=== PATIENT | male | born 1950 | race Caucasian/White ===

== ENCOUNTER 2021-08-04 07:24 | Day surgery (SDC) | payer OTHER ==
[2021-07-31 10:50] LABS: Basophils % 1.1 % (0-1.3); Lymphocytes % 22.2 % (15.3-44.8); MPV 8.9 fL (7.6-11.3); RBC Red Blood Cell Count 4.91 M/uL (4.33-5.43)
[2021-07-31 10:55] LABS: Protime INR 2.15
--- NOTE | 2021-07-31 11:26 | RAD REPORT ---
EXAM DESCRIPTION: RAD - Chest Pa And Lat (2 Views) - 07/31/2021 11:06 am CLINICAL HISTORY: Pre Op Carotid Angiogram COMPARISON: Chest Single View dated 05/17/2017 FINDINGS: Lines: None. Lungs: No evidence of edema or pneumonia. Pleural: No significant pleural effusions or pneumothorax. Cardiac: The heart size is within normal limits. Bones: No acute fractures. Other: IMPRESSION: No acute cardiopulmonary disease.
[~2021-08-04 07:24] MED LIST: HEPA 1000U/500MLS 1,000 UNIT/500 ML BAG IV ONE; LIDOCAINE 1% 20 ML MDV ONE
[2021-08-04] MEDS ORDERED: NA CHLORIDE 0.9% 500 ML ONE (08:02)
[2021-08-04] MEDS ORDERED: MIDAZOLAM HCL 2 MG/2 ML INJ ONE (09:59)
[2021-08-04] MEDS ORDERED: ATROPINE SULF 1 MG/10 ML SYR IV ONE (09:59)
[2021-08-04] MEDS ORDERED: FENTANYL CITR 100 MCG/2 ML ONE (09:59)
[2021-08-04] MEDS ORDERED: LIDOCAINE 1% 20 ML MDV ONE (10:25)
[2021-08-04 17:20] VITALS: BP 166/84; TEMP 97.2; O2SAT 94
--- NOTE | 2021-08-05 21:08 | OP ---
Date of Procedure: 08/04/2021 Surgeon: Deon Valentine MD Echocardiologist: Daksha Galeana. Procedure: Selective bilateral carotid angiograms. Indication: Cerebrovascular disease, abnormal carotid Doppler. Procedure In Detail: The patient was brought to the laborer as an outpatient on 08/04/2021. He was prepped and draped in the routine sterile fashion. He was given Versed and fentanyl for sedation. A 6-Turkish sheath was introduced in the right common femoral artery. Angiography there was very abno rmal with severe peripheral arterial disease in the common femoral, common iliac, external iliac. We were able to get through with a Wholey wire. We had to hold pressure manually for hemostasis. Yennifer o-Seal or StarClose were not possible, had his femoral access sheath in the right common femoral eric ry using the Seldinger technique and 10 mL of Xylocaine. The carotid angiogram was done using a JR4 catheter. We selected the right common carotid artery that showed a complete occlusion of the right ICA. Has some diffuse disease in the ECA. The right common carotid was normal. The catheter was th en moved to the left common carotid, which showed normal left common carotid, fairly normal external carotid, but he had severe stenosis 80% to 90% in the left internal carotid artery. There were no co mplications. Blood loss was 5 mL. The patient tolerated the procedure well. Anesthesia: Total conscious sedation was 45 minutes. Final Diagnosis: Severe cerebrovascular disease. Plan: For endarterectomy on the left side. The patient will remain in the hospital for 4 hours at [facility], then go home. I will make an arrangement for him to see Dr. Sixto Aguilar as an outpatient at [facility] for the surgery on his le ft neck. FABI/KAREN Voice ID: [id number] Report ID: [id number]
== END 2021-08-04 16:50 | disposition home or self-care (01) ==
LOC: CCL 07:24
DX: I65.23 Occlusion and stenosis of bilateral carotid arteries (principal); I70.201 Unspecified atherosclerosis of native arteries of extremities, right leg; I48.21 Permanent atrial fibrillation; I10 Essential (primary) hypertension; I35.1 Nonrheumatic aortic (valve) insufficiency; I34.0 Nonrheumatic mitral (valve) insufficiency; I42.9 Cardiomyopathy, unspecified; I51.7 Cardiomegaly; R73.03 Prediabetes; Z20.822 Contact with and (suspected) exposure to COVID-19
CPT/HCPCS: 85025; 80048; 36415; 85610; 85730; 71046; 36222; U0003; C1893; J2250; J3010; J7040; J1644

== ENCOUNTER 2023-06-16 07:00 | Day surgery (SDC) | payer OTHER ==
[2023-06-14 11:38] LABS: Absolute Lymphocytes (CBC) 2.3 K/uL (0.7-4.9); Hematocrit 43.5 % (39.6-49.0); Lymphocytes % 23.2 % (15.3-44.8); MCV 93.5 fL (80-100); MPV 10.3 fL (7.6-11.3); Platelets 360 thou/uL (152-406); RBC Red Blood Cell Count 4.65 M/uL (4.33-5.43)
[2023-06-14 11:44] LABS: Protime INR 2.04
--- NOTE | 2023-06-14 11:55 | RAD REPORT ---
EXAM DESCRIPTION: RAD - Chest Pa And Lat (2 Views) - 06/14/2023 11:09 am CLINICAL HISTORY: Pre op pending abdominal angiogram. Hypertension COMPARISON: Chest Pa And Lat (2 Views) dated 07/31/2021; Chest Single View dated 05/17/2017 TECHNIQUE: PA and lateral views of the chest were obtained. FINDINGS: The lungs are clear. Heart size is normal and central vasculature is within normal limits. No pleural effusion or pneumothorax seen. No acute bony finding noted. IMPRESSION: No acute cardiopulmonary process.
--- NOTE | 2023-06-14 13:07 | EKG ---
Test Date: 2023-06-14 Test Time: 10:44:22 Radiological Technologist: IZABEL MEASUREMENT RESULTS: Intervals: Rate: 62 VA: QRSD: 84 QT: 428 QTc: 434 [place]: P: VA: QRS: 71 T: 257 INTERPRETIVE STATEMENTS: Atrial fibrillation Moderate voltage criteria for LVH, may be normal variant Cannot rule out Septal infarct, age undetermined ST & T wave abnormality, consider inferolateral ischemia or digitalis effect Abnormal ECG Compared to ECG 06/17/2017 07:47:10 Left ventricular hypertrophy now present Sinus bradycardia no longer present Atrial abnormality no longer present Myocardial infarct finding still present ST (T wave) deviation still present Possible ischemia still present Electronically Signed On 06-14-23 13:07:27 CDT by Alfred Graves
[2023-06-16] MEDS ORDERED: LIDOCAINE 1% 20 ML MDV ONE (07:23)
[2023-06-16] MEDS ORDERED: HEPA 1000U/500MLS 2,000 UNIT/1,000 ML BAG IV ONE (07:23)
[2023-06-16] MEDS ORDERED: MIDAZOLAM HCL 2 MG/2 ML INJ ONE (07:24)
[2023-06-16] MEDS ORDERED: HEPARIN 10,000 UNIT/10 ML VIAL IV ONE (07:24)
[2023-06-16] MEDS ORDERED: HEPARIN 5000 UNIT/ML 1 ML VIAL ONE (07:24)
[2023-06-16] MEDS ORDERED: FENTANYL CITR 100 MCG/2 ML ONE (07:24)
[2023-06-16] MEDS ORDERED: VERAPAMIL HCL 10 MG/4 ML VIAL IV ONE (07:24)
[2023-06-16] MEDS ORDERED: NITROGLYCERIN/D5W 25 MG/250 ML BTL IV ONE (07:25)
[2023-06-16] MEDS ORDERED: ATROPINE SULF 1 MG/10 ML SYR IV ONE (07:25)
[2023-06-16] MEDS ORDERED: NITROGLYCERIN 100 MCG/ML SYR (for cath lab use only) IV ONE (07:25)
[2023-06-16] MEDS ORDERED: NA CHLORIDE 0.9% 500 ML ONE (07:27)
[2023-06-16 10:55] VITALS: BP 148/59; O2SAT 97
--- NOTE | 2023-06-16 18:20 | OP ---
Date of Procedure: 06/16/2023 Surgeon: DAXA MERCHANT Procedure Performed: Peripheral angiogram with runoff. Indication: Severe peripheral vascular disease. Access: Right radial artery 6-St Helenian closed with TR band. Complications: None. Bleeding: Less than 5 mL. Anesthesia: Total sedation time was 30 minutes, used fentanyl and Versed incremental doses. Description Of Procedure: After risks, benefits, alternatives were explained, the patient agreed to procedure and signed informed consent. The patient was brought into cardiac catheterization laborato , prepped and draped in the usual sterile fashion. Then, I accessed right radial artery using pedi atric micropuncture kit, placed 6-St Helenian Slender sheath, took 5-St Helenian [place] 4.0 catheter into the ao rtic root and then sent a wire into the descending aorta and then exchanged for a long 4-St Helenian pigta il catheter, placed it in the distal aorta and performed a distal aortogram and runoff. Then, I jennifer pooja the catheter and the sheath, placed TR band with good hemostasis. Findings: 1.Distal aorta is widely patent. 2.Right lower extremity; there is diffuse disease, starts with the right common iliac. There is 20% to 30% stenosis and right external iliac has focal 50%. Then, the right femoral artery has about a focal 50%. The profunda is patent and the SFA has multiple areas of stenosis, heavily calcified, ran ging between 60%and 90%, and there was a 3-vessel runoff below the knee. 3.The left lower extremity; the common iliac has 20% to 30% and the external iliac has 50% stenosis, and the common femoral artery has about 20% to 30% stenosis and the profunda is patent. Then, the S FA on the left has proximal 50% and then becomes [employer] and there were small collaterals feeding the leg besides the profunda. Conclusion: Severe bilateral peripheral vascular disease. Plan: To intervene on the right lower extremity with CSI atherectomy or shock wave and possible sten ting to be done at [place]. As far as the left side has chronic total occlusion, it is going to b e very difficult to open this artery, but we will do a close look once we do the intervention on the right leg by trying to send the catheter into the femoral artery and have a better understanding of t he left lower extremities. SR/MODL Voice ID: [id number] Report ID: [id number]
== END 2023-06-16 10:05 | disposition home or self-care (01) ==
LOC: CCL 07:00
PROVIDERS: ATTEND Internal Medicine
DX: I70.203 Unspecified atherosclerosis of native arteries of extremities, bilateral legs (principal); I70.92 Chronic total occlusion of artery of the extremities; I65.23 Occlusion and stenosis of bilateral carotid arteries; I11.0 Hypertensive heart disease with heart failure; I50.32 Chronic diastolic (congestive) heart failure; I35.0 Nonrheumatic aortic (valve) stenosis; I48.19 Other persistent atrial fibrillation; I42.9 Cardiomyopathy, unspecified; R73.03 Prediabetes; Z87.891 Personal history of nicotine dependence; Z79.01 Long term (current) use of anticoagulants; Z79.899 Other long term (current) drug therapy
CPT/HCPCS: 36200; 36415; 71046; 75630; 76937; 80048; 82947; 85025; 85610; 85730; 93005; C1893; J0461; J1644; J2001; J2250; J3010; J7040

== ENCOUNTER 2023-06-21 08:22 | Observation (INO) | payer OTHER ==
--- OUTSIDE RECORDS SUMMARY | 2023-06-21 08:28 | XMS REPORT | Continuity of Care Document ---
:1950 Author Organization [facility] t Address [address] [place] [address] [place] [id number] Care Team Providers Name Role Phone Ellen Baugh Primary Care Physician PAUL HUTCHINS Attending Clinician Unavailable ALMA GONZALEZ Attending Clinician Unavailable Leo Dial MD Attending Clinician LEO DIAL Attending Clinician Unavailable Doctor Unassigned, [place] Attending Clinician Unavailable Kanika Mancini Attending Clinician Pob, [facility] Attending Clinician Unavailable KANIKA LOOMIS Attending Clinician Unavailable PAUL HUTCHINS Admitting Clinician Unavailable ALMA GONZALEZ Admitting Clinician Unavailable Payers Payer Name Policy Type Policy Number Effective Date Expiration Date [employer] MEDICARE A B [id number] 2015 00:00:00 GENERIC MEDICARE [id number] 2015 SUPPLEMENT 00:00:00 Problems Condition Condition Condition Status Onset Resolution Last Treating Co mments Source Name Details Category Date Date Treatment Clinician Date [place] of [place] of Disease Active [facility] lower lobe lower lobe 1-07 Indira kes of left of left 00:00: Medical lung lung 00 Center Sebaceous Sebaceous Disease Active [facility] cyst cyst [facility]04 [facility] 00:[facility]: Medical 00 [place] Pleural Pleural Disease Active [facility] effusion effusion 1-03 [facility] on left on left 00:00: Medical 00 [place] Peripheral Peripheral Disease Active [facility] edema edema 1-03 [facility] bilateral bilateral 00:00: [facility] amie 00 Center Encounter Encounter Disease Active 2020-[address] [facility] for for 1-09 [facility] long-term long-term 00:00: Medi amie (current) (current) 00 Cent er use of use of antiplatel antiplatel ets/antith ets/antith rombotics rombotics Bilateral Bilateral Disease Active 2020-[address] [facility] carotid carotid 11-09 [facility] artery artery 00:00: Medical stenosis stenosis 00 Center Atheroscle Atheroscle Disease Recurre 2020-[address] [facility] [address] rosis of rosis of nce 11-09 [facility] sokaogon sokaogon 00:00: Medical arteries arteries 00 Center of of [facility] s with s with intermitte intermitte nt nt claudicati claudicati on, on, bilateral bilateral legs legs Carotid Carotid Disease Active 2020-[address] [facility] [address] artery artery 11-06 [facility] occlusion occlusion 00:00: Medi amie without without 00 Center infarction infarction , right , right Carotid Carotid Disease Active 2020-[address] [facility] artery artery 11-06 [facility] stenosis stenosis 00:00: Medica l without without 00 Center cerebral cerebral infarction infarction , , left-stent left-stent 09/09/21 09/09/21 Chronic Chronic Disease Active 2020-[address] [facility] [address] anticoagul anticoagul 11-06 Indira kes ation ation 00:00: Medical 00 Center Primary Primary Disease Active 2020-[address] [facility] [address] hypertensi hypertensi 06 Indira kes on on 00:00: Medical 00 Center HLD HLD Disease Active 2020-[address] [facility] [address] (hyperlipi (hyperlipi 11-06 Indira kes demia) demia) 00:00: Medical 00 Center PVD PVD Disease Recurre 2020-[address] [facility] (periphera (periphera nce 11-06 Indira kes l vascular l vascular 00:00: Me dical disease) disease) 00 Center with with claudicati claudicati on on Atrial Atrial Disease Recurre 2020-[address] [facility] [address] fibrillati fibrillati nce 11-06 Indira kes on (HCC) on (HCC) 00:00: Medica l with RVR with RVR 00 Center No known No known Disease Unive rs active active ity of problems problems [facility] Allergies, Adverse Reactions, Alerts Allergy Allergy Status Severity Reaction(s) Onset Inactive Treating Comm ents Source Name Type Date Date Clinician NO KNOWN [facility]ergy [facility] Drug Active Univers ALLERGIE Class ity of S [facility] Social History Social Habit Start Date Stop Date Quantity Comments Source Exposure to Not sure University of SARS-CoV-2 [facility] (event) Branch History of Smokes tobacco [facility] Tobacco use and 2021-11-11 2021-11-11 Smokeless tobacco [facility] exposure 00:[facility]:00 00:00:00 non-user Medical Center Alcohol intake 2021-11-11 2021-11-11 Ex-drinker [facility] 00:00:00 00:00:00 (finding) Medical Center Sex Assigned At [birth year] [facility] Indira enriques 00:00:00 00:00:00 Medical Center Smoking Status Start Date Stop Date Source Smokes tobacco daily 2021-11-11 00:00:00 [facility] Current some day smoker 2021-02-14 00:00:00 [facility] Medications Ordered Filled Start Stop Current Ordering Indication Dosage Frequency Signature Comments Components Source Medication Medication Date Date Medication? Clinician (SIG) Name Name digoxin 2022- No 125ug QD Take [address] [facility] (LANOXIN) 11-12 tablet [facility] 0.125 MG 00:00: 23:59 (125 mcg Medi amie tablet 00 :00 total) by Center mouth daily. rosuvastati 2022- No 20mg QD Take [address] [facility] n (CRESTOR) 11-12 tablet (20 L ukes 20 MG 00:00: 23:59 mg total) Medica l tablet 00 :00 by mouth Center daily. digoxin 2022- No 125ug QD Take [address] [facility] (LANOXIN) 11-12 tablet [facility] 0.125 MG 00:00: 23:59 (125 mcg Medi amie tablet 00 :00 total) by Center mouth daily. rosuvastati 2022- No 20mg QD Take [address] [facility] n (CRESTOR) 11-12 tablet (20 L ukes 20 MG 00:00: 23:59 mg total) Medica l tablet 00 :00 by mouth Center daily. rivaroxaban Yes Take by [facility] (XARELTO) 11-11 mouth [facility] 20 mg Tab 20:30: daily with Me dical tablet 48 dinner. Center furosemide 2022-0 Yes 40mg Q.5D Take [address] (Lasix) 40 1-11 by mouth 2 Jul[place] es MG tablet 20:30: (two) Medical 48 times Center daily. rivaroxaban 2021-0 Yes Take by [facility] (XARELTO) 1-11 mouth [facility] 20 mg Tab 20:30: daily with Me dical tablet 48 dinner. Center furosemide 2021-0 Yes 40mg Q.5D Take [address] (Lasix) 40 1-11 by mouth 2 [place] es MG tablet 20:30: (two) Medical 48 times Center daily. sacubitriL- 2021-0 Yes 1{tbl} Q.5D Take [address] valsartan 1-11 tablet by [facility] (ENTRESTO) 00:00: mouth 2 Medi amie 97-103 mg 00 (two) Center Tab times daily. sacubitriL- 2021-0 Yes 1{tbl} Q.5D Take [address] valsartan 1-11 tablet by [facility] (ENTRESTO) 00:00: mouth 2 Medi amie 97-103 mg 00 (two) Center Tab times daily. methylPREDN 2020-0 Yes [id number] 84mg Take 21 Univers ISolone 4-08 9100 tablets by ity of (MEDROL, 00:00: mouth [place] GARY,) 4 mg 00 SEE-INSTRU Med ical tablets CTIONS. Branch follow package directions methylPREDN 2021-0 Yes [id number] 84mg Take 21 Univers ISolone 4-08 9100 tablets by ity of (MEDROL, 00:00: mouth [place] GARY,) 4 mg 00 SEE-INSTRU Med ical tablets CTIONS. Branch follow package directions methylPREDN 202-0 Yes [id number] 84mg Take 21 Univers ISolone 4-08 9100 tablets by ity of (MEDROL, 00:00: mouth [place] GARY,) 4 mg 00 SEE-INSTRU Med ical tablets CTIONS. Branch follow package directions methylPREDN 2021-0 Yes [id number] 84mg Take 21 Univers ISolone 4-08 9100 tablets by ity of (MEDROL, 00:00: mouth [place] GARY,) 4 mg 00 SEE-INSTRU Med ical tablets CTIONS. Branch follow package directions methylPREDN 2021-0 Yes [id number] 84mg Take 21 Univers ISolone 4-08 9100 tablets by ity of (MEDROL, 00:00: mouth [place] GARY,) 4 mg 00 SEE-INSTRU Med ical tablets CTIONS. Branch follow package directions methylPREDN 2020-0 Yes [id number] 84mg Take 21 Univers ISolone 4-08 9100 tablets by ity of (MEDROL, 00:00: mouth [place] GARY,) 4 mg 00 SEE-INSTRU Med ical tablets CTIONS. Branch follow package directions methylPREDN 2020-0 Yes [id number] 84mg Take 21 Univers ISolone 4-08 9100 tablets by ity of (MEDROL, 00:00: mouth [place] GARY,) 4 mg 00 SEE-INSTRU Med ical tablets CTIONS. Branch follow package directions methylPREDN 2020-0 Yes [id number] 84mg Take 21 Univers ISolone 4-08 9100 tablets by ity of (MEDROL, 00:00: mouth [place] GARY,) 4 mg 00 SEE-INSTRU Med ical tablets CTIONS. Branch follow package directions methylPREDN 2020-0 Yes [id number] 84mg Take 21 Univers ISolone 4-08 9100 tablets by ity of (MEDROL, 00:00: mouth [place] GARY,) 4 mg 00 SEE-INSTRU Med ical tablets CTIONS. Branch follow package directions methylPREDN 2020-0 Yes [id number] 84mg Take 21 Univers ISolone 4-08 9100 tablets by ity of (MEDROL, 00:00: mouth [place] GARY,) 4 mg 00 SEE-INSTRU Med ical tablets CTIONS. Branch follow package directions methylPREDN 2020-0 Yes [id number] 84mg Take 21 Univers ISolone 4-08 9100 tablets by ity of (MEDROL, 00:00: mouth [place] GARY,) 4 mg 00 SEE-INSTRU Med ical tablets CTIONS. Branch follow package directions methylPREDN 1-0 Yes [id number] 84mg Take 21 Univers ISolone 4-08 9100 tablets by ity of (MEDROL, 00:00: mouth [place] GARY,) 4 mg 00 SEE-INSTRU Med ical tablets CTIONS. Branch follow package directions methylPREDN 2021-0 Yes [id number] 84mg Take 21 Univers ISolone 4-08 9100 tablets by ity of (MEDROL, 00:00: mouth [place] GARY,) 4 mg 00 SEE-INSTRU Med ical tablets CTIONS. Branch follow package directions methylPREDN 1-0 Yes [id number] 84mg Take 21 Univers ISolone 4-08 9100 tablets by ity of (MEDROL, 00:00: mouth [place] GARY,) 4 mg 00 SEE-INSTRU Med ical tablets CTIONS. Branch follow package directions methylPREDN 1-0 Yes [id number] 84mg Take 21 Univers ISolone 4-08 9100 tablets by ity of (MEDROL, 00:00: mouth [place] GARY,) 4 mg 00 SEE-INSTRU Med ical tablets CTIONS. Branch follow package directions methylPREDN 2020-0 Yes [id number] 84mg Take 21 Univers ISolone 4-08 9100 tablets by ity of (MEDROL, 00:00: mouth [place] GARY,) 4 mg 00 SEE-INSTRU Med ical tablets CTIONS. Branch follow package directions methylPREDN 2020-0 Yes [id number] 84mg Take 21 Univers ISolone 4-08 9100 tablets by ity of (MEDROL, 00:00: mouth [place] GARY,) 4 mg 00 SEE-INSTRU Med ical tablets CTIONS. Branch follow package directions ENTRESTO 2020- Yes 1{tbl} Take 1 Unive rs 49-51 mg 0-02 tablet by ity of tablet 00:00: mouth 2 (two) Medical times Branch daily. ENTRESTO 2020- Yes 1{tbl} Take 1 Unive rs 49-51 mg 0-02 tablet by ity of tablet 00:00: mouth 2 (two) Medical times Branch daily. ENTRESTO 2020- Yes 1{tbl} Take 1 Unive rs 49-51 mg 0-02 tablet by ity of tablet 00:00: mouth 2 (two) Medical times Branch daily. ENTRESTO 2020-1 Yes 1{tbl} Take 1 Unive rs 49-51 mg 0-02 tablet by ity of tablet 00:00: mouth 2 (two) Medical times Branch daily. ENTRESTO 2020- Yes 1{tbl} Take 1 Unive rs 49-51 mg 0-02 tablet by ity of tablet 00:00: mouth 2 (two) Medical times Branch daily. ENTRESTO 2020- Yes 1{tbl} Take 1 Unive rs 49-51 mg 0-02 tablet by ity of tablet 00:00: mouth 2 00 (two) Medical times Branch daily. ENTRESTO 2020- Yes 1{tbl} Take 1 Unive rs 49-51 mg 0-02 tablet by ity of tablet 00:00: mouth 2 00 (two) Medical times Branch daily. ENTRESTO 2020- Yes 1{tbl} Take 1 Unive rs 49-51 mg 0-02 tablet by ity of tablet 00:00: mouth 2 00 (two) Medical times Branch daily. ENTRESTO 2020- Yes 1{tbl} Take 1 Unive rs 49-51 mg 0-02 tablet by ity of tablet 00:00: mouth 2 (two) Medical times Branch daily. ENTRESTO 2019- Yes 1{tbl} Take 1 Unive rs 49-51 mg 0-02 tablet by ity of tablet 00:00: mouth 2 (two) Medical times Branch daily. ENTRESTO 2020- Yes 1{tbl} Take 1 Unive rs 49-51 mg 0-02 tablet by ity of tablet 00:00: mouth 2 (two) Medical times Branch daily. ENTRESTO 2020- Yes 1{tbl} Take 1 Unive rs 49-51 mg 0-02 tablet by ity of tablet 00:00: mouth 2 (two) Medical times Branch daily. ENTRESTO 2019- Yes 1{tbl} Take 1 Unive rs 49-51 mg 0-02 tablet by ity of tablet 00:00: mouth 2 00 (two) Medical times Branch daily. ENTRESTO 2020- Yes 1{tbl} Take 1 Unive rs 49-51 mg 0-02 tablet by ity of tablet 00:00: mouth 2 00 (two) Medical times Branch daily. ENTRESTO 2020- Yes 1{tbl} Take 1 Unive rs 49-51 mg 0-02 tablet by ity of tablet 00:00: mouth 2 00 (two) Medical times Branch daily. ENTRESTO 2020- Yes 1{tbl} Take 1 Unive rs 49-51 mg 0-02 tablet by ity of tablet 00:00: mouth 2 [place] 00 (two) Medical times Branch daily. ENTRESTO 2020-1 Yes 1{tbl} Take 1 Unive rs 49-51 mg 0-02 tablet by ity of tablet 00:00: mouth 2 (two) Medical times Branch daily. ENTRESTO 2020-1 Yes 1{tbl} Take 1 Unive rs 49-51 mg 0-02 tablet by ity of tablet 00:00: mouth 2 (two) Medical times Branch daily. ENTRESTO 2020-1 Yes 1{tbl} Take 1 Unive rs 49-51 mg 0-02 tablet by ity of tablet 00:00: mouth 2 (two) Medical times Branch daily. ENTRESTO 2020-1 Yes 1{tbl} Take 1 Unive rs 49-51 mg 0-02 tablet by ity of tablet 00:00: mouth 2 (two) Medical times Branch daily. ENTRESTO 2020-1 Yes 1{tbl} Take 1 Unive rs 49-51 mg 0-02 tablet by ity of tablet 00:00: mouth 2 [place] (two) Medical times Branch daily. furosemide 2020-0 Yes 40mg Take 40 mg U nivers 40 mg 9-16 by mouth ity of tablet 00:00: daily. [address] furosemide 2020-0 Yes 40mg Take 40 mg U nivers 40 mg 9-16 by mouth ity of tablet 00:00: daily. [address] furosemide 2020-0 Yes 40mg Take 40 mg U nivers 40 mg 9-16 by mouth ity of tablet 00:00: daily. [address] furosemide 2020-0 Yes 40mg Take 40 mg U nivers 40 mg 9-16 by mouth ity of tablet 00:00: daily. [address] furosemide 2020-0 Yes 40mg Take 40 mg U nivers 40 mg 9-16 by mouth ity of tablet 00:00: daily. [address] furosemide 2020-0 Yes 40mg Take 40 mg U nivers 40 mg 9-16 by mouth ity of tablet 00:00: daily. [address] furosemide 2020-0 Yes 40mg Take 40 mg U nivers 40 mg 9-16 by mouth ity of tablet 00:00: daily. [address] furosemide 2020-0 Yes 40mg Take 40 mg U nivers 40 mg 9-16 by mouth ity of tablet 00:00: daily. [address] furosemide 2020-0 Yes 40mg Take 40 mg U nivers 40 mg 9-16 by mouth ity of tablet 00:00: daily. [place] [facility] furosemide 2020-0 Yes 40mg Take 40 mg U nivers 40 mg 9-16 by mouth ity of tablet 00:00: daily. [address] furosemide 2020-0 Yes 40mg Take 40 mg U nivers 40 mg 9-16 by mouth ity of tablet 00:00: daily. [place] [facility] furosemide 2020-0 Yes 40mg Take 40 mg U nivers 40 mg 9-16 by mouth ity of tablet 00:00: daily. [address] furosemide 2020-0 Yes 40mg Take 40 mg U nivers 40 mg 9-16 by mouth ity of tablet 00:00: daily. [address] furosemide 2020-0 Yes 40mg Take 40 mg U nivers 40 mg 9-16 by mouth ity of tablet 00:00: daily. [address] furosemide 2020-0 Yes 40mg Take 40 mg U nivers 40 mg 9-16 by mouth ity of tablet 00:00: daily. [address] furosemide 2020-0 Yes 40mg Take 40 mg U nivers 40 mg 9-16 by mouth ity of tablet 00:00: daily. [address] furosemide 2020-0 Yes 40mg Take 40 mg U nivers 40 mg 9-16 by mouth ity of tablet 00:00: daily. [address] furosemide 2020-0 Yes 40mg Take 40 mg U nivers 40 mg 9-16 by mouth ity of tablet 00:00: daily. [address] furosemide 2020-0 Yes 40mg Take 40 mg U nivers 40 mg 9-16 by mouth ity of tablet 00:00: daily. [address] furosemide 2020-0 Yes 40mg Take 40 mg U nivers 40 mg 9-16 by mouth ity of tablet 00:00: daily. [address] furosemide 2020-0 Yes 40mg Take 40 mg U nivers 40 mg 9-16 by mouth ity of tablet 00:00: daily. [address] Branch FREESTYLE 2020-0 Yes USE TO [employer] LANCETS 28 9-10 CHECK ity of gauge Misc 00:00: BLOOD [place] [id number] SUGAR Medical TWICE A Branch DAY FREESTYLE 2020-0 Yes USE TO Univer s LANCETS 28 9-10 CHECK ity of gauge Misc 00:00: BLOOD [place] 00 SUGAR Medical TWICE A Branch DAY FREESTYLE 2020-0 Yes USE TO Univer s LANCETS 28 9-10 CHECK ity of gauge Misc 00:00: BLOOD [place] 00 SUGAR Medical TWICE A Branch DAY FREESTYLE 2020-0 Yes USE TO Univer s LANCETS 28 9-10 CHECK ity of gauge Misc 00:00: BLOOD [place] 00 SUGAR Medical TWICE A Branch DAY FREESTYLE 2020-0 Yes USE TO Univer s LANCETS 28 9-10 CHECK ity of gauge Misc 00:00: BLOOD [place] 00 SUGAR Medical TWICE A Branch DAY FREESTYLE 2020-0 Yes USE TO Univer s LANCETS 28 9-10 CHECK ity of gauge Misc 00:00: BLOOD [place] 00 SUGAR Medical TWICE A Branch DAY FREESTYLE 2020-0 Yes USE TO Univer s LANCETS 28 9-10 CHECK ity of gauge Misc 00:00: BLOOD [place] 00 SUGAR Medical TWICE A Branch DAY FREESTYLE 2020-0 Yes USE TO Univer s LANCETS 28 9-10 CHECK ity of gauge Misc 00:00: BLOOD [place] 00 SUGAR Medical TWICE A Branch DAY FREESTYLE 2020-0 Yes USE TO Univer s LANCETS 28 9-10 CHECK ity of gauge Misc 00:00: BLOOD [place] 00 SUGAR Medical TWICE A Branch DAY FREESTYLE 2020-0 Yes USE TO Univer s LANCETS 28 9-10 CHECK ity of gauge Misc 00:00: BLOOD [place] 00 SUGAR Medical TWICE A Branch DAY FREESTYLE 2020-0 Yes USE TO Univer s LANCETS 28 9-10 CHECK ity of gauge Misc 00:00: BLOOD [place] 00 SUGAR Medical TWICE A Branch DAY FREESTYLE 2020-0 Yes USE TO Univer s LANCETS 28 9-10 CHECK ity of gauge Misc 00:00: BLOOD [place] 00 SUGAR Medical TWICE A Branch DAY FREESTYLE 2020-0 Yes USE TO Univer s LANCETS 28 9-10 CHECK ity of gauge Misc 00:00: BLOOD [place] 00 SUGAR Medical TWICE A Branch DAY FREESTYLE 2020-0 Yes USE TO Univer s LANCETS 28 9-10 CHECK ity of gauge Misc 00:00: BLOOD [place] 00 SUGAR Medical TWICE A Branch DAY FREESTYLE 2020-0 Yes USE TO Univer s LANCETS 28 9-10 CHECK ity of gauge Misc 00:00: BLOOD [place] 00 SUGAR Medical TWICE A Branch DAY FREESTYLE 2020-0 Yes USE TO Univer s LANCETS 28 9-10 CHECK ity of gauge Misc 00:00: BLOOD [place] 00 SUGAR Medical TWICE A Branch DAY FREESTYLE 2020-0 Yes USE TO Univer s LANCETS 28 9-10 CHECK ity of gauge Misc 00:00: BLOOD [place] 00 SUGAR Medical TWICE A Branch DAY FREESTYLE 2020-0 Yes USE TO Univer s LANCETS 28 9-10 CHECK ity of gauge Misc 00:00: BLOOD [place] 00 SUGAR Medical TWICE A Branch DAY FREESTYLE 2020-0 Yes USE TO Univer s LANCETS 28 9-10 CHECK ity of gauge Misc 00:00: BLOOD [place] 00 SUGAR Medical TWICE A Branch DAY FREESTYLE 2020-0 Yes USE TO Univer s LANCETS 28 9-10 CHECK ity of gauge Misc 00:00: BLOOD [place] 00 SUGAR Medical TWICE A Branch DAY FREESTYLE 2020-0 Yes USE TO Univer s LANCETS 28 9-10 CHECK ity of gauge Misc 00:00: BLOOD [place] 00 SUGAR Medical TWICE A Branch DAY FREESTYLE 2020-0 Yes USE TO Univer s LITE STRIPS 9-06 CHECK ity of strip 00:00: BLOOD [place] 00 SUGAR Medical TWICE A Branch DAY FREESTYLE 2020-0 Yes USE TO Univer s LITE STRIPS 9- CHECK ity of strip 00:00: BLOOD [place] 00 SUGAR Medical TWICE A Branch DAY FREESTYLE 2020-0 Yes USE TO Univer s LITE STRIPS 9-06 CHECK ity of strip 00:00: BLOOD [place] 00 SUGAR Medical TWICE A Branch DAY FREESTYLE 2020-0 Yes USE TO Univer s LITE STRIPS 9-06 CHECK ity of strip 00:00: BLOOD [place] 00 SUGAR Medical TWICE A Branch DAY FREESTYLE 2020-0 Yes USE TO Univer s LITE STRIPS 9- CHECK ity of strip 00:00: BLOOD [place] 00 SUGAR Medical TWICE A Branch DAY FREESTYLE 2020-0 Yes USE TO Univer s LITE STRIPS 9- CHECK ity of strip 00:00: BLOOD [place] 00 SUGAR Medical TWICE A Branch DAY FREESTYLE 2020-0 Yes USE TO Univer s LITE STRIPS 9- CHECK ity of strip 00:00: BLOOD [place] 00 SUGAR Medical TWICE A Branch DAY FREESTYLE 2020-0 Yes USE TO Univer s LITE STRIPS 9-06 CHECK ity of strip 00:00: BLOOD [place] 00 SUGAR Medical TWICE A Branch DAY FREESTYLE 2020-0 Yes USE TO Univer s LITE STRIPS 9-06 CHECK ity of strip 00:00: BLOOD [place] 00 SUGAR Medical TWICE A Branch DAY FREESTYLE 2020-0 Yes USE TO Univer s LITE STRIPS 9- CHECK ity of strip 00:00: BLOOD [place] 00 SUGAR Medical TWICE A Branch DAY FREESTYLE 2020-0 Yes USE TO Univer s LITE STRIPS 9- CHECK ity of strip 00:00: BLOOD [place] 00 SUGAR Medical TWICE A Branch DAY FREESTYLE 2020-0 Yes USE TO Univer s LITE STRIPS 9- CHECK ity of strip 00:00: BLOOD [place] 00 SUGAR Medical TWICE A Branch DAY FREESTYLE 2020-0 Yes USE TO Univer s LITE STRIPS 9- CHECK ity of strip 00:00: BLOOD [place] 00 SUGAR Medical TWICE A Branch DAY FREESTYLE 2020-0 Yes USE TO Univer s LITE STRIPS 9- CHECK ity of strip 00:00: BLOOD [place] 00 SUGAR Medical TWICE A Branch DAY FREESTYLE 2020-0 Yes USE TO Univer s LITE STRIPS 9- CHECK ity of strip 00:00: BLOOD [place] 00 SUGAR Medical TWICE A Branch DAY FREESTYLE 2020-0 Yes USE TO Univer s LITE STRIPS 9- CHECK ity of strip 00:00: BLOOD [place] 00 SUGAR Medical TWICE A Branch DAY FREESTYLE 2020-0 Yes USE TO Univer s LITE STRIPS 9-06 CHECK ity of strip 00:00: BLOOD [place] 00 SUGAR Medical TWICE A Branch DAY FREESTYLE 2020-0 Yes USE TO Univer s LITE STRIPS 9- CHECK ity of strip 00:00: BLOOD [place] 00 SUGAR Medical TWICE A Branch DAY FREESTYLE 2020-0 Yes USE TO Univer s LITE STRIPS 9- CHECK ity of strip 00:00: BLOOD [place] 00 SUGAR Medical TWICE A Branch DAY FREESTYLE 2020-0 Yes USE TO Univer s LITE STRIPS 9- CHECK ity of strip 00:00: BLOOD [place] 00 SUGAR Medical TWICE A Branch DAY FREESTYLE 2020-0 Yes USE TO Univer s LITE STRIPS 9- CHECK ity of strip 00:00: BLOOD [place] 00 SUGAR Medical TWICE A Branch DAY metformin 2020-0 Yes TAKE 1 Univer s ER 500 mg 8-30 TABLET BY ity o f 24 hr 00:00: MOUTH 1 [place] tablet 00 (ONE) TIME Medical EACH DAY Branch WITH DINNER DO NOT CRUSH, CHEW, OR SPLIT. metformin 2020-0 Yes TAKE 1 Univer s ER 500 mg 8-30 TABLET BY ity o f 24 hr 00:00: MOUTH 1 [place] tablet 00 (ONE) TIME Medical EACH DAY Branch WITH DINNER DO NOT CRUSH, CHEW, OR SPLIT. metformin 2020-0 Yes TAKE 1 Univer s ER 500 mg 8-30 TABLET BY ity o f 24 hr 00:00: MOUTH 1 [place] tablet 00 (ONE) TIME Medical EACH DAY Branch WITH DINNER DO NOT CRUSH, CHEW, OR SPLIT. metformin 2020-0 Yes TAKE 1 Univer s ER 500 mg 8-30 TABLET BY ity o f 24 hr 00:00: MOUTH 1 [place] tablet 00 (ONE) TIME Medical EACH DAY Branch WITH DINNER DO NOT CRUSH, CHEW, OR SPLIT. metformin 2020-0 Yes TAKE 1 Univer s ER 500 mg 8-30 TABLET BY ity o f 24 hr 00:00: MOUTH 1 [place] tablet 00 (ONE) TIME Medical EACH DAY Branch WITH DINNER DO NOT CRUSH, CHEW, OR SPLIT. metformin 2020-0 Yes TAKE 1 Univer s ER 500 mg 8-30 TABLET BY ity o f 24 hr 00:00: MOUTH 1 [place] tablet 00 (ONE) TIME Medical EACH DAY Branch WITH DINNER DO NOT CRUSH, CHEW, OR SPLIT. metformin 2020-0 Yes TAKE 1 Univer s ER 500 mg 8-30 TABLET BY ity o f 24 hr 00:00: MOUTH 1 [place] tablet 00 (ONE) TIME Medical EACH DAY Branch WITH DINNER DO NOT CRUSH, CHEW, OR SPLIT. metformin 2020-0 Yes TAKE 1 Univer s ER 500 mg 8-30 TABLET BY ity o f 24 hr 00:00: MOUTH 1 [place] tablet 00 (ONE) TIME Medical EACH DAY Branch WITH DINNER DO NOT CRUSH, CHEW, OR SPLIT. metformin 2020-0 Yes TAKE 1 Univer s ER 500 mg 8-30 TABLET BY ity o f 24 hr 00:00: MOUTH 1 [place] tablet 00 (ONE) TIME Medical EACH DAY Branch WITH DINNER DO NOT CRUSH, CHEW, OR SPLIT. metformin 2020-0 Yes TAKE 1 Univer s ER 500 mg 8-30 TABLET BY ity o f 24 hr 00:00: MOUTH 1 [place] tablet 00 (ONE) TIME Medical EACH DAY Branch WITH DINNER DO NOT CRUSH, CHEW, OR SPLIT. metformin 2020-0 Yes TAKE 1 Univer s ER 500 mg 8-30 TABLET BY ity o f 24 hr 00:00: MOUTH 1 [place] tablet 00 (ONE) TIME Medical EACH DAY Branch WITH DINNER DO NOT CRUSH, CHEW, OR SPLIT. metformin 2020-0 Yes TAKE 1 Univer s ER 500 mg 8-30 TABLET BY ity o f 24 hr 00:00: MOUTH 1 [place] tablet 00 (ONE) TIME Medical EACH DAY Branch WITH DINNER DO NOT CRUSH, CHEW, OR SPLIT. metformin 2020-0 Yes TAKE 1 Univer s ER 500 mg 8-30 TABLET BY ity o f 24 hr 00:00: MOUTH 1 [place] tablet 00 (ONE) TIME Medical EACH DAY Branch WITH DINNER DO NOT CRUSH, CHEW, OR SPLIT. metformin 2020-0 Yes TAKE 1 Univer s ER 500 mg 8-30 TABLET BY ity o f 24 hr 00:00: MOUTH 1 [place] tablet 00 (ONE) TIME Medical EACH DAY Branch WITH DINNER DO NOT CRUSH, CHEW, OR SPLIT. metformin 2020-0 Yes TAKE 1 Univer s ER 500 mg 8-30 TABLET BY ity o f 24 hr 00:00: MOUTH 1 [place] tablet 00 (ONE) TIME Medical EACH DAY Branch WITH DINNER DO NOT CRUSH, CHEW, OR SPLIT. metformin 2020-0 Yes TAKE 1 Univer s ER 500 mg 8-30 TABLET BY ity o f 24 hr 00:00: MOUTH 1 [place] tablet 00 (ONE) TIME Medical EACH DAY Branch WITH DINNER DO NOT CRUSH, CHEW, OR SPLIT. metformin 2020-0 Yes TAKE 1 Univer s ER 500 mg 8-30 TABLET BY ity o f 24 hr 00:00: MOUTH 1 [place] tablet 00 (ONE) TIME Medical EACH DAY Branch WITH DINNER DO NOT CRUSH, CHEW, OR SPLIT. metformin 2020-0 Yes TAKE 1 Univer s ER 500 mg 8-30 TABLET BY ity o f 24 hr 00:00: MOUTH 1 [place] tablet 00 (ONE) TIME Medical EACH DAY Branch WITH DINNER DO NOT CRUSH, CHEW, OR SPLIT. metformin 2020-0 Yes TAKE 1 Univer s ER 500 mg 8-30 TABLET BY ity o f 24 hr 00:00: MOUTH 1 [place] tablet 00 (ONE) TIME Medical EACH DAY Branch WITH DINNER DO NOT CRUSH, CHEW, OR SPLIT. metformin 2020-0 Yes TAKE 1 Univer s ER 500 mg 8-30 TABLET BY ity o f 24 hr 00:00: MOUTH 1 [place] tablet 00 (ONE) TIME Medical EACH DAY Branch WITH DINNER DO NOT CRUSH, CHEW, OR SPLIT. metformin 2020-0 Yes TAKE 1 Univer s ER 500 mg 8-30 TABLET BY ity o f 24 hr 00:00: MOUTH 1 [place] tablet 00 (ONE) TIME Medical EACH DAY Branch WITH DINNER DO NOT CRUSH, CHEW, OR SPLIT. metoprolol 2020-0 Yes 25mg Take 25 mg U nivers succinate 8-09 by mouth 2 ity of XL 25 mg 24 00:00: (two) [place] hr tablet 00 times Medical daily. Branch metoprolol 2020-0 Yes 25mg Take 25 mg U nivers succinate 8-09 by mouth 2 ity of XL 25 mg 24 00:00: (two) [place] hr tablet 00 times Medical daily. Branch metoprolol 2020-0 Yes 25mg Take 25 mg U nivers succinate 8-09 by mouth 2 ity of XL 25 mg 24 00:00: (two) [place] hr tablet 00 times Medical daily. Branch metoprolol 2020-0 Yes 25mg Take 25 mg U nivers succinate 8-09 by mouth 2 ity of XL 25 mg 24 00:00: (two) [place] hr tablet 00 times Medical daily. Branch metoprolol 2020-0 Yes 25mg Take 25 mg U nivers succinate 8-09 by mouth 2 ity of XL 25 mg 24 00:00: (two) [place] hr tablet 00 times Medical daily. Branch metoprolol 2020-0 Yes 25mg Take 25 mg U nivers succinate 8-09 by mouth 2 ity of XL 25 mg 24 00:00: (two) [place] hr tablet 00 times Medical daily. Branch metoprolol 2020-0 Yes 25mg Take 25 mg U nivers succinate 8-09 by mouth 2 ity of XL 25 mg 24 00:00: (two) [place] hr tablet 00 times Medical daily. Branch metoprolol 2020-0 Yes 25mg Take 25 mg U nivers succinate 8-09 by mouth 2 ity of XL 25 mg 24 00:00: (two) [place] hr tablet 00 times Medical daily. Branch metoprolol 2020-0 Yes 25mg Take 25 mg U nivers succinate 8-09 by mouth 2 ity of XL 25 mg 24 00:00: (two) [place] hr tablet 00 times Medical daily. Branch metoprolol 2020-0 Yes 25mg Take 25 mg U nivers succinate 8-09 by mouth 2 ity of XL 25 mg 24 00:00: (two) [place] hr tablet 00 times Medical daily. Branch metoprolol 2020-0 Yes 25mg Take 25 mg U nivers succinate 8-09 by mouth 2 ity of XL 25 mg 24 00:00: (two) [place] hr tablet 00 times Medical daily. Branch metoprolol 2020-0 Yes 25mg Take 25 mg U nivers succinate 8-09 by mouth 2 ity of XL 25 mg 24 00:00: (two) [place] hr tablet 00 times Medical daily. Branch metoprolol 2020-0 Yes 25mg Take 25 mg U nivers succinate 8-09 by mouth 2 ity of XL 25 mg 24 00:00: (two) [place] hr tablet 00 times Medical daily. Branch metoprolol 2020-0 Yes 25mg Take 25 mg U nivers succinate 8-09 by mouth 2 ity of XL 25 mg 24 00:00: (two) [place] hr tablet 00 times Medical daily. Branch metoprolol 2020-0 Yes 25mg Take 25 mg U nivers succinate 8-09 by mouth 2 ity of XL 25 mg 24 00:00: (two) [place] hr tablet 00 times Medical daily. Branch metoprolol 2020-0 Yes 25mg Take 25 mg U nivers succinate 8-09 by mouth 2 ity of XL 25 mg 24 00:00: (two) [place] hr tablet 00 times Medical daily. Branch metoprolol 2020-0 Yes 25mg Take 25 mg U nivers succinate 8-09 by mouth 2 ity of XL 25 mg 24 00:00: (two) [place] hr tablet 00 times Medical daily. Branch metoprolol 2020-0 Yes 25mg Take 25 mg U nivers succinate 8-09 by mouth 2 ity of XL 25 mg 24 00:00: (two) [place] hr tablet 00 times Medical daily. Branch metoprolol 2020-0 Yes 25mg Take 25 mg U nivers succinate 8-09 by mouth 2 ity of XL 25 mg 24 00:00: (two) [place] hr tablet 00 times Medical daily. Branch metoprolol 2020-0 Yes 25mg Take 25 mg U nivers succinate 06-09 by mouth 2 ity of XL 25 mg 24 00:00: (two) [place] hr tablet 00 times Medical daily. Branch metoprolol 2020-0 Yes 25mg Take 25 mg U nivers succinate 06-09 by mouth 2 ity of XL 25 mg 24 00:00: (two) [place] hr tablet 00 times Medical daily. Branch XARELTO 20 2019-0 Yes TAKE 1 Unive rs mg tablet 7-27 TABLET BY ity o f 00:00: MOUTH [place] 00 EVERY DAY Medical EVENING Branch MEAL XARELTO 20 2019-0 Yes TAKE 1 Unive rs mg tablet 7-27 TABLET BY ity o f 00:00: MOUTH [place] 00 EVERY DAY Medical EVENING Branch MEAL XARELTO 20 2019-0 Yes TAKE 1 Unive rs mg tablet 7-27 TABLET BY ity o f 00:00: MOUTH [place] 00 EVERY DAY Medical EVENING Branch MEAL XARELTO 20 2019-0 Yes TAKE 1 Unive rs mg tablet 7-27 TABLET BY ity o f 00:00: MOUTH [place] 00 EVERY DAY Medical EVENING Branch MEAL XARELTO 20 2019-0 Yes TAKE 1 Unive rs mg tablet 7-27 TABLET BY ity o f 00:00: MOUTH [place] 00 EVERY DAY Medical EVENING Branch MEAL XARELTO 20 2020-0 Yes TAKE 1 Unive rs mg tablet 7-27 TABLET BY ity o f 00:00: MOUTH [place] 00 EVERY DAY Medical EVENING Branch MEAL XARELTO 20 2020-0 Yes TAKE 1 Unive rs mg tablet 7-27 TABLET BY ity o f 00:00: MOUTH [place] 00 EVERY DAY Medical EVENING Branch MEAL XARELTO 20 2020-0 Yes TAKE 1 Unive rs mg tablet 7-27 TABLET BY ity o f 00:00: MOUTH [place] 00 EVERY DAY Medical EVENING Branch MEAL XARELTO 20 2020-0 Yes TAKE 1 Unive rs mg tablet 7-27 TABLET BY ity o f 00:00: MOUTH [place] 00 EVERY DAY Medical EVENING Branch MEAL XARELTO 20 2020-0 Yes TAKE 1 Unive rs mg tablet 7-27 TABLET BY ity o f 00:00: MOUTH [place] 00 EVERY DAY Medical EVENING Branch MEAL XARELTO 20 2020-0 Yes TAKE 1 Unive rs mg tablet 7-27 TABLET BY ity o f 00:00: MOUTH [place] 00 EVERY DAY Medical EVENING Branch MEAL XARELTO 20 2020-0 Yes TAKE 1 Unive rs mg tablet 7-27 TABLET BY ity o f 00:00: MOUTH [place] 00 EVERY DAY Medical EVENING Branch MEAL XARELTO 20 2019-0 Yes TAKE 1 Unive rs mg tablet 7-27 TABLET BY ity o f 00:00: MOUTH [place] 00 EVERY DAY Medical EVENING Branch MEAL XARELTO 20 2019-0 Yes TAKE 1 Unive rs mg tablet 7-27 TABLET BY ity o f 00:00: MOUTH [place] 00 EVERY DAY Medical EVENING Branch MEAL XARELTO 20 2019-0 Yes TAKE 1 Unive rs mg tablet 7-27 TABLET BY ity o f 00:00: MOUTH [place] 00 EVERY DAY Medical EVENING Branch MEAL XARELTO 20 2019-0 Yes TAKE 1 Unive rs mg tablet 7-27 TABLET BY ity o f 00:00: MOUTH [place] 00 EVERY DAY Medical EVENING Branch MEAL XARELTO 20 2019-0 Yes TAKE 1 Unive rs mg tablet 7-27 TABLET BY ity o f 00:00: MOUTH [place] 00 EVERY DAY Medical EVENING Branch MEAL XARELTO 20 2019-0 Yes TAKE 1 Unive rs mg tablet 7-27 TABLET BY ity o f 00:00: MOUTH [place] 00 EVERY DAY Medical EVENING Branch MEAL XARELTO 20 2019-0 Yes TAKE 1 Unive rs mg tablet 7-27 TABLET BY ity o f 00:00: MOUTH [place] 00 EVERY DAY Medical EVENING Branch MEAL XARELTO 20 2019-0 Yes TAKE 1 Unive rs mg tablet 7-27 TABLET BY ity o f 00:00: MOUTH [place] 00 EVERY DAY Medical EVENING Branch MEAL XARELTO 20 2019-0 Yes TAKE 1 Unive rs mg tablet 7-27 TABLET BY ity o f 00:00: MOUTH [place] 00 EVERY DAY Medical EVENING Branch MEAL Vital Signs Vital Name Observation Time Observation Value Comments Source WEIGHT 2021-11-11 05:03:00 88.633 kg WEIGHT 2021-11-10 05:03:00 89.359 kg WEIGHT 2021-11-09 05:26:00 89.449 kg WEIGHT 2021-11-07 06:01:00 89.268 kg WEIGHT 2021-11-05 04:15:00 89.767 kg WEIGHT 2021-11-04 04:38:00 93.713 kg WEIGHT 2021-11-11 05:03:00 88.633 kg WEIGHT 2021-11-10 05:03:00 89.359 kg WEIGHT 2021-11-09 05:26:00 89.449 kg WEIGHT 2021-11-07 06:01:00 89.268 kg WEIGHT 2021-11-05 04:15:00 89.767 kg WEIGHT 2021-11-04 04:38:00 93.713 kg WEIGHT 2021-09-09 05:59:00 95.709 kg HEIGHT 2021-09-09 05:59:00 182.9 cm WEIGHT 2021-09-09 05:59:00 95.709 kg HEIGHT 2021-09-09 05:59:00 182.9 cm Systolic blood 2021-03-06 13:43:00 116 mm[Hg] [facility] [place] [facility] Diastolic blood 2021-03-06 13:43:00 77 mm[Hg] [facility] [place] [facility] Heart rate 2021-03-06 13:43:00 69 /min [facility] [place] [facility] Body height 2021-03-06 13:43:00 182.9 cm [facility] [place] [facility] Body weight 2021-03-06 13:43:00 99.791 kg [facility] [place] [facility] BMI 2021-03-06 13:43:00 29.84 kg/m2 [facility] [place] [facility] Systolic blood 2021-02-14 15:41:00 111 mm[Hg] [facility] [place] [facility] Diastolic blood 2021-02-14 15:41:00 65 mm[Hg] [facility] [place] [facility] Heart rate 2021-02-14 15:41:00 78 /min [facility] [place] [facility] Body height 2021-02-14 15:41:00 182.9 cm [facility] [place] [facility] Body weight 2021-02-14 15:41:00 99.791 kg [facility] [place] [facility] BMI 2021-02-14 15:41:00 29.84 kg/m2 [facility] [place] [facility] Systolic blood 2021-02-06 15:21:00 120 mm[Hg] [facility] [place] [facility] Diastolic blood 2021-02-06 15:21:00 73 mm[Hg] [facility] [place] [facility] Heart rate 2021-02-06 15:12:00 116 /min [facility] [place] [facility] Body height 2021-02-06 15:12:00 182.9 cm [facility] [place] [facility] Body weight 2021-02-06 15:12:00 99.791 kg [facility] [place] [facility] BMI 2021-02-06 15:12:00 29.84 kg/m2 Univers[facility] ty [facility] Branch Systolic blood 2020-08-08 13:32:00 126 mm[Hg] [facility] pressure Medical Branch Diastolic blood 2020-08-08 13:32:00 79 [facility]Hg[facility] rate 2020-08-08 13:32:00 77 /min [facility] [place] [facility] Body height 2020-08-08 13:32:00 182.9 cm [facility] [place] [facility] Body weight 2020-08-08 13:32:00 102.059 kg [facility]i [facility] Medical Branch BMI 2020-08-08 13:32:00 30.52 kg/m2 Univers[facility] Procedures Procedure Date / Time Performing Clinician Source Performed REFERRAL- 2021-02-20 05:01:00 Doctor Unassigned, No [facility] REQUEST/RESPONSE Name Medical Branch NON [facility] FACILITY 2021-02-19 05:01:00 Doctor Unassigned, No [facility] DOCUMENTATION Name Medical Branch MEDICAL 2021-02-18 05:01:00 Doctor Unassigned, No [facility] RELEASE/CLEARANCE FORMS [facility] Medical Branch XR CHEST 1 VW 2021-02-14 18:05:44 Kanika Loomis [facility] Branch MR KNEE RIGHT WO 2021-02-11 15:07:39 Leo Dial [facility] CONTRAST [facility] Branch ASSIGNMENT OF BENEFITS 2021-02-11 13:51:21 Doctor Unassigned, No [facility] XR KNEE 3 VW RIGHT 2021-02-06 14:57:34 Kanika Loomis [facility] Medical Branch ASSIGNMENT OF BENEFITS 2021-02-06 14:07:15 Doctor Unassigned, No [facility] Plan of Care Planned Activity Planned Date Details Comments Source Future Scheduled 2023-07-[address] [facility] 00:00:00 (Season Ended) [code = [facility] INFLUENZA VACCINE (Season Ended)] Future Scheduled 2023-07-02 Influenza Vaccine (#1) [facility] 00:[facility]:00 [code = Influenza Medical Ce nter Vaccine (#1)] Future Scheduled 2022-11-[address] [facility] 00:00:00 Counseling [facility] Medical Cent[facility] r Screening (12+) [code = Tobacco Cessation Counseling and Screening (12+)] Future Scheduled 2022-11-[address] [facility] 00:00:00 [facility]ing [facility] Medical Cent[facility] r Screening (12+) [code = Tobacco Cessation Counseling and Screening (12+)] Future Scheduled 2022-11-[address] [facility] 00:00:00 (12+) [code = Medical Center DEPRESSION SCREENING (12+)] Future Scheduled 2022-11-01 FALLS RISK SCREENING [facility] 00:00:00 [code = FALLS RISK Medical C enter SCREENING] Future Scheduled 2022-11-[address] [facility] 00:00:00 (12+) [code = Medical Center DEPRESSION SCREENING (12+)] Future Scheduled 2022-11-01 FALLS RISK SCREENING [facility] 00:00:00 [code = FALLS RISK Medical C enter SCREENING] Future Scheduled 2016-08-[address] [facility] 00:00:00 WELLNESS (YEAR 2 or Medical Center FIRST YEAR if no IPPE) [code = MEDICARE ANNUAL WELLNESS (YEAR 2 or FIRST YEAR if no IPPE)] Future Scheduled 2016-08-[address] [facility] 00:00:00 WELLNESS (YEAR 2 or Medical Center FIRST YEAR if no IPPE) [code = MEDICARE ANNUAL WELLNESS (YEAR 2 or FIRST YEAR if no IPPE)] Future Scheduled 2000 SHINGLES VACCINES ([address] [facility] 00:00:00 2) [code = SHINGLES Medical Center VACCINES (1 of 2)] Future Scheduled 2000 SHINGLES VACCINES ([address] [facility] 00:00:00 2) [code = SHINGLES Medical Center VACCINES (1 of 2)] Future Scheduled 1969 DTAP/TDAP/TD VACCINES [facility] 00:00:00 (1 - Tdap) [code = Medical C enter DTAP/TDAP/TD VACCINES (1 - Tdap)] Future Scheduled 1969 DTAP/TDAP/TD VACCINES [facility] 00:00:00 (1 - Tdap) [code = Medical C enter DTAP/TDAP/TD VACCINES (1 - Tdap)] Future Scheduled 1968 HEPATITIS C SCREENING [facility] 00:00:00 [code = HEPATITIS C Medical Center SCREENING] Future Scheduled 1968 HEPATITIS C [facility]CRE[facility]ING [facility] 00:00:00 [code = HEPATITIS C Medical Center SCREENING] Future Scheduled 1956 PNEUMOCOCCAL 65+ YRS ([address] [facility] 00:00:00 - PCV) [code = Medical Cente r PNEUMOCOCCAL 65+ YRS (1 - PCV)] Future Scheduled 1956 PNEUMOCOCCAL 65+ YRS ([address] [facility] 00:00:00 - PCV) [code = Medical Cente r PNEUMOCOCCAL 65+ YRS (1 - PCV)] Future Scheduled 1951-02-25 COVID-19 VACCINE (#1) [facility] 00:[facility]:00 [code = COVID-[address] VACCINE (#1)] Future Scheduled 1951-02-25 COVID-19 VACCINE (#1) [facility] 00:00:00 [code = COVID-[address] VACCINE (#1)] Future Scheduled 1950 CT Colonography (combo) [facility] 00:00:00 [code = CT Colonography [facility] (combo)] Future Scheduled 1950 Screening for malignant [facility] 00:00:00 neoplasm of colon Medical Ce nter (procedure) [code = 157069445] Future Scheduled 1950 Screening for malignant [facility] 00:00:00 neoplasm of colon Medical Ce nter (procedure) [code = 962157400] Future Scheduled 1950 Screening for malignant [facility] 00:00:00 neoplasm of colon Medical Ce nter (procedure) [code = 902288371] Future Scheduled 1950 Screening for malignant [facility] 00:00:00 neoplasm of colon Medical Ce nter (procedure) [code = 704450672] Future Scheduled 1950 Sigmoidoscopy [code = [facility] Sigmoidoscopy] Medical Cente r Future Scheduled 1950 CT Colonography (combo) [facility] 00:00:00 [code = CT Colonography [facility] (combo)] Future Scheduled 1950 Screening for malignant [facility] 00:00:00 neoplasm of colon Medical Ce nter (procedure) [code = 780775170] Future Scheduled 1950 Screening for malignant [facility] Test 00:00:00 neoplasm of colon Medical Ce nter (procedure) [code = 113048338] Future Scheduled 1950 Screening for malignant [facility] Test 00:00:00 neoplasm of colon Medical Ce nter (procedure) [code = 145422276] Future Scheduled 1950 Screening for malignant [facility] Test 00:00:00 neoplasm of colon Medical Ce nter (procedure) [code = 356794837] Future Scheduled 1950 Sigmoidoscopy [code [facility] Sigmoidoscopy] Medical Cente r Encounters Start End Encounter Admission Attending Care Care Encounter Source Date/Time Date/Time Type Type Clinicians Facility Department ID 2021-11-03 [id number] [facility] 14:58:01 PAUL 2021-11-03 2021-11-11 Inpatient [facility] [id number] [facility] 17:12:00 20:30:00 AMER Med 2021-11-03 2021-11-03 Outpatient GARRETT [facility] [id number] [facility] 15:57:58 17:11:00 PAUL 2021-11-03 2021-11-03 Outpatient LAYLAMARISA [facility] [id number] SLE 12:52:27 15:56:00 PAUL 2021-11-03 2021-11-03 Outpatient [facility] [id number] [facility] 00:00:00 00:00:00 2021-10-27 2021-10-27 Outpatient GARRETT [facility] [id number] SLE 12:38:27 23:59:00 PAUL 2021-10-27 2021-10-27 Outpatient CAMERON HESTER [facility] [id number] SLE 10:16:22 11:59:00 PAUL 2021-09-09 2021-09-10 Inpatient MARIE HESTER Surgery [id number] [facility] 05:52:00 12:01:00 PAUL 2021-08-28 2021-08-28 [id number] [facility] 08:05:54 23:59:00 PAUL 2021-08-28 2021-08-28 [id number] [facility] 08:05:41 23:59:00 PAUL 2021-03-06 2021-03-06 Office [facility] [id number] Univers 08:36:40 09:01:32 Visit Leo Brown [id number] it y of Surgical 4.2.7.2.686 [place] as Specialti [id number] Ok dical es 198 [facility] 2021-03-06 2021-03-06 Outpatient [facility] [id number] Univers 08:45:00 08:45:00 LEO leroy [facility] 2021-02-20 2021-02-20 Orders Doctor VALDEZ [id number] Univers 00:00:00 00:00:00 Only Unassigned, [place] 350.1.13.10 [facility] [place] [facility] 4.2.7.2.686 [place] as [id number] [facility] [address] [place] 2021-02-19 2021-02-19 [facility] [id number] Univers 14:53:00 23:59:00 Encounter Leo ORTIZ 350.1.13.10 [place] [id number] [facility] [address] [place] 2021-02-19 2021-02-19 [facility] [id number] Univers 00:00:00 00:00:00 LEO leroy [facility] 2021-02-19 2021-02-19 Orders Doctor JOSÉ MIGUEL [id number] Univers 00:00:00 00:00:00 Only Unassigned, [place] 350.1.13.10 [facility] [place] [facility] 4.2.7.2.686 [place] as [phone] [facility] [address] [place] 2021-02-18 2021-02-18 Orders Doctor JOSÉ MIGUEL [id number] Univers 00:00:00 00:00:00 Only Unassigned, [place] 350.1.13.10 [facility] [place] [facility] 4.2.7.2.686 [place] as [id number] [facility] [address] [place] 2021-02-17 2021-02-[address] [facility] [id number] Univers 00:00:00 00:00:00 Leo Haq Kevin 350.1.13.10 it y of Surgical 4.2.7.2.686 [place] Special[place] [id number] Ok dical es 198 [facility] 2021-02-14 2021-02-14 Hospital [facility] [id number] Univers 12:21:45 23:59:00 Encounter Kanika Walker 350.1.13.10 [place] [id number] [facility] [address] [place] 2021-02-14 2021-02-14 Business Planner Arias, Dahlia Lab Main [facility] [id number] Univers 12:23:26 12:38:26 Visit Leo Dial 350.1.13.10 [place] [facility] [phone] Ok dical nal 353 [facility] 2021-02-14 2021-02-14 Office [facility] [id number] Univers 10:33:26 10:48:26 Visit Kanika Brown 350.1.13.10 it y of Surgical 4.2.7.2.686 [place] Specialti [phone] Me dical es 198 [facility] 2021-02-14 2021-02-14 Outpatient R [facility] [id number] Univers 10:45:00 10:45:00 KANIKA leroy [facility] 2021-02-11 2021-02-11 [facility] [id number] Univers 08:52:47 23:59:00 Encounter Leo Haq Denise 350.1.13.10 ity [place] 4.2.7.2.[address] [facility] [id number] [facility] [address] [place] 2021-02-11 2021-02-11 Outpatient R [facility] [id number] Univers 00:00:00 00:00:00 LEO leroy [facility] 2021-02-11 2021-02-11 Orders Doctor JOSÉ MIGUEL 1.2.840.114 [id number] Univers 00:00:00 00:00:00 Only Unassigned, [place] 350.1.13.10 [facility] [place] [facility] 4.2.7.2.686 [place] as [phone] [facility] [address] [place] 2021-02-06 2021-02-06 [facility] [id number] Univers 09:15:00 23:59:00 Encounter Kanika Shahton 350.1.13.10 ity of [place] 4.2.7.2.[address] [facility] [id number] [facility] [address] [place] 2021-02-06 2021-02-06 Office [facility] [id number] Univers 10:05:58 10:34:29 Visit Leo Haq [facility] 350.1.13.10 it y of Surgical 4.2.7.2.686 [place] Specialti [phone] Ok dical es 198 [facility] 2021-02-06 2021-02-06 Outpatient Nico [facility] [id number] Univers 10:00:00 10:00:00 LEO leroy [facility] 2021-02-06 2021-02-06 Orders Doctor VALDEZ 1.2.840.114 [id number] Univers 00:00:00 00:00:00 Only Unassigned, [place] 350.1.13.10 [facility] [place] [facility] 4.2.7.2.686 [place] as [id number] [address] 2021-02-06 2021-02-[address] [facility] 1.2.840.114 [id number] Univers 00:00:00 00:00:00 Leo Haq [facility] 350.1.13.10 it y of Surgical 4.2.7.2.686 [place] Specialti [id number] Ok dical es 198 [facility] 2020-08-08 2020-08-[address] [facility] [id number] Univers 08:24:04 09:25:48 Visit Leo [facility] 350.1.13.10 it y of Surgical 4.2.7.2.686 [place] Specialti [id number] Ok dicnd es 198 [facility] 2020-08-08 2020-08-08 Outpatient R JAYRO [facility] [id number] Univers 08:45:00 08:45:00 [facility] Results Test Description Test Time Test Comments Results Result [facility] e Comments TISSUE EXAM 2021-11-01 Surgical Pathology 4 Report Case: [id number] 11:03:10 Authorizing Provider: Donis Valdes MD Collected: 11/11/2021 09:10 AM Ordering Location: [address] Received: 11/11/2021 12:51 PM Service Pathologist: Leta Saucedo MD Specimen: Lung, Left A. LUNG, LEFT, NOT FURTHER SPECIFIED, CT GUIDED BIOPSY: - NON-NECROTIZING GRANULOMATOUS INFLAMMATION (SEE COMMENT) - NEGATIVE FOR MALIGNANCY Signing Pathologist Direct Phone Line: [phone] ly signed by Leta Saucedo MD on 11/14/2021 at 11:03 AMSections shows needle cores with fibroinflammatory tissue with occasional small, compact well-formed granulomas.Special stain for GMS and AFB are negative for fungal and acid-fast micro-organisms respectively. Correlation with cultures and serology is recommended.Clinical history of rheumatoid arthritis is noted. In the absence of infection, findings could be compatible with the same.The case was given to Dr. Saucedo on 11/14/[id number] al fibrillation, left pleural effusion, hypertensionLung, leftA. Received in formalin labeled with the patient's name, medical record number and "lung, left" are 2 white soft tissue cores measuring 1.3 cm and 0.6 cm in length submitted in toto in A1.GABRIELLA Mccormick PA ([facility])cm Performed.The interpretation of this case included the use of immunohistochemistry or special stains.Control Slides Examined: In-house known positive controls were evaluated along with the test tissue. These control slides run alongside of the patients sample show appropriate staining. Internal positive and negative controls when available are evaluated Immunohistochemistry technical testing was performed at [facility], Pathology Laboratory where it was developed and its performance characteristics were determined. It has not been cleared or approved by the U.S. Food and Drug Administration. The FDA has determined that such clearance or approval is not necessary. The test is used for clinical purposes. It should not be regarded as investigational or for research. This laboratory is certified under the Clinical Laboratory Improvement Amendments of 1988 (CLIA-88) as qualified to perform high complexity clinical laboratory testing. CT, BIOPSY, LUNG 2021-11-01 Reason for 1 exam:->left lower 14:58:00 [facility] 1950 Sex: M FINAL REPORT CT-guided lung biopsy Indication:left lower lung mass Consent: The risks, benefits, and alternatives to the procedure were discussed with the patient. The patient expressed understanding and informed written consent was obtained. Time out: A pre-procedure time out was performed in order to confirm the appropriate site of the procedure. SEDATION: Moderate sedation was administered 0.5 mg of Versed and 25 of fentanyl IV was used for moderate sedation monitored under my direction. Total intraservice time of sedation was 30 minutes. The patient's vital signs were monitored throughout the procedure and recorded in the patient's medical record by the nurse sedation. Local anesthesia: 5 cc of 2% lidocaine Technique:This exam was performed according to our departmental dose-optimization program which includes automated exposure control, adjustment of the mA and/or kV according to patient size and/or use of iterative reconstruction technique. The patient's CT is reviewed, and the lung abnormality is localized. With the patient prone, the area is scanned, without intravenous contrast administration. After the skin over the area is marked, the skin is prepped and draped in the usual sterile manner. After local anesthesia is achieved, a 18-gauge coaxial needle is advanced into the abnormality under CT guidance.A total of to 20-gauge core biopsies were obtained. Postprocedure CT evaluation of the area reveals no evidence of pneumothorax or hemorrhage. Patient disposition: Stable with follow-up radiographs ordered. Impression: Successful and uncomplicated CT-guided left lower lobe pleural-based mass core biopsy is performed. Signed: Krunal Quevedo MDReport Verified Date/Time: 11/11/2021 14:58:52 Reading Location: [place] [address] Angio Body Reading Room , CHEST, 1 2021-11-01 Reason for VIEW, NON DEPT 1 exam:->3 hours 13:35:00 post LLL lung [facility] biopsyShould this - [facility]: be performed at [facility] the bedside?->Yes : 1950 Sex: M FINAL REPORT Exam: RAD, CHEST, 1 VIEW, NON DEPTDate: 11/11/2021 1:34 PM Indication: Postoperative/Postproced ural Comparison: CXR earlier the same day FINDINGS: Lines/Tubes:EKG leads overlie the chest. Lungs:The lungs are mildly hyperinflated. There is perihilar fullness and indistinctness of the pulmonary vasculature. Pleura:Trace left pleural effusion. No pneumothorax. Heart/Mediastinum:The cardiomediastinal silhouette is unchanged in size and contour. Atherosclerotic calcifications of the thoracic aorta. Bones/Soft Tissues: No acute osseous injury. Abdomen: No free air below the diaphragm. IMPRESSION:No pneumothorax status post left lung biopsy. Unchanged pulmonary interstitial edema and trace left pleural effusion. Signed: Marie Venegas Verified Date/Time: 11/11/2021 13:35:45 , CHEST, 1 2021-11-01 Reason for VIEW, NON DEPT 1 exam:->LLL lung 09:41:00 biopsyShould this [facility] be performed at - [facility] CENTERName: the bedside?->Yes [facility] : 1950 Sex: M FINAL REPORT INDICATION: LLL lung biopsy COMPARISON: 11/09/2021 TECHNIQUE: Single frontal view of the chest. FINDINGS: Lungs and pleura: Mild diffuse interstitial thickening is unchanged. No significant pneumothorax status post biopsy. Trace bilateral effusions persists.Heart and mediastinum: Normal heart size. Unremarkable mediastinal contours.Osseous structures: No acute abnormality.Other: None. IMPRESSION: No significant pneumothorax status post biopsy. Signed: Taylor Zaidi Verified Date/Time: 11/11/2021 09:41:58 Reading Location: [facility] Radiology Reading Room (CELLAVISION MANUAL DIFF) 2021-11-11 07:36:40 Test Item Value Reference Range Interpretation Comme nts NEUTROPHILS - REL (CELLAVISION)(BEAKER) (test code = 2816) 57 % LYMPHOCYTES - REL (CELLAVISION)(BEAKER) (test code = 2817) 15 % MONOCYTES - REL (CELLAVISION)(BEAKER) (test code = 2818) 6 % EOSINOPHILS - REL (CELLAVISION)(BEAKER) (test code = 2819) 19 % ATYPICAL LYMPHOCYTES - REL (CELLAVISION)(BEAKER) (test code = 2 % 0-0 H 2829) NEUTROPHILS - ABS (CELLAVISION)(BEAKER) (test code = 2830) 6.16 K/ul 1.78-5.38 H LYMPHOCYTES - ABS (CELLAVISION)(BEAKER) (test code = 2831) 1.62 K/u l 1.32-3.57 MONOCYTES - ABS (CELLAVISION)(BEAKER) (test code = 2832) 0.65 K/uL 0.30-0.82 EOSINOPHILS - ABS (CELLAVISION)(BEAKER) (test code = 2834) 2.05 K/uL 0.04-0.54 H ATYPICAL LYMPHOCYTES - ABS (CELLAVISION)(BEAKER) (test code = 0.22 K/uL 0.00-0.00 H 2858) TOTAL COUNTED (BEAKER) (test code = 1351) 100 WBC MORPHOLOGY (BEAKER) (test code = 487) Normal GIANT PLATELETS (BEAKER) (test code = 313) Present POLYCHROMATOPHILLIC RBCS(BEAKER) (test code = 478) 1+ few ARTIFACT (CELLAVISION)(BEAKER) (test code = 3432) Present PLATELET CONCENTRATION (CELLAVISION)(BEAKER) (test code = Adequate 3438) Web Publisher ID - Scarlett Garcia comments: Slide comments:CBC W/PLT COUNT & AUTO [id number] 07:36:38 Test Item Value Reference Range Interpretation Comments WHITE BLOOD CELL COUNT (BEAKER) 10.8 K/ L 3.5-10.5 H (test code = 775) RED BLOOD CELL COUNT (BEAKER) 4.23 M/ L 4.63-6.08 L (test code = 761) HEMOGLOBIN (BEAKER) (test code = 12.8 GM/DL 13.7-17.5 L 410) HEMATOCRIT (BEAKER) (test code = 41.5 % 40.1-51.0 411) MEAN CORPUSCULAR VOLUME (BEAKER) 98.1 fL 79.0-92.2 H (test code = 753) MEAN CORPUSCULAR HEMOGLOBIN 30.3 pg 25.7-32.2 (BEAKER) (test code = 751) MEAN CORPUSCULAR HEMOGLOBIN CONC 30.8 GM/DL 32.3-36.5 L (BEAKER) (test code = 752) RED CELL DISTRIBUTION WIDTH 15.3 % 11.6-14.4 H (BEAKER) (test code = 412) PLATELET COUNT (BEAKER) (test 402 K/CU MM 150-450 code = 756) MEAN PLATELET VOLUME (BEAKER) 11.7 fL 9.4-12.4 (test code = 754) NUCLEATED RED BLOOD CELLS 0 /100 WBC 0-0 (BEAKER) (test code = 413) PROTHROMBIN [id number] 06:42:58 Test Item Value Reference Range Interpretation Comments PROTIME (BEAKER) 13.8 seconds 11.9-14.2 (test code = 759) INR (BEAKER) (test 1.08 See_Comment [Automat ed message] code = 370) The system CNS Response generated this result transmitted ref erence range: <=5.90. The reference range was not used to int erpret this result as normal/abnormal . RECOMMENDED COUMADIN/WARFARIN INR THERAPY RANGESSTANDARD DOSE: 2.0 - 3.0 Includes: PROPHYLAXIS for venous thrombosis, systemic embolization; TREATMENT for venous thrombosis and/or pulmonary embolus.HIGH RISK: Target INR is 2.5-3.5 for patients with mechanical heart valves.BASIC METABOLIC [id number] 06:39:41 Test Item Value Reference Range Interpretation Comments SODIUM (BEAKER) 136 meq/L 136-145 (test code = 381) POTASSIUM (BEAKER) 3.8 meq/L 3.5-5.1 (test code = 379) CHLORIDE (BEAKER) 96 meq/L 98-107 L (test code = 382) CO2 (BEAKER) (test 33 meq/L 22-29 H code = 355) BLOOD UREA NITROGEN 14 mg/dL 7-21 (BEAKER) (test code = 354) CREATININE (BEAKER) 0.75 mg/dL 0.57-1.25 (test code = 358) GLUCOSE RANDOM 97 mg/dL 70-105 (BEAKER) (test code = 652) CALCIUM (BEAKER) 9.2 mg/dL 8.4-10.2 (test code = 697) EGFR (BEAKER) (test 103 mL/min/1.73 ESTIM ATED GFR IS code = 1092) sq m NOT ACCURATE CREATININE CLEARANCE IN PREDICTING GLOMERULAR FILTRATION RATE . ESTIMATED GFR I S NOT APPLICABLE FOR DIALYSIS PATIEN TS. Web Publisher ID - YANIRA MSARS-COV2/RT-PCR ([facility])2021-11-11 05:15:17 Test Item Value Reference Range Interpretation Comments SARS-COV2/RT-PCR (test code = Negative Negative [id number]) Negative result for this test determines that SARS-CoV-2 RNA was not present in the specimen above the Limit of Detection (LOD). However, Negative results do not preclude SARS-CoV-2 infection and should not be used as the sole basis for treatment or patient management decisions. Negative results must be combined with clinical observations, patient history, and epidemiological information. A false negative result may occur if a specimen is improperly collected, transported, or handled. A false negative result should be considered if patient's recent exposures or clinical presentation indicate that COVID-19 (SARS-CoV-2) is likely and diagnostic tests for other causes of illness are negative. Re-testing should be considered in cases of suspected false negatives.The limit of detection for this assay is 100 copies/mL.This SARS-CoV-2 test is a real-time RT_PCR test intended for the qualitative detection of nucleic acid from SARS-CoV-2 in a nasopharyngeal swab specimen collected from individuals suspected of COVID-19 by their healthcare provider.This test has not been Food and Drug Administration (FDA) cleared or approved. This is a modified version of an approved Emergency Use Authorization (EUA) and is in the process of review by the FDA. Once authorized by the FDA, the issued EUA will be effective until the declaration that circumstances exist justifying the authorization of the emergency use of in vitro diagnostic tests for detection and/or diagnosis of COVID-19 is terminated under Section 564(b)(2) of the Act or the EUA is revoked under Section 564(g) of the Act.Testing was performed using Planwise SARS-CoV-2 assay.Fact Sheet for Healthcare Providers:https://www.[employer].jiang/tra/RT SARS-CoV-2 HCP Fact Sheet 51- 829091.pdfFact Sheet for Healthcare Patients:https://www.[employer]/tra/RT SARS-CoV-2 Patient Fact Sheet EN 51-498257G0.pdfPOCT-GLUCOSE [id number] 20:53:06 Test Item Value Reference Range Interpretation Comments POC-GLUCOSE METER 145 mg/dL 70-110 H : TESTED A T [facility] 6720 (BEAKER) (test code = [facility]) 53341: Web Publisher/Techni mi ID = [id number] for Re yes, Sairy POCT-GLUCOSE [id number] 18:10:37 Test Item Value Reference Range Interpretation Comments POC-GLUCOSE METER 155 mg/dL 70-110 H : TESTED A T [facility] 6720 (BEAKER) (test code = [facility]) 03546: Web Publisher/Techni mi ID = [id number] for Ma rtinez Smiley, Tanairy POCT-GLUCOSE [id number] 12:38:35 Test Item Value Reference Range Interpretation Comments POC-GLUCOSE METER 141 mg/dL 70-110 H : TESTED A T [facility] 6720 (BEAKER) (test code = [facility], 1538) 92488: Web Publisher/Techni mi ID = [id number] for Ma rtinez Smiley, Tanairy POCT-GLUCOSE [id number] 08:40:57 Test Item Value Reference Range Interpretation Comments POC-GLUCOSE METER 137 mg/dL 70-110 H : TESTED A T [facility] 6720 (BEAKER) (test code = [facility], [facility]8) 72744: Web Publisher/Techni mi ID = [id number] for Mindy ibrahiminez Smiley, Tanairy DIGOXIN [id number] 05:04:31 Test Item Value Reference Range Interpretation Comments DIGOXIN LEVEL (SEDRICK) (test code 0.50 ng/mL 0.80-2.00 L = 669) Web Publisher ID - SHARLA GPOCT-GLUCOSE [id number] 20:40:42 Test Item Value Reference Range Interpretation Comments POC-GLUCOSE METER 182 mg/dL 70-110 H : TESTED A T [facility] 6720 ([facility]) (test code = [facility], 1538) 42485: Web Publisher/Techni mi ID = [id number] for Re yes, Sairy POCT-GLUCOSE [id number] 18:02:29 Test Item Value Reference Range Interpretation Comments POC-GLUCOSE METER 123 mg/dL 70-110 H : TESTED A T [facility] 6720 ([facility]) (test code = [facility], 1538) 27362: Web Publisher/Techni mi ID = [id number] for Ma rtinez Smiley, Tanairy POCT-GLUCOSE [id number] 13:05:05 Test Item Value Reference Range Interpretation Comments POC-GLUCOSE METER 187 mg/dL 70-110 H : TESTED A T [facility] 6720 ([facility]) (test code = [facility], 1538) 49177: Web Publisher/Techni mi ID = [id number] for Ma rtinez Smiley, Tanairy POCT-GLUCOSE [id number] 08:21:20 Test Item Value Reference Range Interpretation Comments POC-GLUCOSE METER 123 mg/dL 70-110 H : TESTED A T [facility] 6720 ([facility]) (test code = [facility], [facility]8) 79298: Web Publisher/Techni mi ID = [id number] for Ma rtinez Smiley, Tanairy RAD, CHEST, 1 VIEW, NON [id number] 03:15:00Reason for exam:->chest tubeShould this be performed at the bedside?->[facility] 1950 Sex: MFINAL REPORT CLINICAL INDICATION: Chest tube Comparison: 11/08/2021 The cardiomediastinal contours are stable. Bilateral parenchymal and left pleural opacities are unchanged. There is no pneumothorax. A left-sided chest tube remains in place. Signed: Lyn Dyereport Verified Date/Time: 11/09/2021 03:15:54 -GLUCOSE [id number] 20:12:15 Test Item Value Reference Range Interpretation Comments POC-GLUCOSE METER 163 mg/dL 70-110 H : TESTED A T [facility] 6720 (BEAKER) (test code = [facility], 1538) 50519: Web Publisher/Techni mi ID = [id number] for PI RIYA, KIRSTIE POCT-GLUCOSE [id number] 16:43:12 Test Item Value Reference Range Interpretation Comments POC-GLUCOSE METER 145 mg/dL 70-110 H : TESTED A T [facility] 6720 (BEAKER) (test code = [facility], 1538) 36042: Web Publisher/Techni mi ID = [id number] for Al jasvir, Ashley BODY FLUID CULTURE + GRAM [id number] 14:36:40 Test Item Value Reference Range Interpretation Comments CULTURE (BEAKER) (test code = 1095) No growth POCT-GLUCOSE [id number] 11:58:07 Test Item Value Reference Range Interpretation Comments POC-GLUCOSE METER 163 mg/dL 70-110 H : TESTED A T [facility] 6720 (BEAKER) (test code = [facility], 1538) 40791: Web Publisher/Techni mi ID = [id number] for YAJAIRA JUSTINA, JEVON POCT-GLUCOSE [id number] 07:45:59 Test Item Value Reference Range Interpretation Comments POC-GLUCOSE METER 148 mg/dL 70-110 H : TESTED A T [facility] 6720 (SEDRICK) (test code = [facility] Nico [facility], 1538) 21715: Web Publisher/Techni mi ID = [id number] for JEVON GUTIERREZ RAD, CHEST, 1 VIEW, NON [id number] 06:27:00Reason for exam:->chest tubeShould this be performed at the bedside?->Yes [facility] 1950 Sex: MFINAL REPORT Chest, one view. HISTORY: chest tube COMPARISON: Radiograph from yesterday IMPRESSION: A left basilar pigtail pleural catheter is unchanged in position. The left basilar streaky lung opacities are slightly decreased. The interstitial opacities of lungs have increased compared the prior examination are concerning for interstitial pulmonary edema. However, infection is also in the differential. No pleural effusion or pneumothorax. The cardiac silhouette is unchanged in size. No acute bone abnormality. Signed: Rae Lara Verified Date/Time: 11/08/2021 06:27:14 POCT-GLUCOSE [id number] 21:47:43 Test Item Value Reference Range Interpretation Comments POC-GLUCOSE METER 133 mg/dL 70-110 H : TESTED A T [facility] 6720 (BEDAIN) (test code = [facility] Nico [facility], 1538) 80065: Web Publisher/Techni mi ID = [id number] for Co rtLuis Antonio coffeyavia POCT-GLUCOSE [id number] 17:35:05 Test Item Value Reference Range Interpretation Comments POC-GLUCOSE METER 169 mg/dL 70-110 H : TESTED A T [facility] 6720 (SEDRICK) (test code = [facility] [place], 1538) 95536: Web Publisher/Techni mi ID = [id number] for JEVON GUTIERREZ [id number] 13:46:31Medical Cytology Report Case: [id number] Authorizing Provider: Paul Hutchins MD Collected: 11/04/2021 03:00 PM Ordering Location: [address] Received: 11/04/2021 04:16 PM Service P athologist: Jes Holley MD Specimen: Pleural, Left PLEURAL, LEFT, FLUID (CYTOSPINS AND CELL BLOCK):-Negative for malignancy-Reactive mesothelial cells in a background of numerous lymphocytes, abundant eosinophils and histiocytes Signing Pathologist Direct Phone Line: [phone] onically signed by Jes Holley MD on 11/07/2021 at 1:46 PMImmunohistochemical stains performed on the cell block show MOC31 and BERBP 4 are negative, while calretinin and WT 1 highlight the scattered mesothelial cells, supporting the above diagnosis.42685, 91577,[id number] pleural effusion; dyspnea PLEURAL, LEFT, FLUIDReceived 1100 ml brown fluid; prepared 4 cytospins and cell block(A2) - cell block fixed in formalin at 11:35 am on 11/05/21Performed. SatisfactoryThe interpretation of this case included the use of immunohistochemistry or special stains.Control Slides Examined: In-house known positive controls were evaluated along with the test tissue. These control slides run alongside of the patients sample show appropriate staining. Internal positive and negative controls when available are evaluated Immunohistochemistry technical testing was performed at [facility], Pathology Laboratory where it was developed and its performance characteristics were d etermined. It has not been cleared or approved by the U.S. Food and Drug Administration. The FDA hasdetermined that such clearance or approval is not necessary. The test is used for clinical purposes.It should not be regarded as investigational or for research. This laboratory is certified under theClinical Laboratory Improvement Amendments of 1988 (CLIA-88) as qualified to perform high complexityclinical laboratory testing.[facility], Department of Pathology, [address] [place] [address], [facility], [facility] of [facility],[address] [place] [address], [facility], Departmentof Pathology, [address] [place] [address], EQF, CHEST, 1 VIEW, NON [id number] 13:28:00Reason for exam:- >Chest tube placed to watersealShould this be performed at the bedside?->[facility] 1950 Sex: MFINAL REPORT INDICATION: Chest tube placed to waterseal COMPARISON: 11/07/2021 TECHNIQUE: Single frontal view of the chest. FINDINGS: Lungs and pleura: Bibasilar airspace disease. No effusion.Heart and mediastinum: Normal heart size. Unremarkable mediastinal contours.Osseous structures: No acute abnormality.Other: Vascular graft overlies the left neck. IMPRESSION: Bibasilar airspace disease Signed: Taylor Zaidi Verified Date/Time: 11/07/2021 13:28:57 Reading Location: [facility] Radiology Reading Room POCT-GLUCOSE METER 2021-11-07 11:39:18 Test Item Value Reference Range Interpretation Comments POC-GLUCOSE METER 155 mg/dL 70-110 H : TESTED A T [facility] 6720 (SEDRICK) (test code = [facility] [place], 1538) 99949: Web Publisher/Techni mi ID = [id number] for YAJAIRA HN, JEVON CT, CHEST, WITHOUT [id number] 08:16:00Unlisted Reason for Exam - Click Yes and Enter Reason Below->Yessuspected malignancyUnlisted Reason for Exam- >suspected malignancy [facility] 1950 Sex: MFINAL REPORT CT, CHEST, WITHOUT CONTRAST INDICATION: Unlisted Reason for Examsuspected malignancy COMPARISON: CT angiography head and neck 08/28/2021 TECHNIQUE: CT, CHEST, WITHOUT CONTRAST. This exam was performed according to our departmental dose optimization program which includes automated exposure control, adjustment of the mA and/or kV according to patient size and/or use of iterative reconstruction technique. FINDINGS: Lungs: Innumerable scattered sub 6 mm solid pulmonary nodules. A 3.3 x 2.4 cm solid subpleural nodule in left lower lobe. Interlobular septal thickening greatest in the left lower lobe. Centrilobular emphysema.Central airways: Patent.Pleura: A left-sided chest tube. A trace left pleural effusion. Trace gas within the left pleural space.Lymph nodes: Suboptimal evaluation of the hilar lymph nodes without IV contrast. A 2.2 cm short axis subcarinal, and a 1.3 cm short axis right upper paratracheal lymph node and additional subcentimeter short axis mediastinal lymph nodes.Cardiovascular: A partially visualized left common carotid stent. Mild atheroscleroticdisease of the coronary arteries and moderate atherosclerotic disease of the thoracic aorta and branch vessels.Thyroid gland: An approximately 3 cm nodule in the right lobe the thyroid gland, no convincing change from 08/20/2021, with a coarse calcification.Esophagus: UnremarkableIncluded upper abdomen: Punctate hepatic calcifications suggesting old granulomatous disease. No normal spleen in the leftupper quadrant. A 2.6 cm lobulated mass or small residual spleen in the left upper quadrant of the abdomen, has small amount of internal calcifications and abuts the left upper pole of the kidney.Chestwall: Unremarkable.Bones: Unremarkable. IMPRESSION: 1.A 3.3 cm mass in the left lower lobe. 2.Innumerable sub-6 mm pulmonary nodules, small left pleural effusion, and interlobular septal thickening concerning for lymphangitic spread of disease. 3.Mediastinal lymph nodes up to 2.2 cm short axis are concerning for metastases. 4.A 3 cm nodule in the right lobe of the thyroid gland. Correlate with ultraso und. 5.A 2.6 cm lobulated mass or small residual spleen in the left upper quadrant of the abdomen, abuts the left kidney. Signed: Jared Roland [facility] Verified Date/Time: 11/07/2021 08:16:41 RAD, CHEST, 1 VIEW, NON [id number] 07:40:00 Reason for exam:->chest tubeShould this be performed at the bedside?->Yes [facility] 1950 Sex: MFINAL REPORT RAD, CHEST, 1 VIEW, NON DEPT INDICATION: chest tube COMPARISON: Priorday's exam FINDINGS: Portable frontal view of the chest. IMPRESSION: Support Lines: Left pleural catheter Lungs and pleura: Small left effusion. Increased basilar airspace disease. No significant pneumothorax. Heart and mediastinum: Stable contours. Stable surgical changes. Additional findings: None. Signed: Taylor Zaidi MDReport Verified Date/Time: 11/07/2021 07:40:18 Reading Location: [facility] Radiology Reading Room POCT-GLUCOSE [id number] 07:27:23 Test Item Value Reference Range Interpretation Comments POC-GLUCOSE METER 134 mg/dL 70-110 H : TESTED A T [facility] 6720 (BEAKER) (test code = [facility], 1538) 87666: Web Publisher/Techni mi ID = [id number] for JEVON GUTIERREZ BASIC METABOLIC [id number] 07:13:07 Test Item Value Reference Range Interpretation Comments SODIUM (BEAKER) 133 meq/L 136-145 L (test code = 381) POTASSIUM (BEAKER) 3.9 meq/L 3.5-5.1 (test code = 379) CHLORIDE (BEAKER) 96 meq/L 98-107 L (test code = 382) CO2 (BEAKER) (test 29 meq/L 22-29 code = 355) BLOOD UREA NITROGEN 19 mg/dL 7-21 (BEAKER) (test code = 354) CREATININE (BEAKER) 0.86 mg/dL 0.57-1.25 (test code = 358) GLUCOSE RANDOM 167 mg/dL 70-105 H (BEAKER) (test code = 652) CALCIUM (BEAKER) 8.7 mg/dL 8.4-10.2 (test code = 697) EGFR (BEAKER) (test 88 mL/min/1.73 ESTIMA REGGIE GFR IS code = 1092) sq m NOT ACCURATE CREATININE CLEARANCE IN PREDICTING GLOMERULAR FILTRATION RATE . ESTIMATED GFR I S NOT APPLICABLE FOR DIALYSIS PATIEN TS. Web Publisher ID - EDUAR Cary ID - YANIRA MCBC W/PLT COUNT & AUTO DIFFERENTIAL 2021-11-07 04:30:43 Test Item Value Reference Range Interpretation Comments WHITE BLOOD CELL COUNT (BEAKER) 11.2 K/ L 3.5-10.5 H (test code = 775) RED BLOOD CELL COUNT (BEAKER) 4.04 M/ L 4.63-6.08 L (test code = 761) HEMOGLOBIN (BEAKER) (test code = 12.4 GM/DL 13.7-17.5 L 410) HEMATOCRIT (BEAKER) (test code = 39.2 % 40.1-51.0 L 411) MEAN CORPUSCULAR VOLUME (BEAKER) 97.0 fL 79.0-92.2 H (test code = 753) MEAN CORPUSCULAR HEMOGLOBIN 30.7 pg 25.7-32.2 (BEAKER) (test code = 751) MEAN CORPUSCULAR HEMOGLOBIN CONC 31.6 GM/DL 32.3-36.5 L (BEAKER) (test code = 752) RED CELL DISTRIBUTION WIDTH 15.4 % 11.6-14.4 H (BEAKER) (test code = 412) PLATELET COUNT (BEAKER) (test 332 K/CU MM 150-450 code = 756) MEAN PLATELET VOLUME (BEAKER) 10.8 fL 9.4-12.4 (test code = 754) NUCLEATED RED BLOOD CELLS 0 /100 WBC 0-0 (BEAKER) (test code = 413) NEUTROPHILS RELATIVE PERCENT 57 % (BEAKER) (test code = 429) LYMPHOCYTES RELATIVE PERCENT 15 % (BEAKER) (test code = 430) MONOCYTES RELATIVE PERCENT 12 % (BEAKER) (test code = 431) EOSINOPHILS RELATIVE PERCENT 14 % (BEAKER) (test code = 432) BASOPHILS RELATIVE PERCENT 1 % (BEAKER) (test code = 437) NEUTROPHILS ABSOLUTE COUNT 6.42 K/ L 1.78-5.38 H (BEAKER) (test code = 670) LYMPHOCYTES ABSOLUTE COUNT 1.69 K/ L 1.32-3.57 (BEAKER) (test code = 414) MONOCYTES ABSOLUTE COUNT (BEAKER) 1.32 K/ L 0.30-0.82 H (test code = 415) EOSINOPHILS ABSOLUTE COUNT 1.59 K/ L 0.04-0.54 H (BEAKER) (test code = 416) BASOPHILS ABSOLUTE COUNT (BEAKER) 0.12 K/ L 0.01-0.08 H (test code = 417) IMMATURE GRANULOCYTES-RELATIVE 0 % 0-1 PERCENT (BEAKER) (test code = 2801) POCT-GLUCOSE [id number] 20:58:32 Test Item Value Reference Range Interpretation Comments POC-GLUCOSE METER 132 mg/dL 70-110 H : TESTED A T [facility] 6720 (BEAKER) (test code = [facility], 1538) 43591: Web Publisher/Techni mi ID = [id number] for Co Ivelisse [place] POCT-GLUCOSE [id number] 17:29:45 Test Item Value Reference Range Interpretation Comments POC-GLUCOSE METER 189 mg/dL 70-110 H : TESTED A T [facility] 6720 (BEAKER) (test code = [facility], 1538) 59381: Web Publisher/Techni mi ID = [id number] for Ba rrera, Isabel POCT-GLUCOSE [id number] 12:37:37 Test Item Value Reference Range Interpretation Comments POC-GLUCOSE METER 142 mg/dL 70-110 H : TESTED A T [facility] 6720 (BEAKER) (test code = [facility], 1538) 47948: Web Publisher/Techni mi ID = [id number] for Ba rrera, Isabel RAD, CHEST, 1 VIEW, NON [id number] 11:35:00Reason for exam:->chest tubeShould this be performed at the bedside?->Yes [facility] 1950 Sex: MFINAL REPORT RAD, CHEST, 1 VIEW, NON DEPT INDICATION: chest tube COMPARISON: Priorday's exam FINDINGS: Portable frontal view of the chest. IMPRESSION: Support Lines: Left pleural catheter Lungs and pleura: Small left effusion. Bibasilar airspace disease persists. No significant pneumothorax. Heart and mediastinum: Stable contours. Stable surgical changes. Additional findings: None.Signed: Taylor Zaidi MDReport Verified Date/Time: 11/06/2021 11:35:53 Reading Location: [facility] Radiology Reading Room U/S, DRAINAGE, W/ CATH [id number] 10:01:00Discussed with Dr. Johnson for exam:- >Left pleural effusion [facility] : 1950 Sex: MFINAL REPORT PROCEDURE: Chest tube placement Procedural PersonnelAttending physician(s): Connie Spangler physician(s): NoneResident physician(s): NoneAdvanced practice provider(s): None Pre-procedure diagnosis: Recurrent left pleural effusionPost-procedure diagnosis: SameIndication: Recurrent pleural effusionAdditional clinical history: None Complications: No immediate complications. IMPRESSION: Left-sided 8 Burmese chest tube placement. Chest tube connected to water seal. PROCEDURE SUMMARY:- Percutaneous pleural drainage with insertion of indwelling catheter under ultrasound guidance- Additional procedure(s): None PROCEDURE DETAILS: Pre- procedureConsent: Informed consent for the procedure including risks, benefits and alternatives was obtained and time-out was performed prior to the procedure.Preparation: The site was prepared and draped using maximal sterile barrier technique including cutaneous antisepsis. Anesthesia/sedationLevel of anesthesia/sedation: No sedationAnesthesia/sedation administered by: Independent trained observer under attending supervision with continuous monitoring of the patient\\X2019\\s level of consciousness and physiologic statusTotal intra-service sedation time (minutes): NAChest tube placementThe patient was positioned upright. Initial imaging was performed. Local anesthesia was administered. The pleural space was accessed using trocar technique and a drainage catheter was placed. Position of the drainage catheter within the pleural space was confirmed.- Initial imagingfindings: Large left pleural effusion- Drainage catheter placed: 8Fr Argon- External catheter securement: Non-absorbable suture- Post-drainage imaging findings: Partial drainage of the pleural fluid- Ad ditional findings: None ContrastContrast agent: NoneContrast volume (mL): 0 Radiation DoseNone. Ultrasound only. Additional DetailsAdditional description of procedure: NoneEquipment details: NoneSpecimens removed: Aspirated fluid was not sent for analysis.Estimated blood loss (mL): Less than 10Standardized report: [email or web address] AttestationSigner name: Marie Templeton attest that I was present for the entire procedure. I reviewed the stored images and agree with the report as written. Signed: Marie Venegas Verified Date/Time: 11/06/2021 10:01:45 Reading Location: [facility] Radiology Reading Room POCT-GLUCOSE [id number] 08:00:19 Test Item Value Reference Range Interpretation Comments POC-GLUCOSE METER 173 mg/dL 70-110 H : TESTED A T [facility] 6720 (BEAKER) (test code = [facility], 1538) [id number]: Web Publisher/Techni mi ID = [id number] for Isabel Sanders BASIC METABOLIC [id number] 06:01:57 Test Item Value Reference Range Interpretation Comments SODIUM (BEAKER) 132 meq/L 136-145 L (test code = 381) POTASSIUM (BEAKER) 3.9 meq/L 3.5-5.1 (test code = 379) CHLORIDE (BEAKER) 97 meq/L 98-107 L (test code = 382) CO2 (BEAKER) (test 29 meq/L 22-29 code = 355) BLOOD UREA NITROGEN 26 mg/dL 7-21 H (BEAKER) (test code = 354) CREATININE (BEAKER) 0.94 mg/dL 0.57-1.25 (test code = 358) GLUCOSE RANDOM 213 mg/dL 70-105 H (BEAKER) (test code = 652) CALCIUM (BEAKER) 8.9 mg/dL 8.4-10.2 (test code = 697) EGFR (BEAKER) (test 79 mL/min/1.73 ESTIMA REGGIE GFR IS code = 1092) sq m NOT ACCURATE CREATININE CLEARANCE IN PREDICTING GLOMERULAR FILTRATION RATE . ESTIMATED GFR I S NOT APPLICABLE FOR DIALYSIS PATIEN TS. Web Publisher ID - RAUL WPOCT-GLUCOSE [id number] 20:47:44 Test Item Value Reference Range Interpretation Comments POC-GLUCOSE METER 133 mg/dL 70-110 H : [facility] T [facility] 6720 [facility] (test code = [facility], 1538) [address]: Web Publisher/Techni mi ID = [id number] for KIRSTIE VEGA POCT-GLUCOSE [id number] 17:25:54 Test Item Value Reference Range Interpretation Comments POC-GLUCOSE METER 216 mg/dL 70-110 H : TESTED A T [facility] 6720 ([facility]) (test code = [facility], 1538) [address]: Web Publisher/Techni mi ID = [id number] for OR PHEY, LUIS RAD, CHEST, 1 VIEW, NON [id number] 14:14:00Reason for exam:->post chest tubeShould this be performed at the bedside?->Yes [facility] MARCELINO : 1950 Sex: MFINAL REPORT INDICATION: post chest tube COMPARISON: 11/04/2021 TECHNIQUE: Single frontal view of the chest. FINDINGS: Lungs and pleura: Diffuse bilateral interstitial thickening. Decreased left effusion. No pneumothorax.Heart and mediastinum: Normal heart size. Unremarkable mediastinal contours.Osseous structures: No acute abnormality.Other: Partial visualization of graft which overlies the left lower neck. Interval placement of left pleural catheter. IMPRESSION:Slight decreased left effusion. Signed: Taylor Zaidi Verified Date/Time: 11/05/2021 14:14:30 POCT-GLUCOSE [id number] 12:13:31 Test Item Value Reference Range Interpretation Comments POC-GLUCOSE METER 109 mg/dL 70-110 : TESTED A T [facility] 6720 ([facility]) (test code = [place], 1538) [address]: Web Publisher/Techni mi ID = [id number] for OR DUNIAEugenieLUIS U/S, [id number] 11:46:00Laterality?->LeftReason for exam:- >pleural effusionShould this be performed at the bedside?->NoLabs to be Ordered:->Body Fluid Culture (w/Gram Stain, C\\T\\S)Labs to be Ordered:->CytologyLabs to be Ordered:->Glucose+LDH+ProteinLabs to be Ordered:->Cell Count [facility] : 1950 Sex: MFINAL REPORT Exam: Ultrasound guided thoracentesis Clinical History: Left-sided Pleural Effusion Validation Consultant: Renetta Roach PA-C Supervising Physician: José Miguel Johnson MD Consent: Benefits and risks were explained to the patient who gave consent to the procedure. Complication: None Immediate Procedure: The patient was placed in sitting upright position. The left posterior chestwas prepped and draped in usual sterile fashion. 2% lidocaine was used as local anesthetic. Under ultrasound guidance, a thoracentesis catheter was inserted into the pleural cavity. Approximately 1200 cc of clear liborio fluid was aspirated. The catheter was removed. The specimen was sent to the laboratory for further analysis. The patient tolerated the procedure well without any adverse reaction. A STAT chest x-ray was ordered. The patient left the department in stable condition. Impression: Ultrasound guided left-sided thoracentesis. Signed: José Miguel Johnson [facility] CENTEReport Verified Date/Time: 11/05/2021 11:46:50 Reading Location: [address] Ultrasound Reading Room LACTATE DEHYDROGENASE (LDH), BODY [id number] 09:29:24 Test Item Value Reference Range Interpretation Comments LACTATE DEHYDROGENASE FLUID (BEAKER) 189 U/L (test code = 634) Absence of reference range indicates that normals have not been defined.Assay performance has not been validated for this type of specimen.Web Publisher ID - ELIZABETH PROTEIN, BODY [id number] 09:26:27 Test Item Value Reference Range Interpretation Comments PROTEIN FLUID (BEAKER) (test code = 4.3 g/dL 579) Absence of reference range indicates that normals have not been defined.Assay performance has not been validated for this type of specimen.Web Publisher ID - ELIZABETH GLUCOSE, BODY [id number] 09:25:48 Test Item Value Reference Range Interpretation Comments GLUCOSE, BODY FLUID (BEAKER) (test 102 mg/dL code = 1528) Absence of reference range indicates that normals have not been defined.Assay performance has not been validated for this type of specimen.Web Publisher ID - ELIZABETH POCT-GLUCOSE [id number] 08:03:31 Test Item Value Reference Range Interpretation Comments POC-GLUCOSE METER 112 mg/dL 70-110 H : TESTED A T [facility] 6720 (BEAKER) (test code = [place], 1538) [id number]: Web Publisher/Techni mi ID = [id number] for OR LUIS GUILLORY BASIC METABOLIC [id number] 05:47:00 Test Item Value Reference Range Interpretation Comments SODIUM (BEAKER) 132 meq/L 136-145 L (test code = 381) POTASSIUM (BEAKER) 4.4 meq/L 3.5-5.1 (test code = 379) CHLORIDE (BEAKER) 97 meq/L 98-107 L (test code = 382) CO2 (BEAKER) (test 29 meq/L 22-29 code = 355) BLOOD UREA NITROGEN 15 mg/dL 7-21 (BEAKER) (test code = 354) CREATININE (BEAKER) 0.94 mg/dL 0.57-1.25 (test code = 358) GLUCOSE RANDOM 116 mg/dL 70-105 H (BEAKER) (test code = 652) CALCIUM (BEAKER) 9.1 mg/dL 8.4-10.2 (test code = 697) EGFR (BEAKER) (test 79 mL/min/1.73 ESTIMA REGGIE GFR IS code = 1092) sq m NOT ACCURATE CREATININE CLEARANCE IN PREDICTING GLOMERULAR FILTRATION RATE . ESTIMATED GFR I S NOT APPLICABLE FOR DIALYSIS PATIEN TS. Web Publisher ID - PIAYA LCBC W/PLT COUNT & AUTO [id number] 05:26:00 Test Item Value Reference Range Interpretation Comments WHITE BLOOD CELL COUNT (BEAKER) 11.7 K/ L 3.5-10.5 H (test code = 775) RED BLOOD CELL COUNT (BEAKER) 4.64 M/ L 4.63-6.08 (test code = 761) HEMOGLOBIN (BEAKER) (test code = 14.3 GM/DL 13.7-17.5 410) HEMATOCRIT (BEAKER) (test code = 45.2 % 40.1-51.0 411) MEAN CORPUSCULAR VOLUME (BEAKER) 97.4 fL 79.0-92.2 H (test code = 753) MEAN CORPUSCULAR HEMOGLOBIN 30.8 pg 25.7-32.2 (BEAKER) (test code = 751) MEAN CORPUSCULAR HEMOGLOBIN CONC 31.6 GM/DL 32.3-36.5 L (BEAKER) (test code = 752) RED CELL DISTRIBUTION WIDTH 15.7 % 11.6-14.4 H (BEAKER) (test code = 412) PLATELET COUNT (BEAKER) (test 366 K/CU MM 150-450 code = 756) MEAN PLATELET VOLUME (BEAKER) 10.9 fL 9.4-12.4 (test code = 754) NUCLEATED RED BLOOD CELLS 0 /100 WBC 0-0 (BEAKER) (test code = 413) NEUTROPHILS RELATIVE PERCENT 64 % (BEAKER) (test code = 429) LYMPHOCYTES RELATIVE PERCENT 16 % (BEAKER) (test code = 430) MONOCYTES RELATIVE PERCENT 10 % (BEAKER) (test code = 431) EOSINOPHILS RELATIVE PERCENT 9 % (BEAKER) (test code = 432) BASOPHILS RELATIVE PERCENT 1 % (BEAKER) (test code = 437) NEUTROPHILS ABSOLUTE COUNT 7.43 K/ L 1.78-5.38 H (BEAKER) (test code = 670) LYMPHOCYTES ABSOLUTE COUNT 1.81 K/ L 1.32-3.57 (BEAKER) (test code = 414) MONOCYTES ABSOLUTE COUNT (BEAKER) 1.13 K/ L 0.30-0.82 H (test code = 415) EOSINOPHILS ABSOLUTE COUNT 1.10 K/ L 0.04-0.54 H (BEAKER) (test code = 416) BASOPHILS ABSOLUTE COUNT (BEAKER) 0.12 K/ L 0.01-0.08 H (test code = 417) IMMATURE GRANULOCYTES-RELATIVE 1 % 0-1 PERCENT (BEAKER) (test code = 2801) [id number] 05:10:12 Test Item Value Reference Range Interpretation Comments PARTIAL THROMBOPLASTIN TIME 56.1 seconds 22.5-36.0 H (BEAKER) (test code = 760) PROTHROMBIN TIME/[id number] 05:09:09 Test Item Value Reference Range Interpretation Comments PROTIME (BEAKER) 15.3 seconds 11.9-14.2 H (test code = 759) INR (BEAKER) (test 1.23 See_Comment [Automat ed message] code = 370) The system CNS Response generated this result transmitted ref erence range: <=5.90. The reference range was not used to int erpret this result as normal/abnormal . RECOMMENDED COUMADIN/WARFARIN INR THERAPY RANGESSTANDARD DOSE: 2.0 - 3.0 Includes: PROPHYLAXIS for venous thrombosis, systemic embolization; TREATMENT for venous thrombosis and/or pulmonary embolus.HIGH RISK: Target INR is 2.5-3.5 for patients with mechanical heart valves.RAD, CHEST, 1 VIEW, NON [id number] 02:38:00Reason for exam:->shortness of breath [facility] : 1950 Sex: MFINAL REPORT CLINICAL INDICATION: Shortness of breath Comparison: Same date at 1506 hours The cardiomediastinal contours are stable. Central pulmonary vascular congestion and left greater than right parenchymal and left pleural opacities are unchanged. There is no pneumothorax. IMPRESSION: No significant interval change. Signed: Lyn Dyer Verified Date/Time: 11/05/2021 0 2:38:18 ATE DEHYDROGENASE (LDH)2021-11-05 00:06:43 Test Item Value Reference Range Interpretation Comments LACTATE DEHYDROGENASE 940 U/L 125-220 H Specim en slightly (Zeebo) (test code = hemoly zed 635) Web Publisher ID - BSPOCT-GLUCOSE [id number] 21:18:10 Test Item Value Reference Range Interpretation Comments POC-GLUCOSE METER 152 mg/dL 70-110 H : TESTED A T [facility] 6720 (Zeebo) (test code = [place], 1538) [address]: Web Publisher/Techni mi ID = [id number] for Eh Thapa chris BODY FLUID CELL COUNT WITH [id number] 18:36:27 Test Item Value Reference Range Interpretation Comments APPEARANCE FLUID Slightly Hazy Clear A (BEAKER) (test code = 510) COLOR FLUID (BEAKER) Yellow Colorless, Straw A (test code = 511) RBC FLUID (BEAKER) 7000 /cu mm See_Comment H [Automat ed (test code = 513) message] T he system which generated this result transmitted reference range : <=1. The refere nce range was not u sed to interpret th is result as normal/abnormal . ADJUSTED WBC FLUID 2546 /cu mm See_Comment H [Automat ed (BEAKER) (test code message] The system = 1691) which generated this result transmitted reference range : <=5. The refere nce range was not u sed to interpret th is result as normal/abnormal . LINING CELLS 0 /cu mm See_Comment [Automated (BEAKER) (test code message] The system = 1590) which generated this result transmitted reference range : <=1. The refere nce range was not u sed to interpret th is result as normal/abnormal . NEUTROPHILS FLUID 2 % (BEAKER) (test code = 1656) LYMPHS FLUID 58 % (BEAKER) (test code = 488) MONO/MACROPHAGE 17 % FLUID (BEAKER) (test code = 489) EOSINOPHILS FLUID 22 % (BEAKER) (test code = 491) BASO FLUID (BEAKER) 1 % (test code = 492) CONTAINER BODY FLUID EDTA Tube (BEAKER) (test code = 2873) HEMOGLOBIN [id number] 15:55:10 Test Item Value Reference Range Interpretation Comments HEMOGLOBIN A1C 7.1 % See_Comment H [Automated m essage] ELECTROPHORESIS (BEAKER) The system which (test code = 4911) generated this result transmitted ref erence range: <=5.6%. The reference range was not used to int erpret this result as normal/abnormal . "The A1c is measured using a NGSP-certified method. HbA1c value equal to or greater than 6.5% as thediagnosis cutoff for diabetes. An HbA1c value of 5.7- 6.4% indicates increased risk for diabetes (prediabetes)."Web Publisher ID - ADMRAD, CHEST, 1 VIEW, NON [id number] 15:13:00Reason for exam:->s/p thoracentesisShould this be performed at the bedside?->Yes [facility] 1950 Sex: MFINAL REPORT INDICATION: s/p thoracentesis COMPARISON: November 03, 2021 TECHNIQUE: Single frontal view of the chest. FINDINGS: Lungs and pleura: Moderate left effusion. Bilateral airspace opacities concerning for multifocal pneumonia versus multifocal edema. Heart and mediastinum: Normal heart size. Unremarkable mediastinal contours.Osseous structures: No acute abnormality.Other: None. IMPRESSION: Moderate left effusion. Bilateral airspace opacities concerning for multifocal pneumonia versus multifocal edema. Signed: Taylor Zaidi Verified Date/Time: 11/04/2021 15:13:40 Reading Location: [facility] Radiology Reading Room POCT-GLUCOSE [id number] 07:34:41 Test Item Value Reference Range Interpretation Comments POC-GLUCOSE METER 98 mg/dL 70-110 : TESTED A T [facility] 6720 (BEAKER) (test code = [facility], 1538) [address]: Web Publisher/Techni mi ID = [id number] for JEVON VALDEZ T4, [id number] 06:19:26 Test Item Value Reference Range Interpretation Comments FREE T4 (BEAKER) (test code = 655) 1.32 ng/dL 0.70-1.48 Web Publisher ID - YANIRA MURIC [id number] 05:30:24 Test Item Value Reference Range Interpretation Comments URIC ACID (BEAKER) (test code = 4.2 mg/dL 2.6-7.2 773) Web Publisher ID - YANIRA MLACTATE DEHYDROGENASE (LDH)2021-11-04 05:30:23 Test Item Value Reference Range Interpretation Comments LACTATE DEHYDROGENASE (BEAKER) (test 245 U/L 125-220 H code = 635) Web Publisher ID - YANIRA [id number] 05:30:23 Test Item Value Reference Range Interpretation Comments MAGNESIUM (BEAKER) (test code = 2.2 mg/dL 1.6-2.6 627) Web Publisher ID - YANIRA MTSH/FREE T4 IF [id number] 05:22:38 Test Item Value Reference Range Interpretation Comments THYROID STIMULATING HORMONE 0.093 uIU/mL 0.350-4.940 L (BEAKER) (test code = 772) Web Publisher ID - YANIRA MPOCT-P2Y12 PLATELET [id number] 05:12:09 Test Item Value Reference Range Interpretation Comments POC-P2Y12 PLATELET AGG (BEAKER) (test 228 PRU code = 2303) RANGE INFORMATION: PRU reference range is 194-418. Post Drug Results: Lower PRU levels are associated with expected antiplatelet effect. Values may be below the stated reference range above. The post-drug PRU values reported in the Ver[employer]Now P2Y12 package insert are [id number].B-TYPE NATRIURETIC FACTOR (BNP)2021-11-04 04:59:52 Test Item Value Reference Range Interpretation Comments B-TYPE NATRIURETIC PEPTIDE (BEAKER) 446 pg/mL 0-100 H (test code = 700) Web Publisher ID - YANIRA [id number] 04:55:23 Test Item Value Reference Range Interpretation Comments PREALBUMIN (BEAKER) (test code = 586) 8 mg/dL 14-45 L Web Publisher ID - YANIRA MCBC W/PLT COUNT & AUTO [id number] 04:49:28 Test Item Value Reference Range Interpretation Comments WHITE BLOOD CELL COUNT (BEAKER) 10.7 K/ L 3.5-10.5 H (test code = 775) RED BLOOD CELL COUNT (BEAKER) 4.23 M/ L 4.63-6.08 L (test code = 761) HEMOGLOBIN (BEAKER) (test code = 12.9 GM/DL 13.7-17.5 L 410) HEMATOCRIT (BEAKER) (test code = 41.2 % 40.1-51.0 411) MEAN CORPUSCULAR VOLUME (BEAKER) 97.4 fL 79.0-92.2 H (test code = 753) MEAN CORPUSCULAR HEMOGLOBIN 30.5 pg 25.7-32.2 (BEAKER) (test code = 751) MEAN CORPUSCULAR HEMOGLOBIN CONC 31.3 GM/DL 32.3-36.5 L (BEAKER) (test code = 752) RED CELL DISTRIBUTION WIDTH 15.7 % 11.6-14.4 H (BEAKER) (test code = 412) PLATELET COUNT (BEAKER) (test 365 K/CU MM 150-450 code = 756) MEAN PLATELET VOLUME (BEAKER) 10.8 fL 9.4-12.4 (test code = 754) NUCLEATED RED BLOOD CELLS 0 /100 WBC 0-0 (BEAKER) (test code = 413) NEUTROPHILS RELATIVE PERCENT 61 % (BEAKER) (test code = 429) LYMPHOCYTES RELATIVE PERCENT 17 % (BEAKER) (test code = 430) MONOCYTES RELATIVE PERCENT 11 % (BEAKER) (test code = 431) EOSINOPHILS RELATIVE PERCENT 11 % (BEAKER) (test code = 432) BASOPHILS RELATIVE PERCENT 1 % (BEAKER) (test code = 437) NEUTROPHILS ABSOLUTE COUNT 6.50 K/ L 1.78-5.38 H (BEAKER) (test code = 670) LYMPHOCYTES ABSOLUTE COUNT 1.77 K/ L 1.32-3.57 (BEAKER) (test code = 414) MONOCYTES ABSOLUTE COUNT (BEAKER) 1.15 K/ L 0.30-0.82 H (test code = 415) EOSINOPHILS ABSOLUTE COUNT 1.16 K/ L 0.04-0.54 H (BEAKER) (test code = 416) BASOPHILS ABSOLUTE COUNT (BEAKER) 0.11 K/ L 0.01-0.08 H (test code = 417) IMMATURE GRANULOCYTES-RELATIVE 0 % 0-1 PERCENT (BEAKER) (test code = 2801) POCT-GLUCOSE [id number] 20:50:19 Test Item Value Reference Range Interpretation Comments POC-GLUCOSE METER 123 mg/dL 70-110 H : TESTED A T [facility] 6720 (BEAKER) (test code = [place], 1538) [address]: Web Publisher/Techni mi ID = [id number] for Re yes, Sairy BASIC METABOLIC [id number] 19:47:48 Test Item Value Reference Range Interpretation Comments SODIUM (BEAKER) 133 meq/L 136-145 L (test code = 381) POTASSIUM (BEAKER) 4.3 meq/L 3.5-5.1 Specimen slightly (test code = 379) hemolyzed CHLORIDE (BEAKER) 103 meq/L 98-107 (test code = 382) CO2 (BEAKER) (test 24 meq/L 22-29 code = 355) BLOOD UREA NITROGEN 10 mg/dL 7-21 (BEAKER) (test code = 354) CREATININE (BEAKER) 0.74 mg/dL 0.57-1.25 Specimen slightly (test code = 358) hemolyzed GLUCOSE RANDOM 106 mg/dL 70-105 H (BEAKER) (test code = 652) CALCIUM (BEAKER) 8.3 mg/dL 8.4-10.2 L (test code = 697) EGFR (BEAKER) (test 104 mL/min/1.73 ESTIM ATED GFR IS code = 1092) sq m NOT ACCURATE CREATININE CLEARANCE IN PREDICTING GLOMERULAR FILTRATION RATE . ESTIMATED GFR I S NOT APPLICABLE FOR DIALYSIS PATIEN TS. Web Publisher ID - ADMINOperator ID - ADMINOperator ID - [id number] 19:01:20 Test Item Value Reference Range Interpretation Comments PHOSPHORUS (BEAKER) (test code = 2.6 mg/dL 2.3-4.7 604) Web Publisher ID - ADMINHEPATIC FUNCTION [id number] 19:01:20 Test Item Value Reference Range Interpretation Comments TOTAL PROTEIN (BEAKER) (test code = 7.7 gm/dL 6.0-8.3 770) ALBUMIN (BEAKER) (test code = 1145) 3.3 g/dL 3.5-5.0 L BILIRUBIN TOTAL (BEAKER) (test code 1.1 mg/dL 0.2-1.2 = 377) BILIRUBIN DIRECT (BEAKER) (test 0.7 mg/dL 0.1-0.5 H code = 706) ALKALINE PHOSPHATASE (BEAKER) (test 187 U/L 40-150 H code = 346) AST (SGOT) (BEAKER) (test code = 16 U/L 5-34 353) ALT (SGPT) (BEAKER) (test code = 11 U/L 6-55 347) Web Publisher ID - ADMINBASIC METABOLIC [id number] 19:01:19 Test Item Value Reference Range Interpretation Comments SODIUM (BEAKER) 133 meq/L 136-145 L (test code = 381) POTASSIUM (BEAKER) 4.6 meq/L 3.5-5.1 (test code = 379) CHLORIDE (BEAKER) 100 meq/L 98-107 (test code = 382) CO2 (BEAKER) (test 26 meq/L 22-29 code = 355) BLOOD UREA NITROGEN 10 mg/dL 7-21 (BEAKER) (test code = 354) CREATININE (BEAKER) 0.83 mg/dL 0.57-1.25 (test code = 358) GLUCOSE RANDOM 112 mg/dL 70-105 H (BEAKER) (test code = 652) CALCIUM (BEAKER) 9.3 mg/dL 8.4-10.2 (test code = 697) EGFR (BEAKER) (test 91 mL/min/1.73 ESTIMA REGGIE GFR IS code = 1092) sq m NOT ACCURATE CREATININE CLEARANCE IN PREDICTING GLOMERULAR FILTRATION RATE . ESTIMATED GFR I S NOT APPLICABLE FOR DIALYSIS PATIEN TS. Web Publisher ID - [id number] 19:01:19 Test Item Value Reference Range Interpretation Comments MAGNESIUM (BEAKER) (test code = 2.1 mg/dL 1.6-2.6 627) Web Publisher ID - ADMINLACTATE DEHYDROGENASE (LDH)2021-11-03 18:57:58 Test Item Value Reference Range Interpretation Comments LACTATE DEHYDROGENASE (BEAKER) (test 191 U/L 125-220 code = 635) Web Publisher ID - ADMINCBC W/PLT COUNT & AUTO [id number] 18:46:24 Test Item Value Reference Range Interpretation Comments WHITE BLOOD CELL COUNT (BEAKER) 10.5 K/ L 3.5-10.5 (test code = 775) RED BLOOD CELL COUNT (BEAKER) 4.20 M/ L 4.63-6.08 L (test code = 761) HEMOGLOBIN (BEAKER) (test code = 13.0 GM/DL 13.7-17.5 L 410) HEMATOCRIT (BEAKER) (test code = 40.1 % 40.1-51.0 411) MEAN CORPUSCULAR VOLUME (BEAKER) 95.5 fL 79.0-92.2 H (test code = 753) MEAN CORPUSCULAR HEMOGLOBIN 31.0 pg 25.7-32.2 (BEAKER) (test code = 751) MEAN CORPUSCULAR HEMOGLOBIN CONC 32.4 GM/DL 32.3-36.5 (BEAKER) (test code = 752) RED CELL DISTRIBUTION WIDTH 15.6 % 11.6-14.4 H (BEAKER) (test code = 412) PLATELET COUNT (BEAKER) (test 425 K/CU MM 150-450 code = 756) MEAN PLATELET VOLUME (BEAKER) 10.7 fL 9.4-12.4 (test code = 754) NUCLEATED RED BLOOD CELLS 0 /100 WBC 0-0 (BEAKER) (test code = 413) NEUTROPHILS RELATIVE PERCENT 56 % (BEAKER) (test code = 429) LYMPHOCYTES RELATIVE PERCENT 21 % (BEAKER) (test code = 430) MONOCYTES RELATIVE PERCENT 11 % (BEAKER) (test code = 431) EOSINOPHILS RELATIVE PERCENT 10 % (BEAKER) (test code = 432) BASOPHILS RELATIVE PERCENT 1 % (BEAKER) (test code = 437) NEUTROPHILS ABSOLUTE COUNT 5.90 K/ L 1.78-5.38 H (BEAKER) (test code = 670) LYMPHOCYTES ABSOLUTE COUNT 2.22 K/ L 1.32-3.57 (BEAKER) (test code = 414) MONOCYTES ABSOLUTE COUNT (BEAKER) 1.18 K/ L 0.30-0.82 H (test code = 415) EOSINOPHILS ABSOLUTE COUNT 1.01 K/ L 0.04-0.54 H (BEAKER) (test code = 416) BASOPHILS ABSOLUTE COUNT (BEAKER) 0.10 K/ L 0.01-0.08 H (test code = 417) IMMATURE GRANULOCYTES-RELATIVE 1 % 0-1 PERCENT (BEAKER) (test code = 2801) PROTHROMBIN [id number]/[id number] 18:36:37 Test Item Value Reference Range Interpretation Comments PROTIME (BEAKER) 15.3 seconds 11.9-14.2 H (test code = 759) INR (BEAKER) (test 1.23 See_Comment [Automat ed message] code = 370) The system CNS Response generated this result transmitted ref erence range: <=5.90. The reference range was not used to int erpret this result as normal/abnormal . RECOMMENDED COUMADIN/WARFARIN INR THERAPY RANGESSTANDARD DOSE: 2.0 - 3.0 Includes: PROPHYLAXIS for venous thrombosis, systemic embolization; TREATMENT for venous thrombosis and/or pulmonary embolus.HIGH RISK: Target INR is 2.5-3.5 for patients with mechanical heart valves.SARS-COV2/RT-PCR ([facility]) 2021-11-03 17:33:38 Test Item Value Reference Range Interpretation Comments SARS-COV2/RT-PCR Negative Negative The SARS-Co V-2 target (test code = nucleic acids a re not 6331103) detected in thi s specimen. Negative result s do not preclude SARS-C oV-2 infection and s hould not be used as the joe e basis for patient managem ent decisions. Nega tive results must be combine d with clinical observ ations, patient history , and epidemiological information. A false negativ e result may occur if a spec imen is improperly carmen ected, transported or handled. This SARS CoV-2 test is a rapid, real-time RT-PC R test intended for th e qualitative detection of nu cleic acid from SARS-CoV-2 in a nasopharyngeal swab specimen collected from individuals suspected of CO VID-19 by their healthcar e provider. This test has been authorized by FDA under an EUA for use by authorized laboratories. This test is only authorized for the duration of the declaration that circumstances exist justifying the authorization of emergency use of in vitro diagnostic tests for detection and/or diagnosis of COVID-19 under Section 564(b)(1) of the Federal Food, Drug and Cosmetic Act, 21 U.S.C. 360bbb-3(b)(1), unless the authorization is terminated or revoked sooner. Fact Sheet for Healthcare Providers: https://www.[employer] m/Documents/Xpert%20Xpress%20SARS%20CoV-2/Fact%20Sheets/302-6916%20WJEG-DNO-6%20 HEALTHCARE%20PROVIDERS%20FACT%20SHEET.pdf Fact Sheet for Healthcare Patients: https://www.[employer]/Documents/Xpert%20Xp ress%20SARS%20CoV-2/Fact%20Sheets/302-3801%50JVUE-IJB-8%20PATIENT%20FACT%20SHEET .pdfRAD, CHEST, 2 [id number] 13:53:00Reason for Exam:->pleural effusion [facility] : 1950 Sex: MFINAL REPORT HISTORY: Pleural effusion COMPARISON: No comparison chest imaging FINDINGS: There is a moderate left pleural effusion, obscuring lower half of the left hemithorax. There are increased interstitial markings in the lungs bilaterally, most likely reflecting interstitial edema. Atypical pneumonitis cannot be excluded. No pneumothorax. The cardiac shadow is partially obscured. The thoracic aorta is calcified. No skeletal abnormalities are visualized. A partially imaged stent is noted in the left neck. IMPRESSION: 1. Moderate left pleural effusion. 2. Interstitial pulmonaryedema. Signed: Carmen Reynoso MDReport Verified Date/Time: 11/03/2021 13:53:54 [id number] 15:01:03 Test Item Value Reference Range Interpretation Comments POC-CREATININE 0.9 mg/dL 0.6-1.3 : TESTED AT [facility] ([facility]) (test 67 [facility] code = 1859) [place], [address]: Web Publisher/Techni mi ID = [id number] for Shaye Darby POC-EGFR ([facility]) 83 mL/min/1.73M2 (test code = 1860) CT, CTA AAA, W/ YUNG.EXT.[id number] 15:00:00Anesthesia:->None [facility] : 1950 Sex: MFINAL REPORT CT ANGIOGRAM ABDOMEN AND PELVIS WITH BILATERAL RUNOFF STUDIES Historyprovided: Claudication Comparison studies: None TECHNIQUE: Noncontrast imaging was initially performed through the abdomen and pelvis. During rapid IV contrast administration, helical CT imaging was performed from the diaphragm through the feet. 3-D reformats and MIPS were provided. FINDINGS: NONVASCULAR FINDINGS: There is a large pleural effusion on the left which opacifies the entirety of the visualized portion of the left hemithorax. Mildly coarsened interstitial markings are visualized throughout the right lung base. No right pleural effusion. Heart size is normal. Normal-appearing liver. Only a tiny piece of the splenic tissue is visualized. Please correlate with any history of prior splenectomy. Normal-appearing pancreas. Gallbladder is small in size. Kidneys are normal in size with no massor hydronephrosis. No dilated bowel loops. No pelvic mass, pelvic fluid collection, or pelvic inflammation. VASCULAR FINDINGS: The abdominal aorta shows no evidence of aneurysm. There is minimal dilatation of the lower abdominal aorta to a maximal diameter of 2.4 cm above the aortic bifurcation. Widely patent celiac, SMA, renal arteries, and EDSON. The right common iliac artery shows atherosclerotic change but no evidence of aneurysm or hemodynamically significant stenosis. The left common iliac artery shows moderate atherosclerotic change as well, without evidence of aneurysm or hemodynamically significant stenosis. Atherosclerotic disease is present in the proximal external iliac arteries bilaterally, with a maximal degree of 50% luminal compromise on each side proximally. Continuous flow to bothcommon femoral arteries. Evaluation of the right lower extremity shows multifocal plaque along the course of the SFA, with significant focal stenosis of the right mid SFA but continuous straight line flow. Right popliteal artery is patent with diameter of 4.3 mm. There is continuous flow through the right anterior tibial and peroneal arteries. The right posterior tibial artery is occluded at the mid calf level and reconstitutes from a collateral branch off the peroneal artery just above the ankle. Only the posterior tibial artery is visualized patent at the level of the foot. Evaluation of the leftlower extremity shows chronic occlusion of the proximal superficial femoral artery, with reconstitution of the SFA at the mid thigh level by profunda collaterals. The left popliteal artery is patent yenny continuous straight line fashion with a diameter of 4.3 mm. Anterior tibial and peroneal arteries are patent in a continuous straight line fashion within the left calf, with the posterior tibial artery occluded at its mid segment and reconstituting just above the ankle from a peroneal collateral. Two- vessel runoff patent to the left foot via anterior tibial and posterior tibial arteries. IMPRESSION: Large left pleural effusion. Only minimal splenic tissue visualized. No evidence of stenosis or aneurysm within the abdominal aorta. Atherosclerotic disease within the common and external iliac arteries without hemodynamically significant stenosis. Multifocal plaque within patent right SFA with satisfactory runoff demonstrated. Occluded left proximal SFA with collateral reconstitution of the mid SFA, and satisfactory runoff flow. COMMENT: This exam was performed according to our departmental dose-optimization program, which includes automated exposure control, adjustment of the mA and/or kV according to patient size and/or use of iterative reconstruction technique. Signed: Eddie Bruno MDReport Verified Date/Time: 10/27/2021 15:00:58 Reading Location: [facility] Radiology Reading Room [facility] [id number] 04:35:18 Test Item Value Reference Range Interpretation Comments SODIUM (BEAKER) 138 meq/L 136-145 (test code = 381) POTASSIUM (BEAKER) 4.6 meq/L 3.5-5.1 (test code = 379) CHLORIDE (BEAKER) 108 meq/L 98-107 H (test code = 382) CO2 (BEAKER) (test 21 meq/L 22-29 L code = 355) BLOOD UREA NITROGEN 13 mg/dL 7-21 (BEAKER) (test code = 354) CREATININE (BEAKER) 0.76 mg/dL 0.57-1.25 (test code = 358) GLUCOSE RANDOM 116 mg/dL 70-105 H (BEAKER) (test code = 652) CALCIUM (BEAKER) 9.3 mg/dL 8.4-10.2 (test code = 697) EGFR (BEAKER) (test 101 mL/min/1.73 ESTIM ATED GFR IS code = 1092) sq m NOT ACCURATE CREATININE CLEARANCE IN PREDICTING GLOMERULAR FILTRATION RATE . ESTIMATED GFR I S NOT APPLICABLE FOR DIALYSIS PATIEN TS. Web Publisher ID - PIAYA LCBC W/PLT COUNT & AUTO [id number] 04:27:29 Test Item Value Reference Range Interpretation Comments WHITE BLOOD CELL COUNT (BEAKER) 12.4 K/ L 3.5-10.5 H (test code = 775) RED BLOOD CELL COUNT (BEAKER) 4.52 M/ L 4.63-6.08 L (test code = 761) HEMOGLOBIN (BEAKER) (test code = 14.1 GM/DL 13.7-17.5 410) HEMATOCRIT (BEAKER) (test code = 43.8 % 40.1-51.0 411) MEAN CORPUSCULAR VOLUME (BEAKER) 96.9 fL 79.0-92.2 H (test code = 753) MEAN CORPUSCULAR HEMOGLOBIN 31.2 pg 25.7-32.2 (BEAKER) (test code = 751) MEAN CORPUSCULAR HEMOGLOBIN CONC 32.2 GM/DL 32.3-36.5 L (BEAKER) (test code = 752) RED CELL DISTRIBUTION WIDTH 15.5 % 11.6-14.4 H (BEAKER) (test code = 412) PLATELET COUNT (BEAKER) (test 337 K/CU MM 150-450 code = 756) MEAN PLATELET VOLUME (BEAKER) 11.0 fL 9.4-12.4 (test code = 754) NUCLEATED RED BLOOD CELLS 0 /100 WBC 0-0 (BEAKER) (test code = 413) NEUTROPHILS RELATIVE PERCENT 67 % (BEAKER) (test code = 429) LYMPHOCYTES RELATIVE PERCENT 14 % (BEAKER) (test code = 430) MONOCYTES RELATIVE PERCENT 10 % (BEAKER) (test code = 431) EOSINOPHILS RELATIVE PERCENT 8 % (BEAKER) (test code = 432) BASOPHILS RELATIVE PERCENT 1 % (BEAKER) (test code = 437) NEUTROPHILS ABSOLUTE COUNT 8.34 K/ L 1.78-5.38 H (BEAKER) (test code = 670) LYMPHOCYTES ABSOLUTE COUNT 1.70 K/ L 1.32-3.57 (BEAKER) (test code = 414) MONOCYTES ABSOLUTE COUNT (BEAKER) 1.27 K/ L 0.30-0.82 H (test code = 415) EOSINOPHILS ABSOLUTE COUNT 0.96 K/ L 0.04-0.54 H (BEAKER) (test code = 416) BASOPHILS ABSOLUTE COUNT (BEAKER) 0.14 K/ L 0.01-0.08 H (test code = 417) IMMATURE GRANULOCYTES-RELATIVE 0 % 0-1 PERCENT (BEAKER) (test code = 2801) [id number] 15:23:47 Test Item Value Reference Range Interpretation Comments ACTIVATED CLOTTING TIME 142 sec : 74 -137 seconds, (BEAKER) (test code = [facility] ne: TESTED AT 441) [address], [address]: Web Publisher/Techni mi ID = [id number] for MINDY SOARES, MINI PLATELET AGGREGATION: FUNCTION [id number] 15:18:06 Test Item Value Reference Range Interpretation Comments [id number] Riddhi Shearer, (BEAKER) (test code = M.D. 2622) PLATELET COUNT AGG 348 K/CU MM 150-450 (BEAKER) (test code = 2656) ADP (BEAKER) (test code 9 % 62-100 L = 4654) PLATELET RICH 264 k/cu mm 200-300 PLASMA(BEAKER) (test code = 2134) PLATELET FUNCTION SCREEN Decreased aggregation INTERPRETATION (BEAKER) with ADP which (test code = 4655) indicates platelet dysfunction that may be due to medication effect, uremia, or other platelet function disorders. Clinical correlation is required. Platelet Function Screen results may be falsely low with platelet counts<75,000/cu mm.Web Publisher ID- [id number] 13:55:15 Test Item Value Reference Range Interpretation Comments ACTIVATED CLOTTING TIME 153 sec : 74 -137 seconds, (BEAKER) (test code = [place] ne: TESTED AT 441) [address], [address]: Web Publisher/Techni mi ID = [id number] for MINDY SOARES, ANAND POCT-GLUCOSE [id number] 11:45:58 Test Item Value Reference Range Interpretation Comments POC-GLUCOSE METER 95 mg/dL 70-110 : TESTED A T [facility] [address] ([place]) (test code = [facility] R [facility], 1538) [address]: Web Publisher/Techni mi ID = [id number] for Go Aloah [id number] 10:08:31 Test Item Value Reference Range Interpretation Comments ACTIVATED CLOTTING TIME 263 sec : 74 -137 seconds, (SEDRICK) (test code = [place] ne: TESTED AT 441) [facility] [address] [facility], [address]: Web Publisher/Techni mi ID = [id number] for KESHA BELL CT, CAROTID, [id number] 10:15:00Intracranial extracranial \\T\\ archUnlisted Reason for Exam - Click Yes and Enter Reason Below->YesUnlisted Reason for Exam->[facility]ilateral [facility] 1950 Sex: MFINAL REPORT CT, CAROTID, ANGIO, CT, CTANGIO BRAINBRAIN CT WITHOUT CONTRAST INDICATION: Unlisted Reason for ExamBilateral carotid stenosis COMPARISON: None TECHNIQUE:Rapid acquisition spiral images were obtained between the aortic arch and the cranial vertex during intravenous contrast infusion to reconstruct axial images and angiographic 3D maximum intensity projections (MIP). 3-D volumetric reformatted images were created at a dedicated workstation, but were nondiagnostic. Precontrast images of the brain were also obtained. Stenosis evaluation reported in compliance with NASCET criteria. DOSE REDUCTION: Dose modulation, iterative reconstruction, and/or weight-based adjustment of the mA/kV was utilized to reduce the radiation dose to as low as reasonably achievable. FINDINGS:Limited by motion artifact. CT BRAIN:Moderate global cerebral volume loss is present. Remote ischemic changesare noted in the right frontal opercular region. No recent infarct or hemorrhage is noted. The midline is normally positioned. There is mild ex vacuo dilation of the ventricular CSF spaces. Osseous structures are intact. Fluid and mucosal thickening are noted in the left maxillary chamber. CTA BRAIN:The right internal carotid artery terminus and middle cerebral artery are perfused via intact communicating vessels. Circumferential calcification affects the left cavernous ICA without flow limitation. Otherwise, no major intracranial branch occlusion. Posterior circulation is intact. Venous structuresopacify normally for bolus timing. CTA NECK:Arch anatomy is conventional. There is outward bowing ofthe lateral aortic arch, nonspecific and without ulceration. Great vessel calibers are within normallimits. There is no origin stenosis. Atherosclerotic disease is present bilaterally the bifurcations, with approximately 50% narrowing on the left and complete occlusion on the right. Vertebral arteries are patent and codominant. Nonvascular findings:Degenerative changes are present throughout the cervical spine. A mixed cystic and solid lesion with calcification centrally is present in the right thyroid lobe, measuring up to 2.7 cm in greatest transverse dimension. No discernible adenopathy within the limits of arterial phase imaging. IMPRESSION:Complete occlusion of the right carotid artery at the origin. Approximately 50% narrowing on the left due to atherosclerotic disease although evaluation is Limited by motion artifact. Right middle cerebral artery is perfused via intact communicating vessels. No major branch occlusion in the intracranial circulation. Paranasal sinus disease. Mixed attenuation lesion in the right thyroid lobe measuring up to 2.7 cm for which sonographic follow-up is advised. Signed: JR Arthur Robert MDReport Verified Date/Time: 08/28/2021 10:15:07 Reading Location: [address] Neuro Reading Room [facility], VIGNESH [id number] 10:15:00Unlisted Reason for Exam - Click Yes and Enter Reason Below->YesUnlisted Reason for Exam->Intracranial extracranial \\T\\ arch[facility]: [facility] : 1950 Sex: MFINAL REPORT CT, CAROTID, ANGIO, CT, CTANGIO BRAINBRAIN CT WITHOUT CONTRAST INDICATION: Unlisted Reason for ExamBilateral carotid stenosis COMPARISON: None TECHNIQUE:Rapid acquisition spiral images were obtained between the aortic arch and the cranial vertex during intravenous contrast infusion to reconstruct axial images and angiographic 3D maximum intensity projections (MIP). 3-D volumetric reformatted images were created at a dedicated workstation, but were nondiagnostic. Precontrast images of the brain were also obtained. Stenosis evaluation reported in compliance with NASCET criteria. DOSE REDUCTION: Dose modulation, iterative reconstruction, and/or weight-based adjustment of the mA/kV was utilized to reduce the radiation dose to as low as reasonably achievable. FINDINGS:Limited by motion artifact. CT BRAIN:Moderate global cerebral volume loss is present. Remote ischemic changesare noted in the right frontal opercular region. No recent infarct or hemorrhage is noted. The midline is normally positioned. There is mild ex vacuo dilation of the ventricular CSF spaces. Osseous structures are intact. Fluid and mucosal thickening are noted in the left maxillary chamber. CTA BRAIN:The right internal carotid artery terminus and middle cerebral artery are perfused via intact communicating vessels. Circumferential calcification affects the left cavernous ICA without flow limitation. Otherwise, no major intracranial branch occlusion. Posterior circulation is intact. Venous structuresopacify normally for bolus timing. CTA NECK:Arch anatomy is conventional. There is outward bowing ofthe lateral aortic arch, nonspecific and without ulceration. Great vessel calibers are within normallimits. There is no origin stenosis. Atherosclerotic disease is present bilaterally the bifurcations, with approximately 50% narrowing on the left and complete occlusion on the right. Vertebral arteries are patent and codominant. Nonvascular findings:Degenerative changes are present throughout the cervical spine. A mixed cystic and solid lesion with calcification centrally is present in the right thyroid lobe, measuring up to 2.7 cm in greatest transverse dimension. No discernible adenopathy within the limits of arterial phase imaging. IMPRESSION:Complete occlusion of the right carotid artery at the origin. Approximately 50% narrowing on the left due to atherosclerotic disease although evaluation is Limited by motion artifact. Right middle cerebral artery is perfused via intact communicating vessels. No major branch occlusion in the intracranial circulation. Paranasal sinus disease. Mixed attenuation lesion in the right thyroid lobe measuring up to 2.7 cm for which sonographic follow-up is advised. Signed: JR Arthur Robert MDReport Verified Date/Time: 08/28/2021 10:15:07 Reading Location: [address] Neuro Reading Room -[id number] 09:33:20 Test Item Value Reference Range Interpretation Comments POC-CREATININE 0.9 mg/dL 0.6-1.3 : TESTED AT [facility] 67[address] ([facility]) ([place], [address]: code = 1859) Web Publisher/Techni mi ID = [id number] for KESHAV OWUSUA ()BARBARA POC-EGFR ([facility]) Insufficie nt clinical data (test code = 1860) to calcul ate estimated GFR XR CHEST 1 [id number] 18:59:54Findings and Impression: ?Streaky opacities and unsharpness of thepulmonary vessels in the right lower lobe and right perihilar region arenonspecific and may represent degree of interstitial edema and a telectasis.Atypical infection can have similar appearance. No pleural effusion orpneumothorax. Heartsize is normal. Mild to moderate aortic archcalcifications. No acute osseous abnormality. PORTABLE CHEST RADIOGRAPH History: Surgery Comparison: None available TECHNIQUE: AP view of the chest. [facility], Radiant Results Inft User - 02/14/2021 2:00 PM CDTPORTABLE CHEST RADIOGRAPHHistory: Surgery Comparison:None availableTECHNIQUE: AP view of the chest.IMPRESSIONFindings and Impression: Streaky opacities and unsharpness of thepulmonary vessels in the right lower lobe and right perihilar region arenonspecific and may represent degree of interstitial edema and atelectasis.Atypical infection can have similar appearance. No pleural effusion orpneumothorax. Heart size is normal. Mild to moderate aortic archca lcifications. No acute osseous abnormality.[facility] TexasMR KNEE RIGHT WO [id number] 15:17:44HISTORY: Chronic right knee pain. TECHNIQUE: MR imaging of the right knee was done in multiple projec tionsusing1.5T MR unit and standard protocol. FINDINGS: BONE AND JOINT: Large knee joint effusion noted withthickened/hypertrophied synovium as well as debris suspected in the jointfluid. Irregular shaped small size Loomis's cyst is visualized. Poplitealbursa is also fluid distended. Some of the fluid from Loomis's cyst as wellas popliteal bursa appears to be leaking onto the surface of medial andlateral gastrocnemius. Deformity in the posterior lateral tibial plateau, approximately 2 x 1 cmin size noted which could be secondary to remote trauma. Mild, up to gradeIII chondromalacia detected in both medial and lateral compartments of theknee joint as well as in the apex of the patella and the lateralpatellarfacet. Small amount of calcium deposition noted in the cartilage lining ofthe dorsal lateraltibial plateau at the site of bone deformity. Stress- induced marrow edema is seen in the peripheral medial tibial condyleas well as the central intercondylar portions of the tibia. Interstitialedema also seen involving small dorsal portion of the distal vastusmedialis muscle. MENISCI: Medial meniscus is partially extruded out of the joint with jointspace narrowing and showed severe diffuse degeneration as well as severalcomplex shaped displaced tears involving large portions of the body andposteriorhorn as well as anterior horn. Lateral meniscus showed intrasubstance degenerative signal with slightlydisplaced irregular shaped tear in the posterior horn as well asnondisplaced degenerative tear in the anterior horn. LIGAMENTS AND TENDONS: High riding patella NAHOMY noted. Patellar tendon,quadriceps complex, cruciate ligaments and collateral ligaments are intact. CONCLUSIONS:1. Mild changes of tricompartment degenerative arthritis of right kneejoint with moderate knee joint effusion, hypertrophied synovial lining ofthe entire joint, stress-induced marrow edema in the intercondylar portionof the tibia and peripheral medial tibial condyle and focal areas ofcalcification in the cartilage lining the l ateral knee joint.2. Multiple complex shaped tears involving entire medial meniscus,posterior horn as well as anterior horn of the lateral meniscus.3. Remote trauma suspected with 2 x 1 cm size deformity in the dorsallateral tibial plateau. [facility], Radiant Results Inft User - 02/11/2021 10:18 AM CDTHISTORY: Chronic right knee pain.TECHNIQUE: MR imaging of the right knee was done in multiple projectionsusing1.5T MR unit and standard protocol.FINDINGS: BONE AND JOINT: Large knee joint effusion noted withthickened/hypertrophied synovium as well as debris suspected in the jointfluid. Irregular shaped small size Loomis's cyst is visualized. Poplitealbursa is also fluid distended. Some of the fluid from Loomis's cyst as wellas popliteal bursa appears to be leaking onto the surface of medial andlateral gastrocnemius.Deformity in the posterior lateral tibial plateau, approximately 2 x 1 cmin size noted which could be secondary to remote trauma. Mild, up to gradeIII chondromalacia detected in both medial and lateral compartments of theknee joint as well as in the apex of the patella and the lateral patellarfacet. Small amount of calcium deposition noted in the cartilage lining ofthe dorsal lateral tibial plateau at the site of bone deformity.Stress-induced marrow edema is seen in the peripheral medial tibial condyleas well as the central intercondylar portions of the tibia. Interstitialedema also seen involving small dorsal portion of the distal vastusmedialis muscle.MENISCI: Medial meniscus is partially extruded out of the joint with jointspace narrowing and showed severe diffuse degeneration as wellas severalcomplex shaped displaced tears involving large portions of the body andposterior horn as well as anterior horn.Lateral meniscus showed intrasubstance degenerative signal with slightlydisplaced irregular shaped tear in the posterior horn as well asnondisplaced degenerative tear in the anterior horn.LIGAMENTS AND TENDONS: High riding patella NAHOMY noted. Patellar tendon,quadriceps complex, cruciate ligaments and collateral ligaments are intact.CONCLUSIONS:1. Mild changes of tricompartment degenerative arthritis of right kneejoint with moderate knee joint effusion, hypertrophied synovial lining ofthe entire joint, stress-induced marrow edema in the intercondylar portionof the tibia and peripheral medial tibial condyle and focal areas ofcalcification in the cartilage lining the lateral knee joint.2. Multiple complex shaped tears involving entire medial meniscus,posterior horn as well as anterior horn of the lateral meniscus.3. Remote trauma suspected with 2 x 1 cm size deformity in the dorsallateral tibial plateau.[facility] [id number] 15:00:17HISTORY: ?Pain. FINDINGS: Weightbearing AP view of both knee joints, oblique and lateralviews of right knee joint are obtained and compared with 08/08/2020 study. No acute fracture or dislocation detected. Moderate right knee jointeffusion noted with calcium deposition disease in the meniscalfibrocartilage of both medial and lateral menisci. Faint calcification alsosuspected in the cartilage lining offemoral/tibial condyles. Nosignificant degenerative changes are seen in the articular edges of thebones. Incidental note made of atherosclerosis with calcification in distalSFA/popliteal/proximal runoff arteries. CONCLUSIONS: CPPD disease with calcification in meniscal cartilage and inthe cartilage lining of the bones of the right knee with moderate rightknee joint effusion. [facility], Radiant Results Inft User - 02/06/2021 10:01 AM CDTHISTORY: Pain.FINDINGS: Weightbearing AP view of both knee joints, oblique and lateralviews of right knee joint are obtained and compared with 08/08/2020 study.No acute fracture or dislocation detected. Moderate right knee jointeffusion noted with calcium deposition disease in the meniscalfibrocartilage of both medial and lateral menisci. Faint calcification alsosuspected in the cartilage lining of femoral/tibial condyles. Nosignificant degenerative changes are seen in the articular edges of thebones. Incidental note made of atherosclerosis with calcification in distalSFA/popliteal/proximal runoff arteries.CONCLUSIONS: CPPD disease with calcification in meniscal cartil age and inthe cartilage lining of the bones of the right knee with moderate rightknee joint effusion.[facility]
[2023-06-21 08:48] LABS: Absolute Lymphocytes (CBC) 1.9 K/uL (0.7-4.9); Hematocrit 51.9 % (39.6-49.0); Lymphocytes % 15.2 % (15.3-44.8); MCV 94.2 fL (80-100); MPV 9.8 fL (7.6-11.3); Platelets 378 thou/uL (152-406); RBC Red Blood Cell Count 5.51 M/uL (4.33-5.43)
[2023-06-21] MEDS ORDERED: ONDANSETRON 4 MG/2 ML VIAL ONE (08:54)
[2023-06-21] MEDS ORDERED: NA CHLORIDE 0.9% 1,000 ML ONE ×3 (08:54→23:54)
[2023-06-21] MEDS ORDERED: FAMOTIDINE 20 MG/2 ML VIAL IV ONE (08:54)
[2023-06-21 09:06] LABS: Albumin 4.3 g/dL (3.4-5.0); Bilirubin Total 1.3 mg/dL (0.2-1.0); Potassium 4.2 mEq/L (3.5-5.1); Protein, Total 9.1 g/dL (6.4-8.2)
--- NOTE | 2023-06-21 09:32 | ER ---
Nurse's Notes [facility] Name: Tyler Jay Age: 72 yrs Sex: Male : 1950 Arrival Date: 06/21/2023 Time: 08:22 Bed 19 Private MD: Mo Coelho Diagnosis: Acute kidney failure, unspecified;Dehydration Presentation: 06/21 08:38 Chief complaint: Patient states: N/V/D for 24 hours. Coronavirus screen: Client denies ll1 travel out of the [place] in the last 14 days. diarrhea, fatigue, nausea, vomiting. Client presents with at least one sign or symptom that may indicate coronavirus-19. Standard/surgical mask placed on the client. Ebola Screen: Patient denies travel to an Ebola-affected area in the 21 days before illness onset. Initial Sepsis Screen: Does the patient meet any 2 criteria? No. Patient's initial sepsis screen is negative. Does the patient have a suspected source of infection? Yes: Other: n/v/d. Risk Assessment: Do you want to hurt yourself or someone else? Patient reports no desire to harm self or others. Onset of symptoms was June 20, 2023. 08:38 Method Of Arrival: Wheelchair ll1 08:38 Acuity: ROBBI 3 ll1 Triage Assessment: 08:39 General: Appears uncomfortable, Behavior is cooperative, appropriate for age. Pain: ll1 Denies pain. GI: Reports cramping, diarrhea, nausea, vomiting. 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 - Social history:: Smoking status: Patient/guardian denies using tobacco. Screenin:39 [facility] ED Fall Risk Assessment (Adult) Impaired Gait Yes (1 pt) Mobility Assist ll1 Device Used Yes (1 pt) Score/Fall Risk Level 0 - 2 = Low Risk Oriented to surroundings, Maintained a safe environment, Educated pt \T\ family on fall prevention, incl call for assistance when getting out of bed, Hourly rounding (assess needs \T\ fall precautionary measures) done. Abuse screen: Denies threats or abuse. Nutritional screening: No deficits noted. Tuberculosis screening: No symptoms or risk factors identified. Assessment: 09:00 General: Appears in no apparent distress. uncomfortable, Behavior is calm, cooperative, ll1 appropriate for age. Pain: Complains of pain in abdomen. Neuro: Level of Consciousness is awake, alert, obeys commands, Oriented to person, place, time, situation. Cardiovascular: Capillary refill < 3 seconds Patient's skin is warm and dry. Respiratory: Airway is patent Respiratory effort is even, unlabored, Respiratory pattern is regular, symmetrical. GI: Abdomen is round non-distended, Reports intolerance of fluids, intolerance of food, nausea, vomiting. Derm: Skin with poor turgor Skin is pink, warm \T\ dry. Musculoskeletal: Circulation, motion, and sensation intact. Range of motion: intact in all extremities. 10:00 Reassessment: Patient appears in no apparent distress at this time. Patient and/or ll1 family updated on plan of care and expected duration. Pain level reassessed. Patient is alert, oriented x 3, equal unlabored respirations, skin warm/dry/pink. Vital Signs: 08:38 BP 92 / 57; Pulse 83; Resp 17; Temp 97.7; Pulse Ox 96% on R/A; Weight 84.82 kg; Pain ll1 0/10; 10:00 BP 102 / 64; Pulse 83; Resp 20; Pulse Ox 96% on R/A; ll1 20:52 BP 123 / 61; Pulse 92; Resp 16; Pulse Ox 93% ; Pain 1/10; sm8 08:38 Pain Scale: Adult ll1 20:52 Pain Scale: Adult sm8 ED Course: 08:24 Patient arrived in ED. rg4 08:24 Mo Coelho MD is Private Physician. rg4 08:28 Ricardo Laird MD is Attending Physician. sunil 08:28 [facility] aj3 08:29 Arm band placed on Patient placed in an exam room, on a stretcher. ll1 08:35 Santana, Lynsay, RN is Primary Nurse. ll1 08:35 Inserted saline lock: 20 gauge in right antecubital area, using aseptic technique. ll1 Blood collected. 08:39 Triage completed. ll1 08:40 Patient has correct armband on for positive identification. Bed in low position. Call ll1 light in reach. Side rails up X 1. Client placed on continuous cardiac and pulse oximetry monitoring. NIBP monitoring applied. machine maintenance on. 09:00 Provided Education on: Use of call nieves. ll1 09:30 Mo Coelho MD is Hospitalizing Provider. aj3 10:00 No provider procedures requiring assistance completed. Patient admitted, IV remains in ll1 place. Administered Medications: 08:50 Drug: NS 0.9% IV 1000 ml Route: IV; Rate: 1 bolus; Site: right antecubital; ll1 12:45 Follow up: IV Status: Infusion continued upon admission; IV Intake: 1000ml ll1 08:50 Drug: Famotidine IVP 20 mg Route: IVP; Site: right antecubital; ll1 10:00 Follow up: Response: No adverse reaction ll1 08:50 Drug: Ondansetron IVP 4 mg Route: IVP; Site: right antecubital; ll1 12:45 Follow up: Response: No adverse reaction ll1 Medication: 08:40 VIS not applicable for this client. ll1 Intake: 12:45 IV: 1000ml; Total: 1000ml. ll1 Outcome: 09:31 Decision to Hospitalize by Provider. aj3 10:00 Admitted to ER Hold. Please see [facility] for further documentation. ll1 10:00 Condition: stable 10:00 Instructed on the need for admit. 06/22 11:27 Patient left the ED. 1 Signatures: Ricardo Laird MD MD cha Garcia, Rubi rg4 Khalif Dillon, RN RN ll1 Christine Spear, [employer]INGLE [employer]OOFER [employer] SHINGLE ROOFER 3 Silvana Rodriguez 8
--- NOTE | 2023-06-21 09:32 | EDPHYS ---
Physician Documentation [facility] Name: Tyler Jay Age: 72 yrs Sex: Male : 1950 Arrival Date: 06/21/2023 Time: 08:22 Bed 19 Private MD: Mo Coelho ED Physician Ricardo Laird HPI: 06/21 08:40 This 72 yrs old Unknown Male presents to ER via Wheelchair with complaints of aj3 Vomiting/Diarrhea. 08:40 Patient reports eating at a restaurant the evening prior to his symptoms starting and aj3 had zamudio wrap prescription. Patient last vomited yesterday but has had 4 episodes of diarrhea since waking up this morning. No reports of any bloody/black stools, hematemesis or severe abdominal pain at this time. He reports some cramping prior to having diarrhea episode.. 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 - Social history:: Smoking status: Patient/guardian denies using tobacco. ROS: 08:40 Constitutional: Negative for fever, chills, and weight loss, Cardiovascular: Negative aj3 for chest pain, palpitations, and edema, Respiratory: Negative for shortness of breath, cough, wheezing, and pleuritic chest pain, : Negative for injury, bleeding, discharge, and swelling, MS/Extremity: Negative for injury and deformity, Skin: Negative for injury, rash, and discoloration, Neuro: Negative for syncope, headache, weakness, numbness, tingling, and seizure. 08:40 Abdomen/GI: Positive for nausea, vomiting, and diarrhea, abdominal cramps, Negative for constipation, hematemesis, black/tarry stool, rectal bleeding. Exam: 08:40 Constitutional: This is a well developed, well nourished patient who is awake, alert, aj3 and in no acute distress. Neck: Supple, full range of motion without nuchal rigidity. Cardiovascular: irregularly irregular rhythm with normal rate and normal S1 and S2. No gallops, murmurs, or rubs. Normal PMI, no JVD. No pulse deficits. Respiratory: Lungs have equal breath sounds bilaterally, clear to auscultation and percussion. No rales, rhonchi or wheezes noted. No increased work of breathing, no retractions or nasal flaring. Skin: Warm, dry with normal turgor. Normal color with no rashes, no lesions, and no evidence of cellulitis. MS/ Extremity: Pulses equal, no cyanosis. Neurovascular intact. Full, normal range of motion. Neuro: Awake and alert, GCS 15, oriented to person, place, time, and situation. Motor strength 5/5 in all extremities. Sensory grossly intact. Normal gait. 08:40 Abdomen/GI: Exam negative for guarding, rebound tenderness, Inspection: abdomen appears normal, Bowel sounds: diminished, Palpation: abdomen is soft and non-tender. 09:18 ECG was reviewed by the Attending Physician. aj3 Vital Signs: 08:38 BP 92 / 57; Pulse 83; Resp 17; Temp 97.7; Pulse Ox 96% on R/A; Weight 84.82 kg; Pain ll1 0/10; 10:00 BP 102 / 64; Pulse 83; Resp 20; Pulse Ox 96% on R/A; ll1 20:52 BP 123 / 61; Pulse 92; Resp 16; Pulse Ox 93% ; Pain 1/10; sm8 08:38 Pain Scale: Adult ll1 20:52 Pain Scale: Adult sm8 MDM: 08:28 Patient medically screened. [facility] 08:40 Differential diagnosis: Nonspecific abd pain, gastritis, pancreatitis, diverticulitis, aj3 viral gastroenteritis, gastroenteritis. 08:47 Historians other than the Patient: Spouse/Significant Other: . Care significantly aj3 affected by the following chronic conditions: Hypertension, Congestive Heart Failure. 08:58 Data reviewed: Mild leukocytosis noted.. aj3 10:08 Consideration of Admission/Observation Patient was admitted/placed on observation. aj3 Management of patient was discussed with the following: Primary Care Provider: Dr. [place]. I considered the following discharge prescriptions or medication management in the emergency department Medications were administered in the Emergency Department. See MAR. Independent interpretation of the following test(s) in the Emergency Department EKG: See my EKG interpretation above child monitor: A-fib rate of 90. Test considered but Not performed: CT: Labs/exam do not indicate emergent CT at this time. Counseling: I had a detailed discussion with the patient and/or guardian regarding the historical points, exam findings, and any diagnostic results supporting the discharge/admit diagnosis, lab results, the need for further work-up and treatment in the hospital. Response to treatment: the patient's symptoms have mildly improved after treatment. 06/21 08:40 Order name: CBC with Diff; Complete Time: 08:57 aj3 06/21 08:40 Order name: CMP; Complete Time: 09:07 aj3 06/21 08:40 Order name: Lipase; Complete Time: 09:07 aj3 06/21 18:47 Order name: Glucose, Ancillary Testing EDMS 06/21 20:53 Order name: Glucose, Ancillary Testing EDMS 06/22 02:53 Order name: CBC with Automated Diff EDMS 06/22 03:40 Order name: Comprehensive Metabolic Panel EDMS 06/22 03:40 Order name: Thyroid Stimulating Hormone EDMS 06/22 05:53 Order name: Fecal Leukocyte Stain EDMS 06/22 07:50 Order name: Glucose, Ancillary Testing EDMS 06/22 10:58 Order name: Basic Metabolic Panel EDMS 06/21 08:40 Order name: EKG; Complete Time: 08:41 aj3 06/21 08:40 Order name: IV Saline Lock; Complete Time: 08:40 aj3 06/21 08:40 Order name: Labs collected and sent; Complete Time: 08:40 aj3 06/21 08:40 Order name: EKG - Nurse/Tech; Complete Time: 09:29 aj3 EC:18 Rate is 90 beats/min. Rhythm is irregularly irregular. QRS [place] is Normal. QT interval aj3 is normal. ST Segment is depressed in leads V4, V5. Clinical impression: Atrial Fibrillation. Interpreted by me. Reviewed by me. Administered Medications: 08:50 Drug: NS 0.9% IV 1000 ml Route: IV; Rate: 1 bolus; Site: right antecubital; ll1 12:45 Follow up: IV Status: Infusion continued upon admission; IV Intake: 1000ml ll1 08:50 Drug: Famotidine IVP 20 mg Route: IVP; Site: right antecubital; ll1 10:00 Follow up: Response: No adverse reaction ll1 08:50 Drug: Ondansetron IVP 4 mg Route: IVP; Site: right antecubital; ll1 12:45 Follow up: Response: No adverse reaction ll1 Disposition Summary: 06/21/23 09:31 Hospitalization Ordered Hospitalization Status: Observation aj3 Provider: Mo Coelho3 Condition: Stable aj3 Problem: new aj3 Symptoms: have improved aj3 Bed/Room Type: Standard aj3 Location: Telemetry/MedSurg (observation)(06/22/23 07:40) bd Room Assignment: 218(06/22/23 09:45) bd Diagnosis - Acute kidney failure, unspecified aj3 - Dehydration aj3 Forms: - Medication Reconciliation Form aj3 - SBAR form aj3 - Leadership Thank You Letter aj3 Signatures: Dispatcher [employer] EDMS Jacqui Magaña Corey, MD MD cha Aguilar, Jose, RN RN paul1 Khalif Dillon, RN RN ll1 Colleen Mac Amanda, PEDIATRIC ONCOLOGY NURSE PEDIATRIC ONCOLOGY NURSE aj3 Corrections: (The following items were deleted from the chart) 09:25 08:40 Constitutional: This is a well developed, well nourished patient who is awake, aj3 alert, and in no acute distress. Neck: Supple, full range of motion without nuchal rigidity. Cardiovascular: Regular rate and rhythm with a normal S1 and S2. No gallops, murmurs, or rubs. Normal PMI, no JVD. No pulse deficits. Respiratory: Lungs have equal breath sounds bilaterally, clear to auscultation and percussion. No rales, rhonchi or wheezes noted. No increased work of breathing, no retractions or nasal flaring. Skin: Warm, dry with normal turgor. Normal color with no rashes, no lesions, and no evidence of cellulitis. MS/ Extremity: Pulses equal, no cyanosis. Neurovascular intact. Full, normal range of motion. Neuro: Awake and alert, GCS 15, oriented to person, place, time, and situation. Motor strength 5/5 in all extremities. Sensory grossly intact. Normal gait. aj3 11:29 09:31 Telemetry/MedSurg (observation) aj3 zm 11:29 09:31 aj3 zm 06/22 07:40 06/21 11:29 [facility] ER HOLD zm bd 06/22 07:40 06/21 11:29 ERHOLD- zm bd 06/22 07:41 07:40 205 bd bd 08:33 07:41 220 bd ja1 08:35 08:33 218 ja1 bd 09:45 08:35 220 bd bd
[2023-06-21] MEDS ORDERED: ACETAMINOPHEN 325 MG TABLET PO PRN (10:51)
[2023-06-21] MEDS ORDERED: ONDANSETRON 4 MG/2 ML VIAL IV PRN (10:51)
[2023-06-21 10:55] VITALS: BMI 25.3
[2023-06-21] MEDS: NA CHLORIDE 0.9% 1,000 ML IV SCH ×4 (11:00→22:00)
[2023-06-21] MEDS ORDERED: LOPERAMIDE HCL 2 MG CAPSULE PO PRN (12:17)
[2023-06-21] MEDS ORDERED: PNEUMOCOCCAL VACCINE 0.5 ML IMVAC ONE (14:00)
--- NOTE | 2023-06-21 14:44 | P.HP ---
Certification for Inpatient Patient admitted to: Observation With expected LOS: <2 Midnights Patient will require the following post-hospital care: None Practitioner: I am a practitioner with admitting privileges, knowledge of patient current condition, hospital course, and medical plan of care. Services: Services provided to patient in accordance with Admission requirements found in Title 42 Section 412.3 of the Code of Federal Regulations Patient History Date of Service: 06/21/23 Primary Care Provider: Laquita Reason for admission: acute renal failure History of Present Illness: Patient is an office patient of [employer] with a history of dm2, atrial fib and chf. The patient had some zamudio wrapped shrimp Wednesday night. The patient started having nausea and vomiting and diarrhe yesterday. was getting worse and the patient came to the ER. The patient was found to have creatine of 3. His baseline is 1.1The patient has no other complaints Allergies No Known Allergies Allergy (Unverified 06/21/23 10:54) Home Medications: Metoprolol Succinate [Toprol Xl*] 50 mg PO BID 6AM 6PM #60 tab 05/21/17 Rivaroxaban [Xarelto] 20 mg PO DAILY #30 tab 05/21/17 Digoxin [Lanoxin] 0.125 mg PO DAILY 06/21/23 Furosemide [Lasix] 40 mg PO BID 06/21/23 Rosuvastatin [Crestor] 20 mg PO 06/21/23 Sacubitril/Valsartan [Entresto 97 mg-103 mg Tablet] 1 tab PO BID 06/21/23 - Past Medical/Surgical History Has patient received pneumonia vaccine in the past: No Diabetic: No - Social History Alcohol use: No CD- Drugs: No Caffeine use: Yes Review of Systems 10-point ROS is otherwise unremarkable Gastrointestinal: Nausea, Vomiting, Abdominal Pain, Diarrhea Physical Examination - Vital Signs Temperature: 98.2 F Blood Pressure: 100/89 Pulse: 91 Respirations: 20 Pulse Ox (%): 96 - Physical Exam General: Alert, In no apparent distress HEENT: Atraumatic, PERRLA, Mucous membr. moist/pink, EOMI, Sclerae nonicteric Neck: Supple, 2+ carotid pulse no bruit, No LAD, Without JVD or thyroid abnormality Respiratory: Clear to auscultation bilaterally, Normal air movement Cardiovascular: Regular rate/rhythm, Normal S1 S2 Gastrointestinal: Normal bowel sounds, No tenderness Musculoskeletal: No tenderness Integumentary: No rashes Neurological: Normal gait, Normal speech, Normal strength at 5/5 x4 extr, Normal tone, Normal affect Lymphatics: No axilla or inguinal lymphadenopathy - Studies Laboratory Data (last 24 hrs) 06/21/23 06/21/23 08:35 08:35 WBC 12.20 H Hgb 17.2 Hct 51.9 H Plt Count 378 Sodium 138 Potassium 4.2 BUN 27 H Creatinine 3.19 H Glucose 164 H Total Bilirubin 1.3 H AST 16 ALT 19 Alkaline Phosphatase 155 H Lipase 23 Assessment and Plan - Problems (Diagnosis) (1) Acute renal failure Current Visit: Yes Status: Acute Plan: Patient will be admitted. Started on gentle iv fluids. Will monitor creatine. If no improvement will consult nephro. Qualifiers: Acute renal failure type: unspecified Qualified Code(s): N17.9 - Acute kidney failure, unspecified (2) Chronic systolic (congestive) heart failure Current Visit: Yes Status: Chronic Plan: Patient is doing well. will be gentle with the fluids. Restart the entresto in the morning. May consider a lower dose of the losartan (3) Type 2 diabetes mellitus without complications Current Visit: Yes Status: Acute Plan: restart his home meds. 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
[2023-06-21] MEDS ORDERED: GLUCAGON 1 MG/VIAL IM PRN (14:50)
[2023-06-21] MEDS ORDERED: D10W 250 ML BAG IV PRN (14:50)
[2023-06-21] MEDS: INSULIN -REGULAR HUMAN 50 UNIT/0.5 ML ML SQ SCH ×2 (16:30→20:44)
[2023-06-21] MEDS ORDERED: RIVAROXABAN 15 MG TABLET PO SCH (17:00)
--- NOTE | 2023-06-21 17:57 | EKG ---
Test Date: 2023-06-21 Test Time: 09:18:00 Education Department Chair: GRIFFIN MEASUREMENT RESULTS: Intervals: Rate: 90 HI: QRSD: 92 QT: 380 QTc: 464 Porter: P: HI: QRS: 61 T: -69 INTERPRETIVE STATEMENTS: Atrial fibrillation ST & T wave abnormality, consider inferolateral ischemia or digitalis effect Abnormal ECG Compared to ECG 06/14/2023 10:44:22 Left ventricular hypertrophy no longer present Myocardial infarct finding no longer present ST (T wave) deviation still present Possible ischemia still present Electronically Signed On 06-21-23 17:55:50 CDT by Alfred Graves
[2023-06-21] MEDS: METOPROLOL XL 50 MG TAB PO SCH (18:00)
[2023-06-21] MEDS ORDERED: METOPROLOL XL 50 MG TAB PO ONE (18:36)
[2023-06-21] MEDS ORDERED: ROSUVASTATIN 10 MG TAB PO SCH (21:00)
[2023-06-21] MEDS ORDERED: ACETAMINOPHEN 325 MG TABLET ONE (21:57)
[2023-06-22 02:47] LABS: Absolute Lymphocytes (CBC) 2.5 K/uL (0.7-4.9); Hematocrit 41.9 % (39.6-49.0); Lymphocytes % 23.3 % (15.3-44.8); MCV 94.2 fL (80-100); MPV 10.4 fL (7.6-11.3); Platelets 318 thou/uL (152-406); RBC Red Blood Cell Count 4.44 M/uL (4.33-5.43)
[2023-06-22 03:14] LABS: Albumin 3.1 g/dL (3.4-5.0); Bilirubin Total 0.8 mg/dL (0.2-1.0); Potassium 3.5 mEq/L (3.5-5.1); Protein, Total 6.8 g/dL (6.4-8.2); Thyroid Stimulating Hormone 0.011 uIU/mL (0.358-3.740)
[2023-06-22] MEDS ORDERED: SACUBITRIL/VALSARTAN 49/51 MG TAB PO SCH ×3 (06:00→21:00)
[2023-06-22] MEDS: METOPROLOL XL 50 MG TAB PO SCH (06:00)
[2023-06-22] MEDS ORDERED: METOPROLOL XL 50 MG TAB PO ONE (06:31)
[2023-06-22] MEDS: NA CHLORIDE 0.9% 1,000 ML IV SCH (07:00)
[2023-06-22] MEDS: INSULIN -REGULAR HUMAN 50 UNIT/0.5 ML ML SQ SCH (07:30)
[2023-06-22] MEDS ORDERED: DIGOXIN 0.25 MG TABLET ONE (08:32)
[2023-06-22] MEDS ORDERED: RIVAROXABAN 10 MG TABLET PO SCH (09:00)
[2023-06-22] MEDS ORDERED: DIGOXIN 0.125 MG TABLET PO SCH (09:00)
[2023-06-22 10:58] LABS: Potassium 3.9 mEq/L (3.5-5.1)
[2023-06-22 11:40] VITALS: TEMP 97.7
[2023-06-22 11:43] VITALS: BP 123/61; O2SAT 93
--- NOTE | 2023-06-22 14:15 | P.DS ---
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 The patient had some zamudio wrapped shrimp Wednesday night. The patient started having nausea and vomiting and diarrhe yesterday. was getting worse and the patient came to the ER. The patient was found to have creatine of 3. His baseline is 1.1The patient has no other complaints Hospital Course: Patient was admitted for nausea and vomiting. With acute renal failure. He was started on fluid. The patients creatine improved from 3 to 1.69 His baseline is 1.1 The patient is eating with no vomitting or diarrhea. Would like to go home Will have him follow up in a week in the office. Thank you for allowing me to take part in the patients care. Vital Signs/Physical Exam: Temp Pulse Resp BP Pulse Ox 97.7 F 92 H 16 123/61 97 06/22/23 11:38 06/22/23 11:42 06/22/23 11:42 06/22/23 11:42 06/22/23 08:00 General: Alert, In no apparent distress HEENT: Atraumatic, PERRLA, EOMI Neck: Supple, JVD not distended Respiratory: Clear to auscultation bilaterally, Normal air movement Cardiovascular: Regular rate/rhythm, Normal S1 S2 Gastrointestinal: Normal bowel sounds, No tenderness Musculoskeletal: No tenderness Integumentary: No rashes Neurological: Normal speech, Normal tone, Normal affect Lymphatics: No axilla or inguinal lymphadenopathy Laboratory Data at Discharge: WBC 10.70 thou/uL (4.3-10.9) 06/22/23 02:00 Hgb 13.7 g/dL (13.6-17.9) D 06/22/23 02:00 Hct 41.9 % (39.6-49.0) 06/22/23 02:00 Plt Count 318 thou/uL (152-406) 06/22/23 02:00 Sodium 136 mEq/L (136-145) 06/22/23 09:38 Potassium 3.9 mEq/L (3.5-5.1) 06/22/23 09:38 BUN 29 mg/dL (7-18) H 06/22/23 09:38 Creatinine 1.69 mg/dL (0.70-1.30) H 06/22/23 09:38 Glucose 184 mg/dL (74-106) H 06/22/23 09:38 Total Bilirubin 0.8 mg/dL (0.2-1.0) 06/22/23 02:00 AST 11 U/L (15-37) L 06/22/23 02:00 ALT 14 U/L (16-61) L 06/22/23 02:00 Alkaline Phosphatase 115 U/L (45-117) D 06/22/23 02:00 Lipase 23 U/L (13-75) 06/21/23 08:35 Home Medications: Metoprolol Succinate [Toprol Xl*] 50 mg PO BID 6AM 6PM #60 tab 05/21/17 Rivaroxaban [Xarelto] 20 mg PO DAILY #30 tab 05/21/17 Digoxin [Lanoxin] 0.125 mg PO DAILY 06/21/23 Furosemide [Lasix] 40 mg PO BID 06/21/23 Rosuvastatin [Crestor] 20 mg PO 06/21/23 Sacubitril/Valsartan [Entresto 97 mg-103 mg Tablet] 1 tab PO BID 06/21/23 Diet: ADA Activity: Ad josh Followup: Mo Coelho MD [Primary Care Provider] - 1 Week (Call for appointment.) Physician Review: Patient Assessed, Agree with Above Assessment and Plan Time spent managing pt's care (in minutes): 30
== END 2023-06-22 11:27 | disposition home health service (06) ==
LOC: ER 08:22 → ERHOLD 10:01
PROVIDERS: ADMIT Internal Medicine; ATTEND Internal Medicine
DX: E11.9 Type 2 diabetes mellitus without complications (principal); I50.22 Chronic systolic (congestive) heart failure; I48.11 Longstanding persistent atrial fibrillation; R11.2 Nausea with vomiting, unspecified
CPT/HCPCS: 93005; 87040 ×2; 87045; 85025 ×2; 80048; 36415; 89055; 87177; 82947 ×3; 87046; 87209; 84443; 83690; 80053 ×2; J2405; J7030 ×3; G0378

== ENCOUNTER 2024-10-09 09:05 | Inpatient (IN) | payer OTHER ==
[2024-10-09 09:46] LABS: Absolute Basophils 0.1 K/uL (0-0.5); Absolute Eosinophils 0.2 K/uL (0-0.5); Absolute Lymphocytes (CBC) 1.2 K/uL (0.7-4.9); Absolute Monocytes 1.1 K/uL (0.1-1.3); Absolute Neutrophil 9.6 K/uL (1.8-8.0); Basophils % 1.1 % (0-1.3); Eosinophils % 1.9 % (0-4.4); Hematocrit 29.2 % (39.6-49.0); Hemoglobin 9.2 g/dL (13.6-17.9); Lymphocytes % 9.8 % (15.3-44.8); MCH 31.1 pg (27.0-35.0); MCHC 31.5 g/dL (32.0-36.0); MCV 98.6 fL (80-100); MPV 8.2 fL (7.6-11.3); Neutrophils % 78.2 % (41.7-73.7); Nucleated Red Blood Cells % 0.2 % (0-0); Platelets 559 thou/uL (152-406); RBC Red Blood Cell Count 2.96 M/uL (4.33-5.43); Red Cell Distribution Width 17.1 % (12.1-15.2)
[2024-10-09 09:50] LABS: PT Prothrombin Time 25.4 SECONDS (9.4-12.5); PTT, Activated Partial Thromb 50.3 SECONDS (24.3-36.9); Protime INR 2.32
[2024-10-09 10:03] LABS: Albumin/Globulin Ratio 0.8 (1.1-1.8); Alkaline Phosphatase 157 U/L (45-117); Anion Gap 8.6 mEq/L (5.0-15.0); BUN Blood Urea Nitrogen 21 mg/dL (7-18); Bicarbonate 28 mEq/L (21-32); Bilirubin Direct 0.6 mg/dL (0-0.2); Bilirubin Indirect, Calculated 0.4 mg/dL (0.2-0.8); Glomerular Filtration Rate 71 ml/min (=/>90); Glucose Level 141 mg/dL (74-106); Magnesium 2.3 mg/dL (1.6-2.4); NT PRO-BNP 535 pg/mL (<125); Potassium 3.6 mEq/L (3.5-5.1); Sodium Level 142 mEq/L (136-145); Troponin High Sensitivity 14.9 pg/mL (<58.9)
[2024-10-09 10:04] LABS: ALT/SGPT < 14 U/L (16-61); AST/SGOT < 10 U/L (15-37)
[2024-10-09] MEDS ORDERED: IPRATROPIUM BROM 0.5MG/2.5ML ONE (10:15)
[2024-10-09] MEDS ORDERED: ALBUTEROL 2.5 MG/3 ML NEB SOL ONE (10:15)
[2024-10-09] MEDS ORDERED: FUROSEMIDE 20 MG/ 2ML VIAL ONE ×2 (10:16→12:49)
--- NOTE | 2024-10-09 10:27 | RAD REPORT ---
EXAMINATION: US bilateral LOWER EXTREMITY VENOUS DOPPLER CLINICAL INDICATION: Leg swelling TECHNIQUE: Sonographic evaluation of the veins of the lower extremity bilaterally formed.Grayscale, c olor and spectral analysis performed on all vessels COMPARISON: No prior exam. FINDINGS: The common femoral, superficial femoral, greater saphenous, popliteal and posterior tibial veins bila terally are compressible and demonstrate augmentation. Doppler demonstrates good flow. IMPRESSION: No evidence of deep venous thrombosis involving either lower extremity
--- NOTE | 2024-10-09 11:43 | RAD REPORT ---
Procedure: Chest Single View HISTORY: Shortness of breath COMPARISON: 2022 FINDINGS: Moderate to large right pleural effusion suspected with right basilar atelectasis Mild bilateral interstitial lung opacities Cardiomegaly IMPRESSION: Mild bilateral interstitial lung opacities probably interstitial pulmonary edema Moderate to large right pleural effusion
[2024-10-09 11:57] LABS: Specific Gravity 1.016 (1.005-1.030); Urine Bilirubin NEGATIVE (Negative); Urine Blood Negative (Negative); Urine Clarity Clear (Clear); Urine Color Light-Yellow (Yellow); Urine Glucose TRACE (Negative); Urine Ketones NEGATIVE (Negative); Urine Microscopic Reflex YN NO UMIC; Urine Nitrite NEGATIVE (Negative); Urine Protein NEGATIVE (Negative); Urine Urobilinogen 1+ (Normal); Urine pH 5.5 (5.0-7.0)
--- NOTE | 2024-10-09 12:05 | RAD REPORT ---
EXAMINATION: CTA CHEST PE CLINICAL INDICATION: Chest pain TECHNIQUE: 100 cc 370 Isovue administered intravenously. This examination was performed according to an angiographic protocol with 3D post-processing. This involves 3D reconstructions, MIPs, volume rendered images and/or shaded surface rendering. One or more of the following dose reduction techniqu es were used: Automated exposure control, adjustment of the mA and/or kV according to patient size, and/or iterative reconstruction. Unless otherwise specified, incidental findings do not require dedic ated imaging follow-up. [id number]. COMPARISON: No prior exam. FINDINGS: A pulmonary embolus is not seen. An aortic aneurysm not noted. Large right pleural effusion. Small left pleural effusion No pericardial effusion. Right basilar atelectasis. Mild bilateral interstitial lung opacities. 1.3 cm left lower lobe nodule IMPRESSION: No evidence of a pulmonary embolism Large right pleural effusion Mild bilateral interstitial lung opacities may represent interstitial pulmonary edema 1.3 cm left lower lobe nodule may be neoplastic, infectious or inflammatory. PET/CT scan could be obt ained for further evaluation
--- NOTE | 2024-10-09 12:31 | ER ---
Nurse's Notes [facility] Name: Tyler Jay Age: 74 yrs Sex: Male : 1950 Arrival Date: 10/09/2024 Time: 09:05 Bed 4 Private MD: Diagnosis: Hypoxemia;Unspecified combined systolic (congestive) and diastolic (congestive) heart failure;Unspecified atrial fibrillation Presentation: 10/09 09:29 Chief complaint: Patient states: SOB and pedal edema that began 3 days ago. Coronavirus ss screen: Client denies travel out of the [place] in the last 14 days. Ebola Screen: Patient denies exposure to infectious person. Patient denies travel to an Ebola-affected area in the 21 days before illness onset. Initial Sepsis Screen: Does the patient meet any 2 criteria? No. Patient's initial sepsis screen is negative. Does the patient have a suspected source of infection? No. Patient's initial sepsis screen is negative. Risk Assessment: Do you want to hurt yourself or someone else? Patient reports no desire to harm self or others. Onset of symptoms was October 06, 2024. 09:29 Method Of Arrival: Wheelchair ss 09:29 Acuity: ROBBI 2 ss Triage Assessment: 16:10 General: Appears in no apparent distress. Respiratory: Onset: The symptoms/episode ll1 began/occurred 3 days, the patient has moderate shortness of breath. 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 - Infectious Disease History:: Denies. - Social history:: Smoking status: Patient/guardian denies using tobacco, the patient reports quitting approximately 3 years ago. Screenin:02 [facility] ED Fall Risk Assessment (Adult) History of falling in the last 3 months, ll1 including since admission No falls in past 3 months (0 pts) Confusion or Disorientation No (0 pts) Intoxicated or Sedated No (0 pts) Impaired Gait Yes (1 pt) Mobility Assist Device Used No (0 pt) Altered Elimination No (0 pt) Score/Fall Risk Level 0 - 2 = Low Risk Maintained a safe environment, Hourly rounding (assess needs \T\ fall precautionary measures) done. Abuse screen: Denies threats or abuse. Nutritional screening: No deficits noted. Tuberculosis screening: No symptoms or risk factors identified. Assessment: 09:35 General: Appears distressed, Behavior is calm, cooperative, appropriate for age. Pain: ll1 Denies pain. Cardiovascular: Reports shortness of breath, Rhythm is regular. Respiratory: Reports shortness of breath on exertion Airway is patent Trachea midline Respiratory effort is labored, Respiratory pattern is tachypnea. Musculoskeletal: Reports BLE swelling. 10:29 Reassessment: No changes from previously documented assessment. Patient and/or family ll1 updated on plan of care and expected duration. Pain level reassessed. Patient is alert, oriented x 3, equal unlabored respirations, skin warm/dry/pink. 10:52 Reassessment: No changes from previously documented assessment. Patient and/or family ll1 updated on plan of care and expected duration. Pain level reassessed. Patient is alert, oriented x 3, equal unlabored respirations, skin warm/dry/pink. Patient states feeling better. Patient states symptoms have improved. 11:53 Reassessment: No changes from previously documented assessment. Patient and/or family ll1 updated on plan of care and expected duration. Pain level reassessed. Patient is alert, oriented x 3, equal unlabored respirations, skin warm/dry/pink. 16:09 Respiratory: Breath sounds are clear bilaterally. ll1 Vital Signs: 09:30 BP 122 / 67; Pulse 87; Resp 20; Pulse Ox 92% ; Pain 0/10; ll1 09:40 Resp 19; Pulse Ox 96% on 3 lpm NC; ll1 10:51 BP 138 / 63; Pulse 79; Resp 19; Temp 98; Pulse Ox 94% on 3 lpm NC; Pain 0/10; ll1 12:05 BP 139 / 68; Pulse 67; Resp 19; Pulse Ox 96% on 3 lpm NC; ll1 13:48 BP 137 / 76; Pulse 64; Resp 18; Pulse Ox 94% on 3 lpm NC; ll1 15:45 BP 108 / 76; Pulse 90; Resp 19; Pulse Ox 97% on 3 lpm NC; ll1 09:30 Pain Scale: Adult ll1 10:51 Pain Scale: Adult ll1 ED Course: 09:08 Patient arrived in ED. al6 09:15 Ricardo Nichole PA is PHCP. cp 09:15 Estuardo Gao MD is Attending Physician. cp 09:22 Khalif Dillon, JAN is Primary Nurse. ll1 09:22 Arm band placed on Patient placed in an exam room, on a stretcher. ll1 09:30 Triage completed. ss 09:30 Inserted saline lock: 22 gauge in right forearm, using aseptic technique. Blood ll1 collected. Flushed with 10 mL NS. 09:35 Initial lab(s) drawn, by me, sent to lab. ll1 10:02 Patient has correct armband on for positive identification. Bed in low position. Call ll1 light in reach. Provided Education on: ER procedures and process. laboratory monitor on. 10:24 US Extremity Venous W Compression Omar In Process Unspecified. EDMS 10:28 EKG done, by ED staff, reviewed by Ricardo MCCRAY. ll1 10:35 XRAY Chest (1 view) In Process Unspecified. EDMS 11:16 CT Chest For PE Angio In Process Unspecified. EDMS 11:46 Urinalysis w/ reflexes Sent. ll1 11:46 Urine collected: clean catch specimen, clear, Amount Voided: 600mL. ll1 12:29 Mo Coelho MD is Hospitalizing Provider. cp 12:30 Lactate w/ 2H reflex if indic. Sent. ll1 12:30 Blood Culture Adult (2) Sent. ll1 16:09 No provider procedures requiring assistance completed. Patient admitted, IV remains in ll1 place. Administered Medications: 10:28 Drug: DuoNeb Nebulize (2.5 mg - 0.5 mg) 3 ml Nebulizer once Route: Nebulizer; ll1 11:46 Follow up: Response: No adverse reaction; Wheezing diminished; RASS: Alert and Calm (0) ll1 10:28 Drug: Furosemide IVP 20 mg IVP once; give over 2 minutes Route: IVP; Site: right ll1 forearm; 11:46 Follow up: Response: No adverse reaction ll1 12:45 Drug: AZITHromycin PO 500 mg PO once Route: PO; bp 16:13 Follow up: Response: No adverse reaction ll1 12:45 Drug: Furosemide IVP 20 mg IVP once; give over 2 minutes Route: IVP; Site: left forearm;bp 16:13 Follow up: Response: No adverse reaction ll1 Medication: 16:10 VIS not applicable for this client. ll1 Outcome: 12:30 Decision to Hospitalize by Provider. cp 16:09 Admitted to Med/surg accompanied by tech, via wheelchair, room 204, with oxygen, with ll1 chart, Report called to faxed to [facility] at 1603 16:09 Condition: stable 16:09 Instructed on the need for admit, 16:42 Patient left the ED. ll1 Signatures: Dispatcher [employer] EDMS So Mclaughlin, RN RN ss Ricardo Nichole, SHAZIA PA cp Terry Ross RN RN Khalif Esquivel RN RN ll1 Suyl Lin
--- NOTE | 2024-10-09 12:31 | EDPHYS ---
Physician Documentation [facility] Name: Tyler Jay Age: 74 yrs Sex: Male : 1950 Arrival Date: 10/09/2024 Time: 09:05 Bed 4 Private MD: ED Physician Estuardo Gao HPI: 10/09 09:28 This 74 yrs old Male presents to ER via Unassigned with complaints of Shortness Of cp Breath, Leg Swelling. 09:28 The patient has shortness of breath at rest. Onset: The symptoms/episode began/occurred cp 3 day(s) ago. Duration: The symptoms are continuous, and are steadily getting worse. Associated signs and symptoms: Pertinent positives: chest pain, Pertinent negatives: diaphoresis, fever, vomiting, swelling of lower extremities. Severity of symptoms: in the emergency department the symptoms are worse moderately. Historical: - Allergies: 09:30 No Known Allergies; ss - PMHx: 09:30 arrhythmia; CHF; Hypertension; ss - PSHx: :30 Splenectomy; ss - Immunization history:: Adult Immunizations up to date. - Infectious Disease History:: Denies. - Social history:: Smoking status: Patient/guardian denies using tobacco, the patient reports quitting approximately 3 years ago. ROS: 09:31 Eyes: Negative for injury, pain, redness, and discharge, cp 09:31 Constitutional: Negative for body aches, chills, fever, poor PO intake, 09:31 ENT: Negative for drainage from ear(s), ear pain, sore throat, difficulty swallowing, difficulty handling secretions, 09:31 Cardiovascular: Positive for chest pain, edema, orthopnea, 09:31 Respiratory: Positive for shortness of breath, at rest. Negative for wheezing, 09:31 Abdomen/GI: Negative for abdominal pain, vomiting, diarrhea, constipation, 09:31 Neuro: Negative for altered mental status, dizziness, headache, weakness, 09:31 All other systems are negative, cp Exam: 09:35 Constitutional: The patient appears alert, awake, non-diaphoretic, non-toxic, well cp developed, well nourished, in obvious distress, mildly distressed, uncomfortable, 09:35 Head/Face: Normocephalic, atraumatic. cp 09:35 Eyes: Periorbital structures: appear normal, Conjunctiva: normal, no exudate, no injection, Sclera: no appreciated abnormality, Lids and lashes: appear normal, bilaterally, 09:35 ENT: External ear(s): are unremarkable, Nose: is normal, Mouth: Lips: moist, Oral mucosa: pink and intact, moist, Posterior pharynx: Airway: no evidence of obstruction, patent, 09:35 Neck: ROM/movement: is normal, is supple, without pain, no range of motions limitations, 09:35 Chest/axilla: Inspection: normal, 09:35 Cardiovascular: Rate: normal, Rhythm: irregular, Edema: ankle edema, that is moderate, JVD: is not appreciated, 09:35 Respiratory: mild respiratory distress is noted, Respirations: labored breathing, that is moderate, accessory muscle usage, is absent, intercostal retractions, are absent, Breath sounds: decreased breath sounds, that are moderate, throughout, stridor, is not appreciated, 09:35 Abdomen/GI: Inspection: abdomen appears normal, Palpation: abdomen is soft and non-tender, in all quadrants, 09:35 Back: pain, is absent, ROM is normal, 09:35 Neuro: Orientation: to person, place \T\ time. Mentation: is normal, Motor: moves all fours, strength is normal, 10:28 ECG was reviewed by the Attending Physician. cp Vital Signs: 09:30 BP 122 / 67; Pulse 87; Resp 20; Pulse Ox 92% ; Pain 0/10; ll1 09:40 Resp 19; Pulse Ox 96% on 3 lpm NC; ll1 10:51 BP 138 / 63; Pulse 79; Resp 19; Temp 98; Pulse Ox 94% on 3 lpm NC; Pain 0/10; ll1 12:05 BP 139 / 68; Pulse 67; Resp 19; Pulse Ox 96% on 3 lpm NC; ll1 13:48 BP 137 / 76; Pulse 64; Resp 18; Pulse Ox 94% on 3 lpm NC; ll1 15:45 BP 108 / 76; Pulse 90; Resp 19; Pulse Ox 97% on 3 lpm NC; ll1 09:30 Pain Scale: Adult ll1 10:51 Pain Scale: Adult ll1 MDM: 09:21 Medical Screening Exam initiated cp 10:00 Differential diagnosis: Bronchitis CHF exacerbation, Chronic Obstructive Pulmonary cp Disease pneumonia, Pneumothorax pulmonary edema, Pulmonary Embolism Sepsis. 12:15 Data reviewed: vital signs, nurses notes, lab test result(s), EKG, radiologic studies, cp CT scan, plain films, and as a result, I will admit patient. 12:15 Antibiotic administration: Zithromax. I considered the following discharge cp prescriptions or medication management in the emergency department Medications were administered in the Emergency Department. See MAR. 12:30 Management of patient was discussed with the following: Primary Care Provider: DR Laquita barillas who will admit after discussion. 10/09 09:30 Order name: Basic Metabolic Panel; Complete Time: 10: cp 10/09 11:24 Interpretation: Normal except: CL 109; GLUC 141; BUN 21; GFR 71. cp 10/09 09:30 Order name: CBC with Diff; Complete Time: 10: cp 10/09 11:24 Interpretation: Normal except: WBC 12.30; RBC 2.96; HGB 9.2; HCT 29.2; MCHC 31.5; PLT cp 559; RDW 17.1; JONAS% 78.2; LYM% 9.8; NEUT A 9.6. 10/09 09:30 Order name: LFT's; Complete Time: 10: cp 12 11:24 Interpretation: Normal except: AST < 10; ALT < 14; ALK 157; BILID 0.6; ALB 3.0; GLOB cp 4.0; A/G 0.8. 10/09 09:30 Order name: Magnesium; Complete Time: 10: cp 10/09 09:30 Order name: NT PRO-BNP; Complete Time: 10: cp 10/09 09:30 Order name: PT-INR; Complete Time: 10: cp 12 09:30 Order name: Troponin HS; Complete Time: 10: cp 10/09 09:30 Order name: Ptt, Activated; Complete Time: 10: cp 10/09 10:13 Order name: Urinalysis w/ reflexes; Complete Time: 11:58 cp 10/09 11:58 Interpretation: Normal except: UGLUC TRACE; UUROB 1+. cp 10/09 12:11 Order name: Lactate w/ 2H reflex if indic. cp 10/09 12:11 Order name: Blood Culture Adult (2) cp 10/09 13:21 Order name: Basic Metabolic Panel EDMS 10/09 13:21 Order name: Basic Metabolic Panel EDMS 10/09 13:21 Order name: CBC with Automated Diff EDMS 10/09 13:21 Order name: CBC with Automated Diff EDMS 10/09 13:21 Order name: NT PRO-BNP EDMS 10/09 13:21 Order name: NT PRO-BNP EDMS 10/09 13:37 Order name: Magnesium EDMS 10/09 13:37 Order name: Thyroid Stimulating Hormone EDMS 10/09 13:37 Order name: CBC with Automated Diff EDMS 10/09 13:37 Order name: CBC with Automated Diff EDMS 10/09 13:37 Order name: CBC with Automated Diff EDMS 10/09 13:37 Order name: CBC with Automated Diff EDMS 10/09 13:37 Order name: Comprehensive Metabolic Panel EDMS 10/09 13:37 Order name: Comprehensive Metabolic Panel EDMS 10/09 13:37 Order name: Comprehensive Metabolic Panel EDMS 10/09 13:37 Order name: Comprehensive Metabolic Panel EDMS 10/09 14:38 Order name: Hemoglobin A1c EDMS 10/09 09:30 Order name: XRAY Chest (1 view); Complete Time: 11:58 cp 10/09 11:59 Interpretation: Report review. cp 10/09 09:31 Order name: US Extremity Venous W Compression Omar; Complete Time: 10:58 cp 10/09 10:59 Order name: CT Chest For PE Angio; Complete Time: 12:10 cp 10/09 13:37 Order name: CONS Physician Consult EDAL 10/09 09:30 Order name: Cardiac monitoring; Complete Time: 10:28 cp 10/09 09:30 Order name: EKG - Nurse/Tech; Complete Time: 10:28 cp 10/09 09:30 Order name: IV Saline Lock; Complete Time: 09:34 cp 10/09 09:30 Order name: Labs collected and sent; Complete Time: 09:34 cp 10/09 09:30 Order name: O2 Per Protocol; Complete Time: 09:34 cp 10/09 09:30 Order name: O2 Sat Monitoring; Complete Time: 09:34 cp EC:28 Rate is 86 beats/min. Rhythm is irregular. QRS interval is normal. QT interval is cp normal. T waves are Inverted in leads V5, V6. Interpreted by me. Reviewed by me. Administered Medications: 10:28 Drug: DuoNeb Nebulize (2.5 mg - 0.5 mg) 3 ml Nebulizer once Route: Nebulizer; ll1 11:46 Follow up: Response: No adverse reaction; Wheezing diminished; RASS: Alert and Calm (0) ll1 10:28 Drug: Furosemide IVP 20 mg IVP once; give over 2 minutes Route: IVP; Site: right ll1 forearm; 11:46 Follow up: Response: No adverse reaction ll1 12:45 Drug: AZITHromycin PO 500 mg PO once Route: PO; bp 16:13 Follow up: Response: No adverse reaction ll1 12:45 Drug: Furosemide IVP 20 mg IVP once; give over 2 minutes Route: IVP; Site: left forearm;bp 16:13 Follow up: Response: No adverse reaction ll1 Disposition: 19:23 Co-signature as Attending Physician, Estuardo Gao MD I reviewed the patient's care rn provided by the Advanced Practice Provider and agree with the diagnosis and treatment plan. Disposition Summary: 10/09/24 12:30 Hospitalization Ordered Notes: Hospitalization Status: Inpatient Admission cp Provider: Mo Coelho cp [facility] cp Condition: Stable cp Problem: new cp Symptoms: have improved cp Bed/Room Type: Standard cp Room Assignment: 204(10/09/24 16:00) bc6 Diagnosis - Hypoxemia cp - Unspecified combined systolic (congestive) and diastolic (congestive) heart failure cp - Unspecified atrial fibrillation cp Forms: - Medication Reconciliation Form cp - SBAR form cp - Leadership Thank You Letter cp Signatures: Dispatcher [employer] EDAL Estuardo Gao MD MD rn Blanchard, Shelby, RN RN Ricardo Negro PA PA cp Terry Ross RN RN bp Khalif Dillon RN RN ll1 Marielle Franco bc6 Corrections: (The following items were deleted from the chart) 09:31 09:31 Chest Single View+RAD.RAD.BRZ ordered. EDMS EDMS 10:59 10:59 Chest For PE Angio+CT.RAD.BRZ ordered. EDMS EDMS 12:12 12:12 LACTATE+C.LAB.BRZ ordered. EDMS EDMS 12:12 12:12 BLOOD CULTURE*+BA.LAB.BRZ ordered. EDMS EDMS 16:00 12:30 cp bc6
[2024-10-09] MEDS ORDERED: AZITHROMYCIN 250 MG TAB ONE ×2 (12:49→12:54)
[2024-10-09] MEDS ORDERED: ONDANSETRON 4 MG/2 ML VIAL IV PRN (13:16)
[2024-10-09] MEDS ORDERED: ALBUTEROL 2.5 MG/3 ML NEB SOL NEB PRN (13:16)
[2024-10-09] MEDS ORDERED: IPRATROPIUM BROM 0.5MG/2.5ML NEB PRN (13:16)
--- NOTE | 2024-10-09 13:41 | P.HP ---
Certification for Inpatient Patient admitted to: Inpatient With expected LOS: >2 Midnights Patient will require the following post-hospital care: None Practitioner: I am a practitioner with admitting privileges, knowledge of patient current condition, hospital course, and medical plan of care. Services: Services provided to patient in accordance with Admission requirements found in Title 42 Section 412.3 of the Code of Federal Regulations Patient History Date of Service: 10/09/24 Primary Care Provider: Laquita Reason for admission: Acute on chronic heart failure History of Present Illness: Office patient of [facility]. He has a history of atrial fib and chf with EF of 25- 35% he has been having swelling of his lower extremities and orthopnea of the legs for the past week. He thought of calling on Wednesday. Decided to come to the ER today. He was found to have pleural effusion and decision was made to admit the patient for diuresis Allergies No Known Allergies Allergy (Unverified 06/21/23 10:54) Home Medications: Metoprolol Succinate [Toprol Xl*] 50 mg PO BID 6AM 6PM #60 tab 05/21/17 Rivaroxaban [Xarelto] 20 mg PO DAILY #30 tab 05/21/17 Digoxin [Lanoxin] 0.125 mg PO DAILY 06/21/23 Furosemide [Lasix] 40 mg PO BID 06/21/23 Rosuvastatin [Crestor] 20 mg PO 06/21/23 Sacubitril/Valsartan [Entresto 97 mg-103 mg Tablet] 1 tab PO BID 06/21/23 - Past Medical/Surgical History Diabetic: Yes -: AFIB -: CHF -: NIDDM -: HTN -: tonsillectomy -: adenoidectomy - Social History Alcohol use: No CD- Drugs: No Caffeine use: Yes Review of Systems 10-point ROS is otherwise unremarkable Cardiovascular: Orthopnea, Edema (2+) Physical Examination - Physical Exam General: Alert, In no apparent distress HEENT: Atraumatic, PERRLA, Mucous membr. moist/pink, EOMI, Sclerae nonicteric Neck: Supple, 2+ carotid pulse no bruit, No LAD, Without JVD or thyroid abnormality Respiratory: Clear to auscultation bilaterally, Normal air movement Cardiovascular: Regular rate/rhythm, Normal S1 S2, Edema Gastrointestinal: Normal bowel sounds, No tenderness Musculoskeletal: No tenderness Integumentary: No rashes Neurological: Normal gait, Normal speech, Normal strength at 5/5 x4 extr, Normal tone, Normal affect Lymphatics: No axilla or inguinal lymphadenopathy - Studies Laboratory Data (last 24 hrs) 10/09/24 10/09/24 10/09/24 09:25 09:25 09:25 WBC 12.30 H Hgb 9.2 L Hct 29.2 L Plt Count 559 H PT 25.4 H INR 2.32 APTT 50.3 H Sodium 142 Potassium 3.6 BUN 21 H Creatinine 1.09 Glucose 141 H Magnesium 2.3 Total Bilirubin 1.0 AST < 10 L ALT < 14 L Alkaline Phosphatase 157 H Assessment and Plan - Problems (Diagnosis) (1) Acute systolic (congestive) heart failure Current Visit: No Status: Acute Plan: will continue entresto. Add lasix. consult to Dr. Brown. he has had an echocardiogram in the last 6 months (2) Type 2 diabetes mellitus without complications Current Visit: No Status: Acute Plan: will recheck his a1c Qualifiers: Diabetes mellitus manager intermediate insulin use: without manager intermediate use (3) Atrial fibrillation with rapid ventricular response Onset Date: 05/18/17 Current Visit: No Status: Chronic Plan: hold metoprol. he has a low rate of 54 in the er. Will continue xarelto Discharge Plan: Home Plan to discharge in: 48 Hours - Advance Directives Does patient have a Living Will: No Does patient have a Durable POA for Healthcare: No - Code Status/Comfort Care Code Status Assessed: No Code Status: Full Code Physician Review: Patient Assessed, Agree with Above Assessment and Plan Critical Care: No Time Spent Managing Pts Care (In Minutes): 40
[2024-10-09] MEDS: INSULIN REGULAR (HUMAN) 100 UNIT/ML SQ SCH (16:30)
[2024-10-09] MEDS ORDERED: ENOXAPARIN 40 MG/0.4 ML SQ SCH (17:00)
[2024-10-09] MEDS ORDERED: FUROSEMIDE 40 MG/4 ML VIAL IV SCH (17:00)
[2024-10-09] MEDS ORDERED: FLU (Fluarix Triv) TS24-25(6MOS UP)/PF 45 MCG/0.5 ML Syringe IM ONE (18:15)
[2024-10-09] MEDS: RIVAROXABAN 20 MG TABLET PO SCH (18:43)
[2024-10-09] MEDS: SACUBITRIL/VALSARTAN 49/51 MG TAB PO SCH (20:25)
[2024-10-09] MEDS: ROSUVASTATIN 5 MG TAB PO SCH (20:25)
[2024-10-10 06:26] LABS: Absolute Basophils 0.2 K/uL (0-0.5); Absolute Eosinophils 0.5 K/uL (0-0.5); Absolute Lymphocytes (CBC) 1.7 K/uL (0.7-4.9); Absolute Monocytes 1.7 K/uL (0.1-1.3); Absolute Neutrophil 9.1 K/uL (1.8-8.0); Basophils % 1.2 % (0-1.3); Eosinophils % 3.6 % (0-4.4); Hematocrit 28.2 % (39.6-49.0); Lymphocytes % 13.2 % (15.3-44.8); MCH 31.5 pg (27.0-35.0); MCHC 31.9 g/dL (32.0-36.0); MCV 98.8 fL (80-100); MPV 8.7 fL (7.6-11.3); Monocytes % 12.6 % (3.3-12.3); Neutrophils % 69.4 % (41.7-73.7); Nucleated Red Blood Cells % 0.1 % (0-0); Platelets 539 thou/uL (152-406); RBC Red Blood Cell Count 2.85 M/uL (4.33-5.43); Red Cell Distribution Width 16.9 % (12.1-15.2)
[2024-10-10 06:39] LABS: AST/SGOT 11 U/L (15-37); Albumin/Globulin Ratio 0.8 (1.1-1.8); Alkaline Phosphatase 147 U/L (45-117); Anion Gap 6.2 mEq/L (5.0-15.0); BUN Blood Urea Nitrogen 20 mg/dL (7-18); Bicarbonate 31 mEq/L (21-32); Bilirubin Total 0.8 mg/dL (0.2-1.0); Globulin 3.9 g/dL (2.3-3.5); Glomerular Filtration Rate 90 ml/min (=/>90); Glucose Level 116 mg/dL (74-106); Magnesium 2.3 mg/dL (1.6-2.4); NT PRO-BNP 541 pg/mL (<125); Potassium 4.2 mEq/L (3.5-5.1); Protein, Total 6.9 g/dL (6.4-8.2); Sodium Level 140 mEq/L (136-145); Thyroid Stimulating Hormone 0.017 uIU/mL (0.358-3.740)
[2024-10-10 06:40] LABS: ALT/SGPT < 14 U/L (16-61)
--- NOTE | 2024-10-10 09:23 | P.PN ---
Subjective Date of Service: 10/10/24 Primary Care Provider: Laquita Chief Complaint: Acute on chronic heart failure Subjective: No new changes Review of Systems 10-point ROS is otherwise unremarkable Cardiovascular: Edema Physical Examination - Vital Signs Temperature: 97.1 F Blood Pressure: 129/66 Pulse: 75 Respirations: 24 Pulse Ox (%): 92 - Physical Exam General: Alert, In no apparent distress HEENT: Atraumatic, PERRLA, EOMI Neck: Supple, JVD not distended Respiratory: Clear to auscultation bilaterally, Normal air movement Cardiovascular: Regular rate/rhythm, Normal S1 S2 Gastrointestinal: Normal bowel sounds, No tenderness Musculoskeletal: No tenderness Integumentary: No rashes Neurological: Normal speech, Normal tone, Normal affect Lymphatics: No axilla or inguinal lymphadenopathy - Studies Laboratory Data (last 24 hrs) 10/09/24 10/09/24 10/09/24 09:25 09:25 09:25 WBC 12.30 H Hgb 9.2 L Hct 29.2 L Plt Count 559 H PT 25.4 H INR 2.32 APTT 50.3 H Sodium 142 Potassium 3.6 BUN 21 H Creatinine 1.09 Glucose 141 H Magnesium 2.3 Total Bilirubin 1.0 AST < 10 L ALT < 14 L Alkaline Phosphatase 157 H Assessment And Plan - Current Problems (Diagnosis) (1) Acute systolic (congestive) heart failure Current Visit: No Status: Acute Plan: will continue entresto. Add lasix. consult to Dr. Brown. he has had an echo cardiogram in the last 6 months (2) Type 2 diabetes mellitus without complications Current Visit: No Status: Acute Plan: will recheck his a1c Qualifiers: Diabetes mellitus lobsterman insulin use: without lobsterman use (3) Atrial fibrillation with rapid ventricular response Onset Date: 05/18/17 Current Visit: No Status: Chronic Plan: hold metoprol. he has a low rate of 54 in the er. Will continue xarelto Discharge Plan: Home Plan to discharge in: 24 Hours - Code Status/Comfort Care Code Status Assessed: No Physician Review: Patient Assessed, Agree with Above Assessment and Plan Critical Care: No Time Spent Managing PTS Care (In Minutes): 20
[2024-10-10] MEDS: FUROSEMIDE 40 MG/4 ML VIAL IV SCH ×2 (09:28→16:48)
--- NOTE | 2024-10-10 09:57 | P.CNS ---
Date of Consult: 10/10/24 Primary Care Provider: Laquita Chief Complaint: Acute on chronic heart failure History of Present Illness: Patient with PMH of atrial fibrillation, Heart failure preserved EF, moderate , presented with worsening SOB and BLE. denies chest pain, no palpitations, no syncope. Allergies No Known Allergies Allergy (Unverified 06/21/23 10:54) Home medications list reviewed: Yes Home Medications: Metoprolol Succinate [Toprol Xl*] 50 mg PO BID 6AM 6PM #60 tab 05/21/17 Rivaroxaban [Xarelto] 20 mg PO DAILY #30 tab 05/21/17 Digoxin [Lanoxin] 0.125 mg PO DAILY 06/21/23 Furosemide [Lasix] 40 mg PO BID 06/21/23 Rosuvastatin [Crestor] 20 mg PO 1X 06/21/23 Sacubitril/Valsartan [Entresto 97 mg-103 mg Tablet] 1 tab PO BID 06/21/23 - Past Medical/Surgical History Diabetic: Yes -: AFIB -: CHF -: NIDDM -: HTN -: tonsillectomy -: adenoidectomy - Social History Smoking Status: Current every day smoker Alcohol use: No CD- Drugs: No Caffeine use: Yes Place of Residence: Home Review of Systems 10-point ROS is otherwise unremarkable Physical Examination Temp Pulse Resp BP Pulse Ox 97.1 F 75 24 H 129/66 92 10/10/24 09:22 10/10/24 09:22 10/10/24 09:22 10/10/24 09:22 10/10/24 09:22 General: Alert, In no apparent distress HEENT: Atraumatic, PERRLA, Mucous membr. moist/pink, EOMI, Sclerae nonicteric Neck: Supple, 2+ carotid pulse no bruit, No LAD, Without JVD or thyroid abnormality Respiratory: Clear to auscultation bilaterally, Normal air movement Cardiovascular: Edema, Irregular heart rate/rhythm Gastrointestinal: Normal bowel sounds, No tenderness Musculoskeletal: No tenderness Integumentary: No rashes Neurological: Normal gait, Normal speech, Normal tone, Normal affect Lymphatics: No axilla or inguinal lymphadenopathy Laboratory Data (last 24 hrs) 10/09/24 09:25 Sodium 142 Potassium 3.6 BUN 21 H Creatinine 1.09 Glucose 141 H Magnesium 2.3 Total Bilirubin 1.0 AST < 10 L ALT < 14 L Alkaline Phosphatase 157 H - Problems (1) Acute on chronic diastolic heart failure Current Visit: Yes Status: Acute Plan: Patient most recent echo in clinic shows EF 55%, grade 2 DD, moderate increase lasix to 40 mg IV BID Monitor input and output and electrolytes. continue Toprol XL 25 mg daily continue Entresto (2) Aortic stenosis Current Visit: Yes Status: Acute Plan: moderate on most recent echo, continue to monitor (3) Atrial fibrillation Current Visit: Yes Status: Acute Plan: continue Toprol XL 25 mg daily, uptitrate according to BP and HR Continue Xarelto
[2024-10-11 06:14] LABS: Absolute Basophils 0.1 K/uL (0-0.5); Absolute Eosinophils 0.4 K/uL (0-0.5); Absolute Lymphocytes (CBC) 1.9 K/uL (0.7-4.9); Absolute Monocytes 1.8 K/uL (0.1-1.3); Absolute Neutrophil 9.1 K/uL (1.8-8.0); Basophils % 1.1 % (0-1.3); Eosinophils % 3.2 % (0-4.4); Hematocrit 25.4 % (39.6-49.0); Hemoglobin 8.2 g/dL (13.6-17.9); Lymphocytes % 14.4 % (15.3-44.8); MCH 31.5 pg (27.0-35.0); MCHC 32.1 g/dL (32.0-36.0); MCV 98.2 fL (80-100); MPV 8.5 fL (7.6-11.3); Monocytes % 13.1 % (3.3-12.3); Neutrophils % 68.2 % (41.7-73.7); Nucleated Red Blood Cells % 0.2 % (0-0); Platelets 483 thou/uL (152-406); RBC Red Blood Cell Count 2.59 M/uL (4.33-5.43); Red Cell Distribution Width 16.7 % (12.1-15.2)
[2024-10-11 06:24] LABS: Albumin 2.8 g/dL (3.4-5.0); Albumin/Globulin Ratio 0.8 (1.1-1.8); Alkaline Phosphatase 142 U/L (45-117); Anion Gap 3.9 mEq/L (5.0-15.0); BUN Blood Urea Nitrogen 16 mg/dL (7-18); Bicarbonate 36 mEq/L (21-32); Bilirubin Total 0.8 mg/dL (0.2-1.0); Globulin 3.5 g/dL (2.3-3.5); Glomerular Filtration Rate 82 ml/min (=/>90); Glucose Level 121 mg/dL (74-106); Potassium 3.9 mEq/L (3.5-5.1); Protein, Total 6.3 g/dL (6.4-8.2); Sodium Level 139 mEq/L (136-145)
[2024-10-11] MEDS: METOPROLOL XL 25 MG TAB PO SCH (06:24)
[2024-10-11 06:26] LABS: ALT/SGPT < 14 U/L (16-61); AST/SGOT < 10 U/L (15-37)
--- NOTE | 2024-10-11 09:14 | P.PN ---
Subjective Date of Service: 10/11/24 Primary Care Provider: Laquita Chief Complaint: Acute on chronic heart failure Subjective: No new changes Review of Systems 10-point ROS is otherwise unremarkable Physical Examination - Vital Signs Temperature: 98.3 F Blood Pressure: 98/51 Pulse: 83 Respirations: 20 Pulse Ox (%): 93 - Physical Exam General: Alert, In no apparent distress HEENT: Atraumatic, PERRLA, EOMI Neck: Supple, JVD not distended Respiratory: Clear to auscultation bilaterally, Normal air movement Cardiovascular: Regular rate/rhythm, Normal S1 S2 Gastrointestinal: Normal bowel sounds, No tenderness Musculoskeletal: No tenderness Integumentary: No rashes Neurological: Normal speech, Normal tone, Normal affect Lymphatics: No axilla or inguinal lymphadenopathy Assessment And Plan - Current Problems (Diagnosis) (1) Acute systolic (congestive) heart failure Current Visit: No Status: Acute Plan: will continue entresto. Add lasix. consult to Dr. Brown. he has had an echocardiogram in the last 6 months 12.11 some low blood pressure this morning. Asymptomatic. euvolemic. Will d/c the lasix. If asymptomatic this afternoon we can discharge. (2) Type 2 diabetes mellitus without complications Current Visit: No Status: Acute Plan: will recheck his a1c Qualifiers: Diabetes mellitus senior care insulin use: without long term care pharmacist use (3) Atrial fibrillation with rapid ventricular response Onset Date: 05/18/17 Current Visit: No Status: Chronic Plan: hold metoprol. he has a low rate of 54 in the er. Will continue xarelto Discharge Plan: Home Plan to discharge in: 24 Hours - Code Status/Comfort Care Code Status Assessed: No Physician Review: Patient Assessed, Agree with Above Assessment and Plan Critical Care: No Time Spent Managing PTS Care (In Minutes): 20
[2024-10-11] MEDS: LEVALBUTEROL 1.25 MG/3 ML NEB NEB ONE (13:33)
--- NOTE | 2024-10-11 16:58 | P.CNS ---
Date of Consult: 10/11/24 Primary Care Provider: Laquita Chief Complaint: R sided effusion and dyspnea History of Present Illness: Pt is 74 admitted with acute on chronic dyspnea. LE edema worse over the week. Denies chest pain, cough or fever. Hx fo CHF Quit smoking 2 yrs ago Allergies No Known Allergies Allergy (Unverified 06/21/23 10:54) Home Medications: Metoprolol Succinate [Toprol Xl*] 50 mg PO BID 6AM 6PM #60 tab 05/21/17 Rivaroxaban [Xarelto] 20 mg PO DAILY #30 tab 05/21/17 Digoxin [Lanoxin] 0.125 mg PO DAILY 06/21/23 Furosemide [Lasix] 40 mg PO BID 06/21/23 Rosuvastatin [Crestor] 20 mg PO 1X 06/21/23 Sacubitril/Valsartan [Entresto 97 mg-103 mg Tablet] 1 tab PO BID 06/21/23 - Past Medical/Surgical History Diabetic: Yes -: AFIB -: CHF -: NIDDM -: HTN -: tonsillectomy -: adenoidectomy - Social History Smoking Status: Current every day smoker Alcohol use: No CD- Drugs: No Caffeine use: Yes Place of Residence: Home Review of Systems 10-point ROS is otherwise unremarkable General: Weakness Respiratory: Shortness of Breath Cardiovascular: Edema Physical Examination Temp Pulse Resp BP Pulse Ox 97.9 F 88 20 127/58 L 95 10/11/24 16:00 10/11/24 16:00 10/11/24 16:00 10/11/24 16:00 10/11/24 16:00 General: Alert, Oriented x3 Neck: Supple Respiratory: Diminished (R base ) Cardiovascular: No edema, Regular rate/rhythm, Normal S1 S2, Edema (2 plus) Gastrointestinal: Normal bowel sounds, Soft and benign Musculoskeletal: No clubbing, Swelling - Problems (1) Pleural effusion Current Visit: Yes Status: Acute Plan: Age 74 AW dyspnea and R sided effusion. Hx of CHF, BNP low LE edema [address] scan reviewed. Mild normocytic anemia. Normal WBC. plan Bialt decubitus of chest, US of chest possible thoracentesis. DDx malignant effusion No PE (2) Other nonspecific abnormal finding of lung field Current Visit: Yes Status: Acute Plan: LLL peripheral SPN 1.3 cm adjacent to pleural Smooth wel defined borders. Evaluated as outpatient need PFT, poss PET, Sotum cytology
--- NOTE | 2024-10-11 17:38 | RAD REPORT ---
EXAMINATION: Chest Lateral Decubitus CLINICAL INDICATION: R effusion RIGHT TECHNIQUE: 2 view decubitus radiographs of the chest were performed. COMPARISON: No prior exam. FINDINGS: Decubitus views of the chest demonstrate moderate layering right pleural effusion measuring mass by 6 cm in thickness.
[2024-10-11] MEDS: FUROSEMIDE 40 MG TABLET PO SCH (17:41)
[2024-10-11] MEDS: IPRATROPIUM BROM 0.5MG/2.5ML NEB PRN (19:30)
[2024-10-11] MEDS: ARFORMOTEROL TARTRATE 15 MCG/2 ML VIAL.NEB NEB SCH (19:43)
[2024-10-11] MEDS: SPIRONOLACTONE 25 MG TABLET PO SCH (21:13)
[2024-10-11] MEDS: DULERA 100/5 (MOMETASONE/FORMOTEROL) INHALER IH SCH (21:13)
[2024-10-12 06:33] LABS: Absolute Basophils 0.1 K/uL (0-0.5); Absolute Eosinophils 0.3 K/uL (0-0.5); Absolute Lymphocytes (CBC) 1.4 K/uL (0.7-4.9); Absolute Monocytes 1.5 K/uL (0.1-1.3); Basophils % 0.8 % (0-1.3); Hematocrit 25.5 % (39.6-49.0); Hemoglobin 8.1 g/dL (13.6-17.9); Lymphocytes % 12.4 % (15.3-44.8); MCH 31.2 pg (27.0-35.0); MCHC 31.7 g/dL (32.0-36.0); MCV 98.5 fL (80-100); MPV 8.6 fL (7.6-11.3); Monocytes % 13.5 % (3.3-12.3); Neutrophils % 70.3 % (41.7-73.7); Nucleated Red Blood Cells % 0.1 % (0-0); Platelets 482 thou/uL (152-406); RBC Red Blood Cell Count 2.59 M/uL (4.33-5.43); Red Cell Distribution Width 16.3 % (12.1-15.2)
[2024-10-12 06:57] LABS: AST/SGOT 11 U/L (15-37); Albumin 2.9 g/dL (3.4-5.0); Albumin/Globulin Ratio 0.8 (1.1-1.8); Alkaline Phosphatase 136 U/L (45-117); Anion Gap 5.4 mEq/L (5.0-15.0); BUN Blood Urea Nitrogen 13 mg/dL (7-18); Bicarbonate 33 mEq/L (21-32); Bilirubin Total 0.9 mg/dL (0.2-1.0); Globulin 3.7 g/dL (2.3-3.5); Glomerular Filtration Rate 83 ml/min (=/>90); Glucose Level 149 mg/dL (74-106); Potassium 3.4 mEq/L (3.5-5.1); Protein, Total 6.6 g/dL (6.4-8.2); Sodium Level 136 mEq/L (136-145)
[2024-10-12 07:03] LABS: ALT/SGPT < 14 U/L (16-61)
[2024-10-12 07:18] VITALS: BMI 26.7
--- NOTE | 2024-10-12 07:51 | RAD REPORT ---
EXAMINATION: Chest CLINICAL INDICATION: Right effusion assess for thoracentesis COMPARISON: Chest radiograph 10/09/2024 and 10/11/2024. TECHNIQUE: Sonographic grayscale and color flow imaging of the chest. FINDINGS: Right lung: Moderate to large pleural effusion this region was marked for eventual thoracentesis. No evidence of loculation. IMPRESSION: 1. Moderate to large right pleural effusion.
--- NOTE | 2024-10-12 08:59 | P.PN ---
Subjective Date of Service: 10/12/24 Primary Care Provider: Laquita Chief Complaint: R sided effusion and dyspnea Subjective: Improving Review of Systems 10-point ROS is otherwise unremarkable Physical Examination - Vital Signs Temperature: 97.7 F Blood Pressure: 140/67 Pulse: 86 Respirations: 20 Pulse Ox (%): 94 - Physical Exam General: Alert, In no apparent distress HEENT: Atraumatic, PERRLA, EOMI Neck: Supple, JVD not distended Respiratory: Clear to auscultation bilaterally, Normal air movement Cardiovascular: Regular rate/rhythm, Normal S1 S2 Gastrointestinal: Normal bowel sounds, No tenderness Musculoskeletal: No tenderness Integumentary: No rashes Neurological: Normal speech, Normal tone, Normal affect Lymphatics: No axilla or inguinal lymphadenopathy Assessment And Plan - Current Problems (Diagnosis) (1) Acute systolic (congestive) heart failure Current Visit: No Status: Acute Plan: will continue entresto. Add lasix. consult to Dr. Brown. he has had an echocardiogram in the last 6 months 12.11 some low blood pressure this morning. Asymptomatic. euvolemic. Will d/c the lasix. If asymptomatic this afternoon we can discharge. (2) Type 2 diabetes mellitus without complications Current Visit: No Status: Acute Plan: will recheck his a1c Qualifiers: Diabetes mellitus jail insulin use: without terminal supervisor use (3) Atrial fibrillation with rapid ventricular response Onset Date: 05/18/17 Current Visit: No Status: Chronic Plan: hold metoprol. he has a low rate of 54 in the er. Will continue xarelto (4) Pleural effusion Current Visit: Yes Status: Acute Plan: Patient seen by Dr. Proctor. He still does have a pleural effusion. Possible not from chf. Considering the mass possible malignant in orgin. Dr. Proctor is considering pleuracentesis Discharge Plan: Home Plan to discharge in: 48 Hours - Code Status/Comfort Care Code Status Assessed: No Physician Review: Patient Assessed, Agree with Above Assessment and Plan Critical Care: No Time Spent Managing PTS Care (In Minutes): 25
--- NOTE | 2024-10-12 11:30 | P.PN ---
Subjective Date of Service: 10/12/24 Primary Care Provider: Laquita Chief Complaint: R sided effusion and dyspnea Subjective: No new changes, No C/O voiced, Tolerating diet, Ambulating, Improving Review of Systems 10-point ROS is otherwise unremarkable Physical Examination - Vital Signs Temperature: 97.7 F Blood Pressure: 140/67 Pulse: 86 Respirations: 20 Pulse Ox (%): 94 - Physical Exam General: Alert, In no apparent distress HEENT: Atraumatic, PERRLA, EOMI Neck: Supple, JVD not distended Respiratory: Clear to auscultation bilaterally, Normal air movement Cardiovascular: Regular rate/rhythm, Normal S1 S2 Gastrointestinal: Normal bowel sounds, No tenderness Musculoskeletal: No tenderness Integumentary: No rashes Neurological: Normal speech, Normal tone, Normal affect Lymphatics: No axilla or inguinal lymphadenopathy - Studies Medications List Reviewed: Yes Assessment And Plan - Current Problems (Diagnosis) (1) Acute on chronic diastolic heart failure Current Visit: Yes Status: Acute Plan: Patient most recent echo in clinic shows EF 55%, grade 2 DD, moderate continue Lasix 40 mg po daily Monitor input and output and electrolytes. continue Toprol XL 25 mg daily continue Entresto continue spironlactone (2) Aortic stenosis Current Visit: Yes Status: Acute Plan: moderate on most recent echo, continue to monitor (3) Atrial fibrillation Current Visit: Yes Status: Acute Plan: continue Toprol XL 25 mg daily, uptitrate according to BP and HR Continue Xarelto Physician Review: Patient Assessed, Agree with Above Assessment and Plan
[2024-10-13 06:06] LABS: PT Prothrombin Time 14.8 SECONDS (9.4-12.5); Protime INR 1.33
[2024-10-13 07:33] VITALS: O2SAT 94
--- NOTE | 2024-10-13 08:54 | RAD REPORT ---
Procedure: Chest Single View HISTORY: Right thoracentesis FINDINGS: A pneumothorax is not present status post right thoracentesis
[2024-10-13 10:19] LABS: Tube # SINGLE
[2024-10-13 10:20] LABS: Body Fluid Source PLEURAL; Color of fluid Orange (COLORLESS)
[2024-10-13 10:21] LABS: Appearance VERY TURBID (CLEAR); Body Fluid Lymphocytes 74 %; Body Fluid WBC 852 /mm^3; Fluid Total Cells Count 100
--- NOTE | 2024-10-13 10:29 | P.DS ---
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 He has a history of atrial fib and chf with EF of 25- 35% he has been having swelling of his lower extremities and orthopnea of the legs for the past week. He thought of calling on Wednesday. Decided to come to the ER today. He was found to have pleural effusion and decision was made to admit the patient for diuresis Hospital Course: Patient was admitted for acute chf. respond well to diuresis. He had some hypoxia. The patient's came and stated he has chronic exercise intolerance. Walking 50feet. The patient Does have a significant smoking history. He was seen by Dr. Proctor. He did have pleural effusion and a mass. Pleurocentesis was performed. The results are not back. We will discharge the patient today. Have him follow up with Dr. Proctor and myself. Thank you for allowing us to take part in his care. Vital Signs/Physical Exam: Temp Pulse Resp BP Pulse Ox 98.1 F 81 16 114/53 L 91 10/13/24 08:00 10/13/24 08:54 10/13/24 08:00 10/13/24 08:54 10/13/24 08:00 General: Alert, In no apparent distress HEENT: Atraumatic, PERRLA, EOMI Neck: Supple, JVD not distended Respiratory: Clear to auscultation bilaterally, Normal air movement Cardiovascular: Regular rate/rhythm, Normal S1 S2 Gastrointestinal: Normal bowel sounds, No tenderness Musculoskeletal: No tenderness Integumentary: No rashes Neurological: Normal speech, Normal tone, Normal affect Lymphatics: No axilla or inguinal lymphadenopathy Laboratory Data at Discharge: WBC 11.40 thou/uL (4.3-10.9) H 10/12/24 06:08 Hgb 8.1 g/dL (13.6-17.9) L 10/12/24 06:08 Hct 25.5 % (39.6-49.0) L 10/12/24 06:08 Plt Count 482 thou/uL (152-406) H 10/12/24 06:08 PT 14.8 SECONDS (9.4-12.5) H 10/13/24 05:43 INR 1.33 10/13/24 05:43 APTT 50.3 SECONDS (24.3-36.9) H 10/09/24 09:25 Sodium 136 mEq/L (136-145) 10/12/24 06:08 Potassium 3.4 mEq/L (3.5-5.1) L 10/12/24 06:08 BUN 13 mg/dL (7-18) 10/12/24 06:08 Creatinine 0.96 mg/dL (0.70-1.30) 10/12/24 06:08 Glucose 149 mg/dL (74-106) H 10/12/24 06:08 Magnesium 2.3 mg/dL (1.6-2.4) 10/10/24 05:49 Total Bilirubin 0.9 mg/dL (0.2-1.0) 10/12/24 06:08 AST 11 U/L (15-37) L 10/12/24 06:08 ALT < 14 U/L (16-61) L 10/12/24 06:08 Alkaline Phosphatase 136 U/L (45-117) H 10/12/24 06:08 Home Medications: Metoprolol Succinate [Toprol Xl*] 50 mg PO BID 6AM 6PM #60 tab 05/21/17 Rivaroxaban [Xarelto*] 20 mg PO DAILY #30 tab 05/21/17 Digoxin [Lanoxin*] 0.125 mg PO DAILY 06/21/23 Furosemide [Lasix] 40 mg PO BID 06/21/23 Rosuvastatin [Crestor*] 20 mg PO 1X 06/21/23 Sacubitril/Valsartan [Entresto 97 mg-103 mg Tablet] 1 tab PO BID 06/21/23 Fluticasone Propion/Salmeterol [Advair Hfa 115-21 Mcg Inhaler] 8 gm IH BID 90 Days #180 inhaler 10/13/24 Spironolactone [Aldactone*] 25 mg PO DAILY 90 Days #90 tab 10/13/24 New Medications: Fluticasone Propion/Salmeterol [Advair Hfa 115-21 Mcg Inhaler] 8 gm IH BID 90 Days #180 inhaler Spironolactone [Aldactone*] 25 mg PO DAILY 90 Days #90 tab Diet: AHA Activity: Ad josh Followup: Mo Coelho MD [Primary Care Provider] - 1 Week Pardeep Brown MD [ACTIVE - CAN ADMIT] - 1-2 Weeks OLGA COLLINS [OUTSIDE PHYSICIAN] - 1 Week Physician Review: Patient Assessed, Agree with Above Assessment and Plan Time spent managing pt's care (in minutes): 30
--- NOTE | 2024-10-13 11:26 | RAD REPORT ---
PROCEDURE: ULTRASOUND GUIDED THORACENTESIS CLINICAL INDICATION: Right Pleural effusion TECHNIQUE: The risks, benefits and alternatives to the procedure explained to the patient and informed consent o btained. The skin and deeper tissues anesthetized with lidocaine. Under sonographic guidance an 8.3 [place]bourgish catheter was advanced into the right pleural space. 1.5 L of yellow fluid removed. Fluid sent to lab. Patient experienced no immediate consultation. IMPRESSION: Thoracentesis
[2024-10-13 12:30] VITALS: BP 95/51; TEMP 98.2
--- NOTE | 2024-10-13 16:02 | EKG ---
Test Date: 2024-10-09 Test Time: 10:22:34 Sales Training Coordinator: MARGI MEASUREMENT RESULTS: Intervals: Rate: 86 DC: QRSD: 82 QT: 374 QTc: 447 Cactus: P: DC: QRS: 84 T: -85 INTERPRETIVE STATEMENTS: Atrial fibrillation with premature ventricular or aberrantly conducted complexes Septal infarct, age undetermined ST & T wave abnormality, consider inferolateral ischemia Abnormal ECG Compared to ECG 06/21/2023 09:18:00 Ventricular premature complex(es) now present Myocardial infarct finding now present ST (T wave) deviation still present Possible ischemia still present Electronically Signed On 10-13-24 15:54:23 INDUSTRIAL THERAPIST by Pardeep Brown
--- NOTE | 2024-10-19 14:10 | ECHO ---
HEIGHT: 5 ft 11 in WEIGHT: 191 lb 0 oz DATE OF STUDY: 10/12/[address]: Eduard Roman MD 2-DIMENSIONAL: YES M.MODE: YES DOPPLER: YES COLOR FLOW: YES TDS: NO PORTABLE: YES DEFINITY: NO BUBBLE STUDY: NO DIAGNOSIS: RULE OUT CONGESTIVE HEART FAILURE CARDIAC HISTORY: CATHERIZATION: SURGERY: PROSTHETIC VALVE: PACEMAKER: MEASUREMENTS (cm) DIASTOLIC (NORMALS) SYSTOLIC (NORMALS) IVSd 1.2 (0.6-1.2) LA Diam 4.5 (1.9-4.0) LVEF 55-60% LVIDd 4.3 (3.5-5.7) LVIDs 3.1 (2.0-3.5) %FS 28% LVPWd 1.2 (0.6-1.2) Ao Diam 3.1 (2.0-3.7) 2 DIMENSIONAL ASSESSMENT: RIGHT ATRIUM: NORMAL LEFT ATRIUM: MODERATELY DILATED RIGHT VENTRICLE: NORMAL LEFT VENTRICLE: NORMAL TRICUSPID VALVE: MILD TRICUSPID REGURGITATION MITRAL VALVE: NORMAL PULMONIC VALVE: NORMAL AORTIC VALVE: CALCIFIED PERICARDIAL EFFUSION: NONE AORTIC ROOT: NORMAL LEFT VENTRICULAR WALL MOTION: NORMAL. DOPPLER/COLOR FLOW: NORMAL. COMMENTS: 1. NORMAL LEFT VENTRICULAR SYSTOLIC FUNCTION. LEFT VENTRICULAR EJECTION FRACTION 55-60%. NORMAL WALL MOTION. 2. NORMAL DIASTOLIC FUNCTION. 3. MILDLY ELEVATED FILLING PRESSURE. RIGHT ATRIAL PRESSURE 5-10 mmHg. 4. SEVERE AORTIC STENOSIS. AORTIC VALVE AREA 0.9 cm2. MEAN GRADIENT 39 mmHg. TECHNOLOGIST: PARIS BARRERA [facility]
[2024-10-20 09:23] LABS: CHOLESTEROL, PLEURAL FLUID REPORT; LD, PLEURAL FLUID 34 U/L; TOTAL PROTEIN, PLEURAL FLUID <3.0 g/dL
== END 2024-10-13 14:29 | disposition home or self-care (01) | DRG 291 ==
LOC: ER 09:05 → ERHOLD 13:15 → 2ND 16:12
PROVIDERS: ADMIT Internal Medicine; ATTEND Internal Medicine
PROC: 0W993ZX Drainage of Right Pleural Cavity, Percutaneous Approach, Diagnostic (ICD-10-PCS; principal; 2024-10-13)
DX: I11.0 Hypertensive heart disease with heart failure (principal); I50.23 Acute on chronic systolic (congestive) heart failure; I48.20 Chronic atrial fibrillation, unspecified; J91.8 Pleural effusion in other conditions classified elsewhere; E11.9 Type 2 diabetes mellitus without complications; D50.9 Iron deficiency anemia, unspecified; I35.0 Nonrheumatic aortic (valve) stenosis; J98.4 Other disorders of lung; Z90.81 Acquired absence of spleen; Z79.01 Long term (current) use of anticoagulants; Z79.899 Other long term (current) drug therapy; Z87.891 Personal history of nicotine dependence
CPT/HCPCS: 32555; 36415; 71045; 71046; 71275; 76604; 80048; 80053; 80076; 81003; 82945; 82947; 83036; 83605; 83615; 83735; 83880; 84157; 84311; 84443; 84484; 85025; 85610; 85730; 87015; 87040; 87102; 87116; 87205; 87206; 88108; 88305; 89050; 93005; 93306; 93970; 94640; 99285; J1940; J3535; J7605; J7613; J7614; J7644; Q9967

== ENCOUNTER 2024-11-27 10:31 | Emergency (ER) | payer OTHER ==
--- NOTE | 2024-11-27 11:43 | RAD REPORT ---
EXAMINATION: ONE VIEW CHEST XR CLINICAL INDICATION: COUGH TECHNIQUE: Frontal chest projection is submitted. Examination is limited by patient positioning and t echnique. COMPARISON: 10/19/2024 FINDINGS: Moderate right pleural effusion noted. Moderate bilateral pulmonary opacities are seen, greater on th e right possibly representing pneumonia or pulmonary edema. The heart is moderately enlarged. No displaced fractures identified. Aortic atherosclerosis.
[2024-11-27] MEDS ORDERED: PANTOPRAZOLE 40 MG INJ ONE (11:45)
[2024-11-27] MEDS ORDERED: NA CHLORIDE 0.9% 500 ML ONE (11:46)
[2024-11-27] MEDS ORDERED: NA CHLORIDE 0.9% 1,000 ML ONE (11:46)
[2024-11-27] MEDS ORDERED: PANTOPRAZOLE INJ 80 MG in NA CHLORIDE 0.9% 250 ML IV ONE (12:00)
[2024-11-27 12:14] LABS: Absolute Basophils 0.1 K/uL (0-0.5); Absolute Eosinophils 0.1 K/uL (0-0.5); Absolute Lymphocytes (CBC) 1.4 K/uL (0.7-4.9); Absolute Monocytes 1.8 K/uL (0.1-1.3); Basophils % 0.6 % (0-1.3); Eosinophils % 0.4 % (0-4.4); Hematocrit 17.6 % (39.6-49.0); Lymphocytes % 8.5 % (15.3-44.8); MCH 26.8 pg (27.0-35.0); MCHC 30.1 g/dL (32.0-36.0); MCV 88.9 fL (80-100); MPV 8.6 fL (7.6-11.3); Monocytes % 11.3 % (3.3-12.3); Neutrophils % 79.2 % (41.7-73.7); Nucleated RBC Absolute Count 0.2 (0-0); Platelets 806 thou/uL (152-406); RBC Red Blood Cell Count 1.98 M/uL (4.33-5.43); Red Cell Distribution Width 19.4 % (12.1-15.2)
[2024-11-27 12:16] LABS: Hemoglobin 5.3 g/dL (13.6-17.9)
[2024-11-27 12:18] LABS: PT Prothrombin Time 42.4 SECONDS (9.4-12.5); Protime INR 4.09
--- NOTE | 2024-11-27 12:47 | EDPHYS ---
Physician Documentation [facility] Name: Tyler Jay Age: 74 yrs Sex: Male : 1950 Arrival Date: 11/27/2024 Time: 10:31 Bed 8 Private MD: MARVEL Physician Ricardo Laird HPI: 11/27 11:00 This 74 yrs old Male presents to ER via Unassigned with complaints of General sunil Weakness. 11:00 The patient has shortness of breath with light activity. Onset: The symptoms/episode sunil began/occurred 2 day(s) ago. Duration: The symptoms are continuous, and are steadily getting worse. The patient's shortness of breath is aggravated by coughing, exertion, light activity, supine position. The patient presents to the emergency department with rectal bleeding, states black stools. Abdominal pain: none is appreciated. Modifying factors: The symptoms are alleviated by remaining still, the symptoms are aggravated by nothing. weak, hx of aortic srenosis. Context: occurred at home, occurred while the patient was unk. Modifying factors: The symptoms are alleviated by lying down, the symptoms are aggravated by standing up, changing position. Associated signs and symptoms: Pertinent positives: nausea. Severity of symptoms: At their worst the symptoms were moderate in the emergency department the symptoms are unchanged. Historical: - Allergies: 11:02 No Known Allergies; kb3 - Home Meds: 11:13 Entresto 97-103 mg Oral Tablet 1 tab once [Active]; furosemide 20 mg oral tablet 1 tab kb3 daily [Active]; Xarelto 20 mg Oral tab 1 tab once daily [Active]; Lopressor 50 mg oral tablet 2 times per day [Active]; rosuvastatin 5 mg oral tablet 1 tab daily [Active]; digoxin 125 mcg (0.125 mg) Oral tablet daily [Active]; montelukast 10 mg oral tablet 1 tab daily [Active]; Advair Diskus 100-50 mcg/dose Inhl Blister, With Inhalation Device 1 inhalation 2 times per day [Active]; amiodarone 200 mg Oral tablet 1 tab daily [Active]; methimazole 10 mg Oral tablet 1 tab daily [Active]; carvedilol 6.25 mg oral tablet 1 tab 2 times per day [Active]; clopidogrel 75 mg oral tablet 1 tab daily [Active]; Spironolactone Oral daily [Active]; - PMHx: 11:02 arrhythmia; CHF; Hypertension; kb3 - 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 - Infectious Disease History:: Denies. - Social history:: Smoking status: Patient denies any tobacco usage or history of. ROS: 11:08 Constitutional: Negative for fever, chills, and weight loss, Eyes: Negative for injury, sunil pain, redness, and discharge, ENT: Negative for injury, pain, and discharge, Neck: Negative for injury, pain, and swelling, Cardiovascular: Negative for chest pain, palpitations, and edema, Respiratory: Negative for shortness of breath, cough, wheezing, and pleuritic chest pain, Back: Negative for injury and pain, : Negative for injury, bleeding, discharge, and swelling, MS/Extremity: Negative for injury and deformity, Neuro: Negative for headache, weakness, numbness, tingling, and seizure, Psych: Negative for depression, anxiety, suicide ideation, homicidal ideation, and hallucinations, Allergy/Immunology: Negative for hives, rash, and allergies, Endocrine: Negative for neck swelling, polydipsia, polyuria, polyphagia, and marked weight changes, Hematologic/Lymphatic: Negative for swollen nodes, abnormal bleeding, and unusual bruising, 11:08 Abdomen/GI: Positive for rectal bleeding, 11:08 Skin: Positive for pallor, Exam: 11:08 Constitutional: This is a well developed, well nourished patient who is awake, alert, sunil and in no acute distress. Head/Face: Normocephalic, atraumatic. Eyes: Pupils equal round and reactive to light, extra-ocular motions intact. Lids and lashes normal. Conjunctiva and sclera are non-icteric and not injected. Cornea within normal limits. Periorbital areas with no swelling, redness, or edema. ENT: Nares patent. No nasal discharge, no septal abnormalities noted. Tympanic membranes are normal and external auditory canals are clear. Oropharynx with no redness, swelling, or masses, exudates, or evidence of obstruction, uvula midline. Mucous membranes moist. Neck: Trachea midline, no thyromegaly or masses palpated, and no cervical lymphadenopathy. Supple, full range of motion without nuchal rigidity, or vertebral point tenderness. No Meningismus. Chest/axilla: Normal chest wall appearance and motion. Nontender with no deformity. No lesions are appreciated. Respiratory: Lungs have equal breath sounds bilaterally, clear to auscultation and percussion. No rales, rhonchi or wheezes noted. No increased work of breathing, no retractions or nasal flaring. Abdomen/GI: Soft, non-tender, with normal bowel sounds. No distension or tympany. No guarding or rebound. No evidence of tenderness throughout. Back: No spinal tenderness. No costovertebral tenderness. Full range of motion. Male : Normal genitalia with no discharge or lesions. MS/ Extremity: Pulses equal, no cyanosis. Neurovascular intact. Full, normal range of motion., bilateral aka Neuro: Awake and alert, GCS 15, oriented to person, place, time, and situation. Cranial nerves II-XII grossly intact. Motor strength 5/5 in all extremities. Sensory grossly intact. Cerebellar exam normal. Normal gait. Psych: Awake, alert, with orientation to person, place and time. Behavior, mood, and affect are within normal limits. 11:08 Cardiovascular: Rhythm: regular, Pulses: Pulses are 4+ in bilateral radial, brachial, femoral, popliteal, posterior tibial and and dorsalis pedis arteries.. Heart sounds: murmur, crescendo - decrescendo, grade 3 over 6, heard in the aortic area, Edema: 2+ edema to level of left midcalf and right midcalf, JVD: is not appreciated, 11:08 Musculoskeletal/extremity: ROM: intact in all extremities, Circulation is intact in all extremities. Sensation intact. Compartment Syndrome exam of affected extremity: is normal. DVT Exam: No signs of deep vein thrombosis. no pain, no tenderness, negative Homans' sign noted on exam, no appreciated bluish discoloration, no erythema, no increased warmth, swelling, that is mild, of the right leg and left leg, Vital Signs: 10:58 BP 77 / 39; Pulse 67; Resp 19; Temp 97.6; Pulse Ox 99% on 3 lpm NC; Weight 81.65 kg; kb3 Height 6 ft. 0 in. ; Pain 0/10; 13:00 BP 86 / 67; Pulse 59; Resp 23; Pulse Ox 96% ; bp 15:00 BP 87 / 36; Pulse 95; Resp 28; Temp 97.3; Pulse Ox 97% ; bp 17:00 BP 81 / 52; Pulse 76; Resp 11; Pulse Ox 99% ; bp 19:22 BP 94 / 80; Pulse 53; Resp 18 S; Pulse Ox 98% on R/A; br2 21:00 BP 110 / 45; Pulse 71; Resp 20; Pulse Ox 99% ; cp4 10:58 Body Mass Index 24.41 (81.65 kg, 182.88 cm) kb3 10:58 Pain Scale: Adult kb3 MDM: 10:56 Medical Screening Exam initiated sunil 11:10 Differential diagnosis: Anemia Anxiety Reaction asthma, Bronchitis CHF exacerbation, sunil gastritis, diverticulitis, hemorrhagic shock, varices, Myocardial Infarction pneumonia, Pneumothorax Psychogenic pulmonary edema, reactive airway disease, Sepsis Unstable Angina. Antibiotic administration: Not indicated. Differential Diagnosis altered mental status, sepsis, flu. Differential diagnosis: cardiac arrhythmia, generalized weakness, GI bleed, hypovolemia, idiopathic dizziness, sepsis, syncope, TIA, vertigo. Immunization status: Pneumococcal vaccine: within last 5 years. Influenza vaccine: Not up to date. Data reviewed: vital signs, nurses notes, EMS record, lab test result(s), EKG, radiologic studies, plain films. Consideration of Admission/Observation Escalation of care including admission/observation considered. I considered the following discharge prescriptions or medication management in the emergency department Medications were administered in the Emergency Department. See MAR. Independent interpretation of the following test(s) in the Emergency Department EKG: See my EKG interpretation above. Test considered but Not performed: Ultrasound no abd us , no echo. 11/27 10:59 Order name: Basic Metabolic Panel; Complete Time: 14: [facility] 11/27 10:59 Order name: CBC with Diff; Complete Time: 12:24 [facility] 11/27 10:59 Order name: LFT's; Complete Time: 14:11/27 10:59 Order name: Magnesium; Complete Time: 14:11/27 10:59 Order name: NT PRO-BNP; Complete Time: 14: [facility] 11/27 10:59 Order name: PT-INR; Complete Time: 12:24 11/27 10:59 Order name: Troponin HS; Complete Time: 14: 11/27 10:59 Order name: Type And Screen 11/27 10:59 Order name: Lipase; Complete Time: 14:07 [facility] 11/27 10:59 Order name: Digoxin; Complete Time: 14:07 [facility] 11/27 10:59 Order name: Urinalysis w/ reflexes; Complete Time: 14:07 [facility] 11/27 11:52 Order name: Blood Culture Adult (2) 11/27 11:52 Order name: Lactate w/ 2H reflex if indic.; Complete Time: 14:07 [facility] 11/27 12:56 Order name: Packed RBC Leukored [facility] 11/27 13:30 Order name: ABO/RH no charge; Complete Time: 14:07 [facility] 11/27 20:13 Order name: CBC with Diff 11/27 10:59 Order name: XRAY Chest (1 view); Complete Time: 11:51 11/27 10:59 Order name: Cardiac monitoring; Complete Time: 11:41 11/27 10:59 Order name: EKG - Nurse/Tech; Complete Time: 11:42 11/27 10:59 Order name: IV Saline Lock; Complete Time: 11:53 11/27 10:59 Order name: Labs collected and sent; Complete Time: 11:53 11/27 10:59 Order name: O2 Per Protocol; Complete Time: 11:41 11/27 10:59 Order name: O2 Sat Monitoring; Complete Time: 11:41 11/27 10:59 Order name: IV Saline Lock - Large Bore; Complete Time: 11:53 11/27 11:53 Order name: IV Saline Lock - Large Bore; Complete Time: 11:53 11/27 12:24 Order name: Transfuse; Complete Time: 15:29 11/27 12:32 Order name: Barnett; Complete Time: 13:18 11/27 12:32 Order name: Labs - recollect needed: collect abo/rh no charge; Complete Time: 12:50 bd Administered Medications: 11:45 Drug: Pantoprazole IV 8 mg/hr IV at 25 ml/hr continuous; (Standard dilution is 80 mg in bp 250 mL NS) Route: IV; Rate: 25 ml/hr; Site: right wrist; 15:30 Follow up: IV Status: Infusion continued upon transfer bp 11:45 Drug: NS 0.9% IV 1000 ml IV at 125 ml/hr once; to be given as a bolus over 60 minutes bp Route: IV; Rate: 125 ml/hr; Site: right wrist; 15:30 Follow up: IV Status: Infusion continued upon transfer bp 11:53 Drug: Pantoprazole IVP 80 mg IVP once Route: IVP; Site: right wrist; ld1 14:21 Follow up: Response: No adverse reaction bp 11:53 Drug: NS 0.9% IV 500 ml 500 ml IV at 1 bolus once; to be given as a bolus over 30 ld1 minutes Volume: 500 ml; Route: IV; Rate: 1 bolus; Site: right antecubital; 14:22 Follow up: IV Status: Completed infusion bp 12:15 Drug: NS 0.9% IV 500 ml 500 ml IV at 1 bolus once; to be given as a bolus over 30 bp minutes Volume: 500 ml; Route: IV; Rate: 1 bolus; Site: right wrist; 15:30 Follow up: IV Status: Completed infusion bp 12:30 Drug: Piperacillin-Tazobactam IVPB 3.375 grams IVPB once over 60 mins; (mix in NS 100 bp mL) Route: IVPB; Infused Over: 60 mins; Site: right wrist; 15:30 Follow up: IV Status: Completed infusion bp 13:15 Drug: Kcentra IV 500 unit 500 unit 35 units/kg IV at per protocol once; not to exceed bp 3,500 units initiate at 0.12 mL/kg/min (or 3 units/kg/min) not to exceed 8.4 mL/min (or 210 units/min) Route: IV; Rate: per protocol; Site: left forearm; 15:30 Follow up: IV Status: Completed infusion bp 20:45 Drug: Piperacillin-Tazobactam IVPB 3.375 grams IVPB once over 60 mins; (mix in NS 100 cp4 mL) Route: IVPB; Infused Over: 60 mins; Site: left forearm; 21:24 Follow up: IV Status: Completed infusion cp4 20:48 Drug: NS 0.9% IV 500 ml 500 ml IV at 1 bolus once; to be given as a bolus over 30 cp4 minutes Volume: 500 ml; Route: IV; Rate: 1 bolus; Site: right wrist; 21:24 Follow up: IV Status: Completed infusion cp4 Disposition Summary: 11/27/24 12:47 Transfer Ordered Notes: Reason: Higher level of care sunil Condition: Fair sunil Problem: new sunil Symptoms: have improved sunil Transfer Location: Other Acute Care Facility(11/27/24 20:29) sunil Accepting Physician: TO ICU BED [facility](11/27/24 21:40) cp4 Diagnosis - Nonrheumatic aortic (valve) stenosis - SEVERE sunil - Dyspnea sunil - Pneumonia due to other specified bacteria sunil - Chronic combined systolic (congestive) and diastolic (congestive) heart failure sunil - GI Bleed/ Gastrointestinal hemorrhage, unspecified - UPPER sunil - 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 EDMS EDMS 10:59 10:59 CBC+H.LAB.BRZ ordered. EDMS EDMS 10:59 10:59 HEPATIC FUNCTION+C.LAB.BRZ ordered. EDMS EDMS 10:59 10:59 MAGNESIUM+C.LAB.BRZ ordered. EDMS EDMS 10:59 10:59 PROBNP+C.LAB.BRZ ordered. EDMS EDMS 10:59 10:59 PROTIME (+INR)+COAG.LAB.BRZ ordered. EDMS EDMS 10:59 10:59 Troponin High Sensitivity+C.LAB.BRZ ordered. EDMS EDMS 10:59 10:59 TYPE AND SCREEN+BB.LAB.BRZ ordered. EDMS EDMS 10:59 10:59 LIPASE+C.LAB.BRZ ordered. EDMS EDMS 10:59 10:59 DIGOXIN+C.LAB.BRZ ordered. EDMS EDMS 10:59 10:59 Urinalysis+U.LAB.BRZ ordered. EDMS EDMS 10:59 10:59 Chest Single View+RAD.RAD.BRZ ordered. EDMS EDMS 11:20 11:13 Home Meds: metoprolol tartrate 50 mg Oral Tablet; kb3 kb3 11:53 11:53 BLOOD CULTURE*+BA.LAB.BRZ ordered. EDMS EDMS 11:53 11:53 LACTATE+C.LAB.BRZ ordered. EDMS EDMS 12:33 12:33 BB Add On+BB.LAB.BRZ ordered. EDMS EDMS 13:10 12:47 [place] [facility] [place] sunil 20:13 20:13 CBC+H.LAB.BRZ ordered. EDMS EDMS 20:29 12:47 [facility] sunil sunil 20:29 13:10 [place] [facility] [place] sunil 21:40 20:29 TO ICU BED [facility] sunil cp4
--- NOTE | 2024-11-27 12:47 | ER ---
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 Coronavirus screen: Vaccine status: Patient reports receiving the 2nd dose of the covid vaccine. Client denies travel out of the [place] in the last 14 days. Ebola Screen: Patient negative for fever greater than or equal to 101.5 degrees Fahrenheit, and additional compatible Ebola Virus Disease symptoms Patient denies exposure to infectious person. Patient denies travel to an Ebola-affected area in the 21 days before illness onset. Initial Sepsis Screen: Does the patient meet any 2 criteria? Systolic BP < 90 mmHg. Does the patient have a suspected source of infection? No. Patient's initial sepsis screen is negative. Risk Assessment: Do you want to hurt yourself or someone else? Patient reports no desire to harm self or others. Onset of symptoms is unknown. 10:58 Method Of Arrival: [facility] 10:58 Acuity: ROBBI 2 kb3 Triage Assessment: 11:02 General: Appears ill, Behavior is calm, cooperative. Pain: Denies pain. Neuro: No kb3 deficits noted. Cardiovascular: Reports fatigue, shortness of breath, Denies chest pain. Respiratory: Reports shortness of breath at rest Breath sounds are diminished. GI: Patient currently denies abdominal pain, bloody stool, diarrhea, nausea, vomiting. : Denies burning with urination, inability to void, incontinence, pain urinary frequency. Historical: - Allergies: 11:02 No Known Allergies; kb3 - Home Meds: 11:13 Entresto 97-103 mg Oral Tablet 1 tab once [Active]; furosemide 20 mg oral tablet 1 tab kb3 daily [Active]; Xarelto 20 mg Oral tab 1 tab once daily [Active]; Lopressor 50 mg oral tablet 2 times per day [Active]; rosuvastatin 5 mg oral tablet 1 tab daily [Active]; digoxin 125 mcg (0.125 mg) Oral tablet daily [Active]; montelukast 10 mg oral tablet 1 tab daily [Active]; Advair Diskus 100-50 mcg/dose Inhl Blister, With Inhalation Device 1 inhalation 2 times per day [Active]; amiodarone 200 mg Oral tablet 1 tab daily [Active]; methimazole 10 mg Oral tablet 1 tab daily [Active]; carvedilol 6.25 mg oral tablet 1 tab 2 times per day [Active]; clopidogrel 75 mg oral tablet 1 tab daily [Active]; Spironolactone Oral daily [Active]; - PMHx: 11:02 arrhythmia; CHF; Hypertension; kb3 - 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 - Infectious Disease History:: Denies. - Social history:: Smoking status: Patient denies any tobacco usage or history of. Screenin:00 [facility] ED Fall Risk Assessment (Adult) History of falling in the last 3 months, bp including since admission No falls in past 3 months (0 pts) Confusion or Disorientation No (0 pts) Intoxicated or Sedated No (0 pts) Impaired Gait No (0 pts) Mobility Assist Device Used No (0 pt) Altered Elimination No (0 pt) Score/Fall Risk Level 0 - 2 = Low Risk Oriented to surroundings. Abuse screen: Denies threats or abuse. Denies injuries from another. Nutritional screening: No deficits noted. Tuberculosis screening: No symptoms or risk factors identified. Assessment: 11:10 General: Appears in no apparent distress. ill, slender, Behavior is cooperative, bp appropriate for age, anxious. 15:00 Reassessment: 1ST UNIT PRBC INFUSING. bp 17:15 Reassessment: 2ND UNIT PRBC INFUSING. bp 18:50 Reassessment: 2ND UNIT PRBC COMPLETED. TRANSFER IN PROCESS. bp 19:21 Reassessment: Patient and/or family updated on plan of care and expected duration. Pain br2 level reassessed. Patient is alert, oriented x 3, equal unlabored respirations, skin warm/dry/pink. FAMILY AT BEDSIDE PENDING TRANSFER Patient denies pain at this time. Patient states feeling better. Patient states symptoms have improved. General: Appears in no apparent distress. slender, Behavior is cooperative, appropriate for age. Pain: Denies pain. Neuro: Level of Consciousness is awake, alert, obeys commands, Oriented to person, place, time, situation. 21:00 Reassessment: Patient appears in no apparent distress at this time. Patient and/or cp4 family updated on plan of care and expected duration. Pain level reassessed. Patient is alert, oriented x 3, equal unlabored respirations, skin warm/dry/pink. Vital Signs: 10:58 BP 77 / 39; Pulse 67; Resp 19; Temp 97.6; Pulse Ox 99% on 3 lpm NC; Weight 81.65 kg; kb3 Height 6 ft. 0 in. ; Pain 0/10; 13:00 BP 86 / 67; Pulse 59; Resp 23; Pulse Ox 96% ; bp 15:00 BP 87 / 36; Pulse 95; Resp 28; Temp 97.3; Pulse Ox 97% ; bp 17:00 BP 81 / 52; Pulse 76; Resp 11; Pulse Ox 99% ; bp 19:22 BP 94 / 80; Pulse 53; Resp 18 S; Pulse Ox 98% on R/A; br2 21:00 BP 110 / 45; Pulse 71; Resp 20; Pulse Ox 99% ; cp4 10:58 Body Mass Index 24.41 (81.65 kg, 182.88 cm) kb3 10:58 Pain Scale: Adult kb3 ED Course: 10:52 Patient arrived in ED. rn 10:56 Ricardo Laird MD is Attending Physician. sunil 11:02 Triage completed. kb3 11:02 Arm band placed on right wrist. Patient placed in an exam room, on a stretcher. kb3 11:09 Bisi Ross, JAN is Primary Nurse. bp 11:34 XRAY Chest (1 view) In Process Unspecified. EDMS 11:55 Initial lab(s) drawn, by wi, sent to lab. T\T\S collected, blood band applied to patient. bp Inserted saline lock: 22 gauge in right wrist, using aseptic technique. Blood collected. Flushed with 10 mL NS. 12:44 transfer initiated to [facility] by dr laird. bd 13:12 contacted by Briana Joy with transfer center, no ICU beds at this time but they are bd working on getting a bed, but it may be a while. 13:24 Barnett cath inserted, using sterile technique, 16 Fr., by wi, balloon inflated, to bp gravity drainage, urine specimen collected. returned clear yellow urine. Patient tolerated well. 15:00 Patient has correct armband on for positive identification. Consent for blood and/or bp blood product transfusion explained by staff, signed by spouse. 19:19 initiated transfer with [facility]. At capacity. kmf 19:21 Report received from [facility]. br2 19:25 initiated transfer with [facility] \\ [facility]. kmf 20:21 recalled [facility] - no beds at [facility]. kmf 20:22 initiated transfer with [facility]. pt was accepted by Dr. Levine, Darwin \T\2020. Admin kmf approval given by Karen Zavala \T\2021. [facility] to transfer pt once nurse to nurse is complete. 21:39 Provided Education on: transfer. cp4 21:39 No provider procedures requiring assistance completed. Patient transferred, IV remains cp4 in place. Administered Medications: 11:45 Drug: Pantoprazole IV 8 mg/hr IV at 25 ml/hr continuous; (Standard dilution is 80 mg in bp 250 mL NS) Route: IV; Rate: 25 ml/hr; Site: right wrist; 15:30 Follow up: IV Status: Infusion continued upon transfer bp 11:45 Drug: NS 0.9% IV 1000 ml IV at 125 ml/hr once; to be given as a bolus over 60 minutes bp Route: IV; Rate: 125 ml/hr; Site: right wrist; 15:30 Follow up: IV Status: Infusion continued upon transfer bp 11:53 Drug: Pantoprazole IVP 80 mg IVP once Route: IVP; Site: right wrist; ld1 14:21 Follow up: Response: No adverse reaction bp 11:53 Drug: NS 0.9% IV 500 ml 500 ml IV at 1 bolus once; to be given as a bolus over 30 ld1 minutes Volume: 500 ml; Route: IV; Rate: 1 bolus; Site: right antecubital; 14:22 Follow up: IV Status: Completed infusion bp 12:15 Drug: NS 0.9% IV 500 ml 500 ml IV at 1 bolus once; to be given as a bolus over 30 bp minutes Volume: 500 ml; Route: IV; Rate: 1 bolus; Site: right wrist; 15:30 Follow up: IV Status: Completed infusion bp 12:30 Drug: Piperacillin-Tazobactam IVPB 3.375 grams IVPB once over 60 mins; (mix in NS 100 bp mL) Route: IVPB; Infused Over: 60 mins; Site: right wrist; 15:30 Follow up: IV Status: Completed infusion bp 13:15 Drug: Kcentra IV 500 unit 500 unit 35 units/kg IV at per protocol once; not to exceed bp 3,500 units initiate at 0.12 mL/kg/min (or 3 units/kg/min) not to exceed 8.4 mL/min (or 210 units/min) Route: IV; Rate: per protocol; Site: left forearm; 15:30 Follow up: IV Status: Completed infusion bp 20:45 Drug: Piperacillin-Tazobactam IVPB 3.375 grams IVPB once over 60 mins; (mix in NS 100 cp4 mL) Route: IVPB; Infused Over: 60 mins; Site: left forearm; 21:24 Follow up: IV Status: Completed infusion cp4 20:48 Drug: NS 0.9% IV 500 ml 500 ml IV at 1 bolus once; to be given as a bolus over 30 cp4 minutes Volume: 500 ml; Route: IV; Rate: 1 bolus; Site: right wrist; 21:24 Follow up: IV Status: Completed infusion cp4 Outcome: 12:47 ER care complete, transfer ordered by MD. barber 21:39 Transferred by ground [facility] Transfer form completed. X-rays sent w/ patient. Note: [facility] 21:39 Condition: stable 21:39 Instructed on the need for transfer, 21:40 Patient left the ED. 4 Signatures: Dispatcher [employer] EDMS Jacqui Magaña Corey, MD MD cha Nieto, Roman, MD MD rn Peltier, Brian, RN JAN bp Lindsey Doherty RN RN ld1 Amanda Yañez RN RN Odette Acosta [facility] Delfina Archer kmf Oldham, Nishi, RN RN br2 Corrections: (The following items were deleted from the chart) 11:20 11:13 Home Meds: metoprolol tartrate 50 mg Oral Tablet; kb3 kb3 21: 20:21 recalled [facility] kmf 21:33 21:[address] [facility]. pt was accepted by Darwin Tamez \T\2020. kmf Admin approval given by Karen Zavala \T\2021. [facility] to transfer pt once nurse to nurse is complete kmf
[2024-11-27] MEDS ORDERED: NA CHLORIDE 0.9% 100 ML ONE ×2 (12:53→20:20)
[2024-11-27] MEDS ORDERED: PIPERACIL/TAZO 3.375 GM VIAL IV ONE ×2 (12:54→20:21)
[2024-11-27 13:00] LABS: ALT/SGPT < 14 U/L (16-61); AST/SGOT < 10 U/L (15-37); Albumin 2.6 g/dL (3.4-5.0); Albumin/Globulin Ratio 0.7 (1.1-1.8); Alkaline Phosphatase 122 U/L (45-117); Anion Gap 9.4 mEq/L (5.0-15.0); BUN Blood Urea Nitrogen 67 mg/dL (7-18); Bicarbonate 28 mEq/L (21-32); Bilirubin Direct 0.4 mg/dL (0-0.2); Bilirubin Indirect, Calculated 0.2 mg/dL (0.2-0.8); Bilirubin Total 0.6 mg/dL (0.2-1.0); Globulin 3.8 g/dL (2.3-3.5); Glomerular Filtration Rate 30 ml/min (=/>90); Glucose Level 190 mg/dL (74-106); Lipase 33 U/L (13-75); Magnesium 2.5 mg/dL (1.6-2.4); NT PRO-BNP 1130 pg/mL (<125); Potassium 4.4 mEq/L (3.5-5.1); Protein, Total 6.4 g/dL (6.4-8.2); Sodium Level 138 mEq/L (136-145); Troponin High Sensitivity 13.9 pg/mL (<58.9)
[2024-11-27 13:33] LABS: Specific Gravity 1.014 (1.005-1.030); Sqamous Epithelial <5 /HPF (None Seen); Urine Bacteria <20 /HPF (<20); Urine Bilirubin NEGATIVE (Negative); Urine Blood Negative (Negative); Urine Clarity Extremely Turbid (Clear); Urine Color Light-Yellow (Yellow); Urine Culture Reflex Order NOT NEEDED; Urine Glucose NEGATIVE (Negative); Urine Ketones NEGATIVE (Negative); Urine Microscopic Reflex YN ORDER UMIC; Urine Mucus Slight /HPF (None Seen); Urine Nitrite NEGATIVE (Negative); Urine Protein NEGATIVE (Negative); Urine RBC None Seen /HPF (None Seen); Urine Urobilinogen Normal (Normal); Urine WBC <5 /HPF (<5); Urine WBC Clump Rare /HPF (None Seen)
[2024-11-27] MEDS ORDERED: PROTHROMBIN COMPLEX CONCENTRATE (HUMAN) 500 UNIT VIAL IV ONE (13:45)
[2024-11-27] MEDS ORDERED: NA CHLORIDE 0.9% 250 ML ONE (14:47)
[2024-11-27] MEDS ORDERED: DIPHENHYDRAMINE 50 MG/ML VIAL ONE (17:17)
[2024-11-27 21:04] LABS: Absolute Basophils 0.2 K/uL (0-0.5); Absolute Eosinophils 0.1 K/uL (0-0.5); Absolute Monocytes 2.3 K/uL (0.1-1.3); Basophils % 0.9 % (0-1.3); Eosinophils % 0.4 % (0-4.4); Hematocrit 24.5 % (39.6-49.0); Hemoglobin 7.7 g/dL (13.6-17.9); Lymphocytes % 5.8 % (15.3-44.8); MCH 28.5 pg (27.0-35.0); MCHC 31.3 g/dL (32.0-36.0); MPV 8.3 fL (7.6-11.3); Monocytes % 13.3 % (3.3-12.3); Neutrophils % 79.6 % (41.7-73.7); Nucleated RBC Absolute Count 0.1 (0-0); Nucleated Red Blood Cells % 0.6 % (0-0); Platelets 713 thou/uL (152-406); Red Cell Distribution Width 17.7 % (12.1-15.2)
[2024-11-28 05:43] VITALS: TEMP 97.3
[2024-11-28 05:46] VITALS: BP 110/45; O2SAT 99
--- NOTE | 2024-11-29 12:35 | EKG ---
Test Date: 2024-11-27 Test Time: 11:41:20 Technical Training Coordinator: BP MEASUREMENT RESULTS: Intervals: Rate: 56 OK: QRSD: 88 QT: 506 QTc: 488 [place]: P: OK: QRS: 89 T: -84 INTERPRETIVE STATEMENTS: Atrial fibrillation Septal infarct, age undetermined ST & T wave abnormality, consider inferolateral ischemia or digitalis effect Abnormal ECG Compared to ECG 10/09/2024 10:22:34 Ventricular premature complex(es) no longer present Myocardial infarct finding still present ST (T wave) deviation still present Possible ischemia still present Electronically Signed On 11-29-24 12:31:44 HANDBAG STITCHER by Pardeep Brown
== END 2024-11-27 21:40 ==
LOC: ER 10:31
PROC: 30233N1 Transfusion of Nonautologous Red Blood Cells into Peripheral Vein, Percutaneous Approach (ICD-10-PCS; principal; 2024-11-27)
DX: I35.0 Nonrheumatic aortic (valve) stenosis (principal); J15.8 Pneumonia due to other specified bacteria; J91.8 Pleural effusion in other conditions classified elsewhere; I50.42 Chronic combined systolic (congestive) and diastolic (congestive) heart failure; K92.2 Gastrointestinal hemorrhage, unspecified; D50.0 Iron deficiency anemia secondary to blood loss (chronic); I95.9 Hypotension, unspecified; I48.20 Chronic atrial fibrillation, unspecified; Z79.01 Long term (current) use of anticoagulants; I10 Essential (primary) hypertension
CPT/HCPCS: 87040 ×2; 85025 ×2; 81001; 80048; 36415; 86900; 83735; 86850; 85610; 80162; 86901; 80076; 83605; 86920 ×2; 84484; 83690; 83880; 71045; 36430; J7168; J1200; J2543 ×2; J2470 ×2; P9016 ×2; J7050 ×2; J7040; J7030; 51702; 93005; 99285

== ENCOUNTER 2025-03-23 06:50 | Day surgery (SDC) | payer OTHER ==
[2025-03-22 10:28] LABS: Absolute Basophils 0.1 K/uL (0-0.5); Absolute Eosinophils 0.2 K/uL (0-0.5); Absolute Lymphocytes (CBC) 1.3 K/uL (0.7-4.9); Absolute Monocytes 1.1 K/uL (0.1-1.3); Absolute Neutrophil 8.5 K/uL (1.8-8.0); Basophils % 1.1 % (0-1.3); Eosinophils % 1.9 % (0-4.4); Hematocrit 27.4 % (39.6-49.0); Hemoglobin 8.3 g/dL (13.6-17.9); MCH 25.5 pg (27.0-35.0); MCHC 30.4 g/dL (32.0-36.0); MCV 83.8 fL (80-100); MPV 8.1 fL (7.6-11.3); Monocytes % 9.5 % (3.3-12.3); Neutrophils % 75.5 % (41.7-73.7); Nucleated Red Blood Cells % 0.2 % (0-0); Platelets 371 thou/uL (152-406); RBC Red Blood Cell Count 3.27 M/uL (4.33-5.43)
[2025-03-22 10:36] LABS: PT Prothrombin Time 13.7 SECONDS (10-13.0); PTT, Activated Partial Thromb 36.7 SECONDS (27.2-37.4); Protime INR 1.21
[2025-03-22 10:49] LABS: Anion Gap 6.5 mEq/L (5.0-15.0); Potassium 3.5 mEq/L (3.5-5.1)
--- NOTE | 2025-03-22 13:00 | RAD REPORT ---
EXAMINATION: TWO VIEW CHEST XR CLINICAL INDICATION: Male, 74 years old. [facility] pre op for [facility]. Hypertension TECHNIQUE: 2 view radiographs of the chest were performed. COMPARISON: 11/27/2024 FINDINGS: The lungs are well inflated. Partial improvement of aeration in the right base, with pleural catheter in place. Central interstitial prominence otherwise appears stable. No pneumothorax or other sizable effusion. The heart is normal in size. Mediastinal contours are unremarkable. IMPRESSION: Partial improvement in right basal pleural-parenchymal opacity.. Otherwise stable central interstitia l prominence which suggests central congestion or CHF.
[2025-03-23] MEDS ORDERED: NA CHLORIDE 0.9% 500 ML ONE (07:07)
[2025-03-23] MEDS ORDERED: HEPA 1000U/500MLS 2,000 UNIT/1,000 ML BAG IV ONE (07:10)
[2025-03-23] MEDS ORDERED: MIDAZOLAM HCL 2 MG/2 ML INJ ONE (07:10)
[2025-03-23] MEDS ORDERED: HEPARIN 10,000 UNIT/10 ML VIAL IV ONE (07:10)
[2025-03-23] MEDS ORDERED: LIDOCAINE 1% 20 ML MDV ONE (07:10)
[2025-03-23] MEDS ORDERED: VERAPAMIL HCL 10 MG/4 ML VIAL IV ONE (07:10)
[2025-03-23] MEDS ORDERED: HEPARIN 5000 UNIT/ML 1 ML VIAL ONE (07:11)
[2025-03-23] MEDS ORDERED: ATROPINE SULF 1 MG/10 ML SYR IV ONE (07:11)
[2025-03-23] MEDS ORDERED: FENTANYL CITR 100 MCG/2 ML ONE (07:11)
[2025-03-23] MEDS ORDERED: NITROGLYCERIN/D5W 50 MG/250 ML BTL IV ONE (07:17)
[2025-03-23 09:47] VITALS: O2SAT 95
--- NOTE | 2025-03-23 10:13 | OP ---
Date of Procedure: 03/23/2025 Surgeon: DAXA MERCHANT Procedures Performed: 1. Selective coronary angiogram. 2. Left heart catheterization. Indications: 1. Unstable angina. 2. Aortic valve stenosis. Access: Right radial artery, 6-Bermudian, closed with TR band. Complications: None. Bleeding: Less than 50 mL. Total Sedation Time: 45 minutes, used fentanyl and Versed. Description Of Procedure: After risks, benefits, and alternatives were explained, the patient agreed to procedure and signed informed consent. [facility] and draped in usual sterile fashion, and then accessed right radial artery using pedi atric micropuncture kit and placed 6-Bermudian slender sheath. Took 5-Bermudian [place] 4 catheter into the aortic root, across the aortic valve, measured the LVEDP. Pullback did not record any significant gr adient. Then engaged left main and took standard views, and then engaged the RCA, took standard view s and removed the catheter and sheath, placed TR band with good hemostasis. Findings: 1. Left main: Large, long and normal. 2. LAD: Large vessel. Proximal segment is normal. Mid segment, 2 rather long lesions, each about 3 0%. Diagonal 1 has proximal 30% stenosis. Rest of the LAD is with luminal irregularities. 3. Left circumflex has normal takeoff that comes off the right coronary cusp and is with luminal irre gularities. 4. RCA: Large and dominant. Proximal 40%, mid 20%, and then PL and PDA have luminal irregularities that are mild. 5. LVEDP is 17 mmHg and no significant gradient across the aortic valve. Conclusion: 1. Moderate coronary artery disease. 2. Normally functioning aortic valve bioprosthesis. Recommendation: Medical management. SR/MODL Voice ID: [id number] Report ID: [id number]
[2025-03-23 10:53] VITALS: BP 154/70
--- NOTE | 2025-03-27 12:38 | EKG ---
Test Date: 2025-03-22 Test Time: 10:31:22 Registered Associate: ALINA MEASUREMENT RESULTS: Intervals: Rate: 68 VT: QRSD: 148 QT: 450 QTc: 478 [place]: P: VT: QRS: 68 T: -72 INTERPRETIVE STATEMENTS: Atrial fibrillation Right bundle branch block Minimal voltage criteria for LVH, may be normal variant Septal infarct, age undetermined T wave abnormality, consider lateral ischemia or digitalis effect Abnormal ECG Compared to ECG 11/27/2024 11:41:20 Right bundle-branch block now present Left ventricular hypertrophy now present T-wave abnormality now present ST (T wave) deviation no longer present Myocardial infarct finding still present Possible ischemia still present Electronically Signed On 03-27-25 12:28:08 CDT by Pardeep Brown
== END 2025-03-23 10:45 | disposition home or self-care (01) ==
LOC: PRE 06:50 → CCL 10:45
PROVIDERS: ATTEND Internal Medicine
DX: I25.110 Atherosclerotic heart disease of native coronary artery with unstable angina pectoris (principal); I35.0 Nonrheumatic aortic (valve) stenosis; I34.0 Nonrheumatic mitral (valve) insufficiency; I11.0 Hypertensive heart disease with heart failure; I50.32 Chronic diastolic (congestive) heart failure; I42.9 Cardiomyopathy, unspecified; I65.23 Occlusion and stenosis of bilateral carotid arteries; I70.203 Unspecified atherosclerosis of native arteries of extremities, bilateral legs; R73.03 Prediabetes; Z87.891 Personal history of nicotine dependence
CPT/HCPCS: 93005; 85025; 80048; 36415; 85610; 85730; 71046; 93458; 76937; C1893; Q9966; J1644 ×2; J2003; J2250; J3010; J7040; J0461